=== PATIENT | female | born 1965 | race Two or more races ===

== ENCOUNTER 2018-11-16 16:59 | Inpatient (IN) | payer MEDICARE, MEDICAID ==
[~2018-11-16] VITALS: Ht 149.9 cm; Wt 69.4 kg
--- NOTE | 2018-11-16 17:30 | NUR ---
ED Nurse Note: Pt came from [facility] due to ALOC that started 3 days ago. According to EMS, pt is normall A + O x4. Pt is only able to state her name. Pt has ESRD and has a fistula on her right upper arm. Theres an old fistula site on her left upper arm used for BP. Pt skin warm to touch. Sating at 100%on room air Pt went down to CT and xrays were completed.
[2018-11-16] MEDS ORDERED: NORCO 5-325 TA1 EACH ORAL (17:33)
[2018-11-16] MEDS ORDERED: FLEET ENEMA133 ML RECTAL (17:33)
[2018-11-16] MEDS ORDERED: MILK OF MA2400 MG/10 ORAL (17:33)
[2018-11-16] MEDS ORDERED: BISACODYL10 M1 RC (17:33)
[2018-11-16] MEDS ORDERED: TYLENOL EXTRA500 MG ORAL (17:33)
[2018-11-16 17:34] VITALS: BP 161/62
--- NOTE | 2018-11-16 17:37 | NUR ---
ED Nurse Note: Blood has been collected and sent to lab.
--- NOTE | 2018-11-16 17:42 | NUR ---
ED Nurse Note: Pt came back from CT.
--- NOTE | 2018-11-16 17:44 | NUR ---
ED Nurse Note: Notified MD of pt unable to provide urine. Will continue to monitor.
--- NOTE | 2018-11-16 17:56 | Emergency Room Report ---
History of Present Illness General Chief Complaint: Altered Level of Consciousness Source: EMS, PMD Present Illness HPI 53-year-old female coming from skilled nursing, has a history of right hip fracture , end-stage renal disease, hypertension presenting with lethargy for the last 3 days as well as episode of hypoxia today. Reportedly at the skilled nursing sheet desat to the 80s, EMS said that she has been above 90 the entire time. Patient is very lethargic, only AOx1 but somewhat answering some questions appropriately. Says that she does feel short of breath. Not noted to be coughing.. No other history able to be obtained Allergies: Coded Allergies: No Known Allergies (Unverified , 11/16/18) Patient History Past Medical History: see triage record Past Surgical History: none Pertinent Family History: none Now: No Reviewed Nursing Documentation: PMH: Agreed; PSxH: Agreed Nursing Documentation-PMH Hx Dialysis: Yes Review of Systems All Other Systems: negative except mentioned in HPI Physical Exam Vital Signs Date Time Temp Pulse Resp B/P (MAP) Pulse Ox O2 Delivery O2 Flow Rate FiO2 11/16/18 16:53 98.4 87 16 166/88 100 Room Air 11/16/18 17:34 100 Sp02 EP Interpretation: reviewed, normal General Appearance: alert, mild distress, Chronically Ill Head: normocephalic, atraumatic Eyes: bilateral eye normal inspection, bilateral eye PERRL, bilateral eye EOMI ENT: normal ENT inspection, normal pharynx, normal voice, moist mucus membranes Neck: normal inspection, full range of motion, supple Respiratory: other - Short of breath but she is speaking complete sentences satting 99% on 2 L nasal cannula, coarse breath sounds on the right side Cardiovascular #1: normal inspection, regular rate, rhythm, normal capillary refill Cardiovascular #2: 2+ radial (R), 2+ radial (L) Gastrointestinal: normal inspection, non tender, soft, non-distended, no guarding Musculoskeletal: other - Limited range of motion of right hip secondary to pain , which is chronic for her secondary to hip replacement Neurologic: other - aox1 only Psychiatric: normal inspection, judgement/insight normal, memory normal Skin: normal inspection, normal color, no rash, warm/dry, well hydrated, normal turgor Medical Decision Making Diagnostic Impression: Primary Impression: Altered level of consciousness Additional Impression: Healthcare-associated pneumonia ER Course 53-year-old female, lethargy for the last 3 days, also hypoxic today DDX: Dehydration, electrolyte disturbance, ACS, URI, pneumonia Plan: Obtain labs, ua, EKG, CXR ER course: Patient has been monitored during ED stay, HD stable given abx for HCAP Disposition: Patient is to be admitted to tele D/W hospitalist Dr. Rider Please note that this Emergency Department Report was dictated using oragenic[employer] worker masters technology software, occasionally this can lead to erroneous entry secondary to interpretation by the dictation equipment. EKG Diagnostic Results EP Interpretation: Yes Rate: normal Rhythm: NSR ST Segments: T-wave flattening noted to be diffuse ASA given to patient: No Rhythm Strip EP Interpretation: Yes Rate: 81 Rhythm: NSR, no PVCs, no ectopy Chest X-ray CXR: Ordered: Yes 1 view Indication: sob EP interpretation: Yes Interpretation: Cardiomegaly with some congestion and pop possible right-sided pneumonia Impression: Cardiomegaly with some congestion and pop possible right-sided pneumonia Electronically signed by Narendra Alves MD Laboratory Tests Test 11/16/18 17:25 White Blood Count 3.5 K/UL (4.8-10.8) L Red Blood Count 2.69 M/UL (4.20-5.40) L Hemoglobin 8.8 G/DL (12.0-16.0) L Hematocrit 28.1 % (37.0-47.0) L Mean Corpuscular Volume 104 FL (80-99) H Mean Corpuscular Hemoglobin 32.6 PG (27.0-31.0) H Mean Corpuscular Hemoglobin Concent 31.2 G/DL (32.0-36.0) L Red Cell Distribution Width 18.5 % (11.6-14.8) H Platelet Count 98 K/UL (150-450) L Mean Platelet Volume 7.8 FL (6.5-10.1) Neutrophils (%) (Auto) % (45.0-75.0) Lymphocytes (%) (Auto) % (20.0-45.0) Monocytes (%) (Auto) % (1.0-10.0) Eosinophils (%) (Auto) % (0.0-3.0) Basophils (%) (Auto) % (0.0-2.0) Differential Total Cells Counted 100 Neutrophils % (Manual) 56 % (45-75) Lymphocytes % (Manual) 36 % (20-45) Monocytes % (Manual) 5 % (1-10) Eosinophils % (Manual) 2 % (0-3) Basophils % (Manual) 1 % (0-2) Band Neutrophils 0 % (0-8) Platelet Estimate Decreased L Platelet Morphology Normal Hypochromasia 1+ Anisocytosis 1+ Sodium Level 139 MMOL/L (136-145) Potassium Level 5.1 MMOL/L (3.5-5.1) Chloride Level 100 MMOL/L (98-107) Carbon Dioxide Level 28 MMOL/L (21-32) Anion Gap 11 mmol/L (5-15) Blood Urea Nitrogen 46 mg/dL (7-18) H Creatinine 5.3 MG/DL (0.55-1.30) H Estimate Glomerular Filtration Rate 8.4 mL/min (>60) Glucose Level 101 MG/DL (74-106) Lactic Acid Level 2.30 mmol/L (0.4-2.0) H Calcium Level 9.8 MG/DL (8.5-10.1) Total Bilirubin 0.4 MG/DL (0.2-1.0) Aspartate Amino Transferase (AST) 23 U/L (15-37) Alanine Aminotransferase (ALT) 16 U/L (12-78) Alkaline Phosphatase 1175 U/L (46-116) H Total Creatine Kinase 34 U/L (26-308) Troponin I 0.008 ng/mL (0.000-0.056) Pro-B-Type Natriuretic Peptide 3750 pg/mL (0-125) H Total Protein 6.7 G/DL (6.4-8.2) Albumin 3.4 G/DL (3.4-5.0) Globulin 3.3 g/dL Albumin/Globulin Ratio 1.0 (1.0-2.7) Last Vital Signs Date Time Temp Pulse Resp B/P (MAP) Pulse Ox O2 Delivery O2 Flow Rate FiO2 11/16/18 17:34 84 22 Room Air 100 11/16/18 17:34 97.1 161/62 100 Disposition: ADMITTED INPATIENT Condition: Serious Narendra Alves M.D. Nov 16, 2018 17:56
[2018-11-16 18:04] LABS: HEMATOCRIT 28.1 % (37.0-47.0); HEMOGLOBIN 8.8 G/DL (12.0-16.0); MEAN CORPUSCULAR VOLUME 104 FL (80-99); PLATELET COUNT 98 K/UL (150-450); RED BLOOD COUNT 2.69 M/UL (4.20-5.40); RED CELL DISTRIBUTION WIDTH 18.5 % (11.6-14.8); WHITE BLOOD COUNT 3.5 K/UL (4.8-10.8)
[2018-11-16 18:11] LABS: ALANINE AMINOTRANSFERASE 16 U/L (12-78); ALBUMIN 3.4 G/DL (3.4-5.0); ALKALINE PHOSPHATASE 1175 U/L (46-116); ANION GAP 11 mmol/L (5-15); ASPARTATE AMINO TRANSFERASE 23 U/L (15-37); BILIRUBIN,TOTAL 0.4 MG/DL (0.2-1.0); BLOOD UREA NITROGEN 46 mg/dL (7-18); CALCIUM 9.8 MG/DL (8.5-10.1); CARBON DIOXIDE 28 MMOL/L (21-32); CHLORIDE 100 MMOL/L (98-107); CREATINE KINASE 34 U/L (26-308); CREATININE 5.3 MG/DL (0.55-1.30); POTASSIUM 5.1 MMOL/L (3.5-5.1); SODIUM 139 MMOL/L (136-145)
--- NOTE | 2018-11-16 19:12 | NUR ---
HAND-OFF: Report given to NICHO Wong.
[2018-11-16 19:46] VITALS: BP 178/62
--- NOTE | 2018-11-16 20:34 | NUR ---
ED Nurse Note: pt on bed, responsive to name, not verbally responsive. vital sign within normal limit. will continue to monitor.
[2018-11-16 23:45] VITALS: BP 143/78
--- NOTE | 2018-11-16 23:50 | NUR ---
ED Nurse Note: pt admitted in the hospital pt transfered to tele 202 with tape coater and monitor. report given to mayela obando
[2018-11-17] VITALS: BP 160/71
--- NOTE | 2018-11-17 00:10 | NUR ---
NURSE NOTES: Received patient from ED, report received from NICHO Wong. Patient awake, alert and verbally responsive. No SOB, no acute distress, denies any pain nor any discomfort at this time. No skin breakdown noted, R upper arm with fistula for HD. IV sites on L FA #20 and L hand #22, both sites patent and intact. Oriented to unit and staff. Placed environmental monitoring technician. No belongings. Bed at lowest position, call light within reach. Paged Dr. Doran for admission orders.
[2018-11-17 04:00] VITALS: BP 155/69
--- NOTE | 2018-11-17 06:50 | Consultation ---
History of Present Illness General Date patient seen: Nov 17, 2018 Chief Complaint: Altered Level of Consciousness Present Illness Allergies: Coded Allergies: No Known Allergies (Unverified , 11/16/18) Medication History Scheduled Magnesium Hydroxide* (Milk Of Magnesia*), 30 ML ORAL DAILY, (Reported) Na Phos,M-B/Na Phos,Di-Ba* (Fleet Enema*), 133 ML RECTAL DAILY, (Reported) Scheduled PRN Acetaminophen* (Tylenol Extra Strength*), 500 MG ORAL Q6H PRN for Mild Pain/ Temp > 100.5, (Reported) Hydrocodone Bit/Acetaminophen 5-325* ([place] 5-325*), 1 TAB ORAL Q6H PRN for For Pain, (Reported) Miscellaneous Medications Bisacodyl (Bisacodyl), 10 MG RC, (Reported) Patient History Healthcare decision maker Resuscitation status Full Code Advanced Directive on File Yes Physical Exam Last 24 Hour Vital Signs Date Time Temp Pulse Resp B/P (MAP) Pulse Ox O2 Delivery O2 Flow Rate FiO2 11/17/18 04:00 82 11/17/18 04:00 97.8 81 18 155/69 (97) 98 11/17/18 00:13 Room Air 11/17/18 00:00 80 11/17/18 00:00 98.1 79 18 160/71 (100) 98 11/16/18 23:50 98.0 82 16 143/54 100 Room Air 82 11/16/18 23:45 98.0 82 16 143/78 100 Room Air 11/16/18 19:46 98.3 82 16 178/62 100 Room Air 11/16/18 17:34 84 22 Room Air 100 11/16/18 17:34 97.1 84 22 161/62 100 Room Air 11/16/18 16:53 98.4 87 16 166/88 100 Room Air Intake and Output 11/16/18 11/17/18 19:00 07:00 Intake Total 60 ml Balance 60 ml Intake Oral 60 ml Laboratory Tests Test 11/16/18 17:25 11/16/18 18:30 White Blood Count 3.5 K/UL (4.8-10.8) L Red Blood Count 2.69 M/UL (4.20-5.40) L Hemoglobin 8.8 G/DL (12.0-16.0) L Hematocrit 28.1 % (37.0-47.0) L Mean Corpuscular Volume 104 FL (80-99) H Mean Corpuscular Hemoglobin 32.6 PG (27.0-31.0) H Mean Corpuscular Hemoglobin Concent 31.2 G/DL (32.0-36.0) L Red Cell Distribution Width 18.5 % (11.6-14.8) H Platelet Count 98 K/UL (150-450) L Mean Platelet Volume 7.8 FL (6.5-10.1) Neutrophils (%) (Auto) % (45.0-75.0) Lymphocytes (%) (Auto) % (20.0-45.0) Monocytes (%) (Auto) % (1.0-10.0) Eosinophils (%) (Auto) % (0.0-3.0) Basophils (%) (Auto) % (0.0-2.0) Differential Total Cells Counted 100 Neutrophils % (Manual) 56 % (45-75) Lymphocytes % (Manual) 36 % (20-45) Monocytes % (Manual) 5 % (1-10) Eosinophils % (Manual) 2 % (0-3) Basophils % (Manual) 1 % (0-2) Band Neutrophils 0 % (0-8) Platelet Estimate Decreased L Platelet Morphology Normal Hypochromasia 1+ Anisocytosis 1+ Sodium Level 139 MMOL/L (136-145) Potassium Level 5.1 MMOL/L (3.5-5.1) Chloride Level 100 MMOL/L (98-107) Carbon Dioxide Level 28 MMOL/L (21-32) Anion Gap 11 mmol/L (5-15) Blood Urea Nitrogen 46 mg/dL (7-18) H Creatinine 5.3 MG/DL (0.55-1.30) H Estimat Glomerular Filtration Rate 8.4 mL/min (>60) Glucose Level 101 MG/DL (74-106) Lactic Acid Level 2.30 mmol/L (0.4-2.0) H 1.80 mmol/L (0.66-2.22) Calcium Level 9.8 MG/DL (8.5-10.1) Total Bilirubin 0.4 MG/DL (0.2-1.0) Aspartate Amino Transf (AST/SGOT) 23 U/L (15-37) Alanine Aminotransferase (ALT/SGPT) 16 U/L (12-78) Alkaline Phosphatase 1175 U/L (46-116) H Total Creatine Kinase 34 U/L (26-308) Troponin I 0.008 ng/mL (0.000-0.056) Pro-B-Type Natriuretic Peptide 3750 pg/mL (0-125) H Total Protein 6.7 G/DL (6.4-8.2) Albumin 3.4 G/DL (3.4-5.0) Globulin 3.3 g/dL Albumin/Globulin Ratio 1.0 (1.0-2.7) Microbiology Date/Time Source Procedure Growth Status 11/16/18 18:30 Nasal Nares Influenza Types A,B Antigen (ALFA) - Final Complete Height (Feet): 4 Height (Inches): 11.00 Weight (Pounds): 100 Medications Current Medications Medications (Trade) Dose Ordered Sig/Claudy Route PRN Reason Start Time Stop Time Status Last Admin Dose Admin Acetaminophen (Tylenol) 650 mg Q6H PRN ORAL Mild Pain/Temp > 100.5 11/17/18 00:45 12/17/18 00:44 Acetaminophen/ Hydrocodone Bitart ([place] 5/325) 1 tab Q4H PRN ORAL For moderate to severe pain 11/17/18 00:45 11/24/18 00:44 Aspirin (ASA) 81 mg DAILY ORAL 11/17/18 09:00 12/17/18 08:59 Clonidine HCl (Catapres Tab) 0.1 mg Q6H PRN ORAL For High Blood Pressure 11/17/18 00:45 12/17/18 00:44 Docusate Sodium (Colace) 100 mg TWICE A DAY ORAL 11/17/18 09:00 12/17/18 08:59 Ferric Citrate (Auryxia 210mg) 420 mg TID ORAL 11/17/18 09:00 12/17/18 08:59 Gabapentin (Neurontin) 100 mg Q8HR ORAL 11/17/18 06:00 12/17/18 05:59 11/17/18 06:10 Sevelamer Carbonate (Renvela) 240 mg THREE TIMES A DAY ORAL 11/17/18 09:00 12/17/18 08:59 UNV Vitamin B Complex/ Vit C/Folic Acid (Nephrovite) 1 tab DAILY ORAL 11/17/18 09:00 12/17/18 08:59 Assessment/Plan Status Narrative Hematology Consult Note REQ MD: Billy Doran DOS: 11/17/18 RFC: Panctyopenia eval Chief Complaint: Altered Level of Consciousness ID 53-year-old female coming from [facility], has a history of right hip fracture , end-stage renal disease, hypertension presenting with lethargy for the last 3 days as well as episode of hypoxia today. Reportedly at the halfway sheet desat to the 80s, EMS said that she has been above 90 the entire time. Patient is very lethargic, only AOx1 but somewhat answering some questions appropriately. Says that she does feel short of breath. Not noted to be coughing. This is her first time here and do not have prior records, other services consulted this am as well. Coded Allergies: No Known Allergies (Unverified , 11/16/18) Patient History Past Medical History: see triage record Past Surgical History: RENAL transplant, hip replacement Pertinent Family History: none Now: No Reviewed Nursing Documentation: PMH: Agreed; PSxH: Agreed Hx Dialysis: Yes Review of Systems All Other Systems: negative except mentioned in HPI Patient is a poor historian difficult to obtain any meaningful history ER Physical Exam - General Physical Exam Last 24 Hour Vital Signs Date Time Temp Pulse Resp B/P (MAP) Pulse Ox O2 Delivery O2 Flow Rate FiO2 11/17/18 04:00 82 11/17/18 04:00 97.8 81 18 155/69 (97) 98 11/17/18 00:13 Room Air 11/17/18 00:00 80 11/17/18 00:00 98.1 79 18 160/71 (100) 98 11/16/18 23:50 98.0 82 16 143/54 100 Room Air 82 11/16/18 23:45 98.0 82 16 143/78 100 Room Air 11/16/18 19:46 98.3 82 16 178/62 100 Room Air 11/16/18 17:34 84 22 Room Air 100 11/16/18 17:34 97.1 84 22 161/62 100 Room Air 11/16/18 16:53 98.4 87 16 166/88 100 Room Air General Appearance: alert, mild distress, Chronically Ill Eyes: bilateral eye normal inspection, bilateral eye PERRL ENT: normal ENT inspection, normal pharynx, normal voice Neck: normal inspection Respiratory: speaking complete sentences satting 99% on 2 Lnc oarse breath sounds on the right side Cardiovascular normal inspection, regular rate, rhythm Gastrointestinal: normal inspection, non tender, soft, nt Musculoskeletal: other - Limited range of motion of right hip secondary to pain , hip replacement Neurologic: other - aox1 only Psychiatric: normal inspection, memory normal Skin: normal inspection, normal color, no rash, warm/dry, well hydrated Laboratory Tests Test 11/16/18 17:25 11/16/18 18:30 White Blood Count 3.5 K/UL (4.8-10.8) L Red Blood Count 2.69 M/UL (4.20-5.40) L Hemoglobin 8.8 G/DL (12.0-16.0) L Hematocrit 28.1 % (37.0-47.0) L Mean Corpuscular Volume 104 FL (80-99) H Mean Corpuscular Hemoglobin 32.6 PG (27.0-31.0) H Mean Corpuscular Hemoglobin Concent 31.2 G/DL (32.0-36.0) L Red Cell Distribution Width 18.5 % (11.6-14.8) H Platelet Count 98 K/UL (150-450) L Mean Platelet Volume 7.8 FL (6.5-10.1) Neutrophils (%) (Auto) % (45.0-75.0) Lymphocytes (%) (Auto) % (20.0-45.0) Monocytes (%) (Auto) % (1.0-10.0) Eosinophils (%) (Auto) % (0.0-3.0) Basophils (%) (Auto) % (0.0-2.0) Differential Total Cells Counted 100 Neutrophils % (Manual) 56 % (45-75) Lymphocytes % (Manual) 36 % (20-45) Monocytes % (Manual) 5 % (1-10) Eosinophils % (Manual) 2 % (0-3) Basophils % (Manual) 1 % (0-2) Band Neutrophils 0 % (0-8) Platelet Estimate Decreased L Platelet Morphology Normal Hypochromasia 1+ Anisocytosis 1+ Sodium Level 139 MMOL/L (136-145) Potassium Level 5.1 MMOL/L (3.5-5.1) Chloride Level 100 MMOL/L (98-107) Carbon Dioxide Level 28 MMOL/L (21-32) Anion Gap 11 mmol/L (5-15) Blood Urea Nitrogen 46 mg/dL (7-18) H Creatinine 5.3 MG/DL (0.55-1.30) H Estimat Glomerular Filtration Rate 8.4 mL/min (>60) Glucose Level 101 MG/DL (74-106) Lactic Acid Level 2.30 mmol/L (0.4-2.0) H 1.80 mmol/L (0.66-2.22) Calcium Level 9.8 MG/DL (8.5-10.1) Total Bilirubin 0.4 MG/DL (0.2-1.0) Aspartate Amino Transf (AST/SGOT) 23 U/L (15-37) Alanine Aminotransferase (ALT/SGPT) 16 U/L (12-78) Alkaline Phosphatase 1175 U/L (46-116) H Total Creatine Kinase 34 U/L (26-308) Troponin I 0.008 ng/mL (0.000-0.056) Pro-B-Type Natriuretic Peptide 3750 pg/mL (0-125) H Total Protein 6.7 G/DL (6.4-8.2) Albumin 3.4 G/DL (3.4-5.0) Globulin 3.3 g/dL Albumin/Globulin Ratio 1.0 (1.0-2.7) Assessment and Recs: # Pancytopenia cause is yet unknown, patient is a very poor historian, and no prior labs noted in the emr or chart --> begin w/u with iron panel, hepatitis, hiv, us abdomen --> get a ammonia level --> meds reviewed, no culprits noted --> if above doesn't gonzalez out, consider to get a bone marrow biopsy --> neupogen if anc <1000, hgb >7, plt >20k # Altered level of consciousness -- could be related to pna --> abx have been started # Healthcare-associated pneumonia # ESRD nephro consulted # Lactic acidosis --> lactate downtrended # Hypoxic today due to pna # Dehydration, electrolyte disturbance Time of note does not reflect time of encounter Greatly appreciate consultation Endy Fox MD Nov 17, 2018 06:50
--- NOTE | 2018-11-17 07:22 | NUR ---
HAND-OFF: Report given to NICHO Munson. Endorsed plan of care.
--- NOTE | 2018-11-17 07:23 | NUR ---
NURSE NOTES: Received patient in bed. In no apparent distress. On room air. In no apparent distress. Will continue plan of care.
[2018-11-17 08:00] VITALS: BP 147/65
[2018-11-17] MEDS ORDERED: Docusate 100mg cap ORAL SCH (09:00)
[2018-11-17] MEDS: Nephrovite tab (Rena-Vite) ORAL SCH (09:07)
[2018-11-17] MEDS: Aspirin Baby 81mg ORAL SCH (09:07)
--- NOTE | 2018-11-17 09:24 | Diagnostic Imaging Report ---
Indications: Altered mental status Technique: Spiral acquisitions obtained through the brain. Angled axial and coronal 5 x 5 mm slices were reconstructed. Total dose length product 1344.28 mGycm. CTDI vol(s) 70.38 mGy. Dose reduction achieved using automated exposure control Comparison: None. Findings: Extra-axial CSF spaces are prominent, consistent with cortical volume loss, out of proportion to age. No acute intracranial hemorrhage nor edema. No mass effect nor midline shift. Normal carmona-white differentiation. There are bilateral maxillary sinus polyps versus mucous retention cysts. There is bilateral ethmoid sinus disease. Unusual appearance to the calvarium, with absence of the diploic space. Mastoids are clear Impression: Through cortical volume loss, out of proportion to patient's age Negative for acute intracranial bleed or mass effect Unusual appearance to the bones. Correlate with any clinical history of systemic disease. This agrees with the preliminary interpretation provided overnight by [facility] teleradiology service. The CT scanner at [facility] is accredited by the [employer] and the scans are performed using protocols designed to limit radiation exposure to as low as reasonably achievable to attain images of sufficient resolution adequate for diagnostic evaluation.
--- NOTE | 2018-11-17 09:30 | NUR ---
HAND-OFF: Report given to NICHO Ibarra.
[2018-11-17 10:14] LABS: HEMATOCRIT 27.8 % (37.0-47.0); HEMOGLOBIN 8.5 G/DL (12.0-16.0); MEAN CORPUSCULAR VOLUME 105 FL (80-99); PLATELET COUNT 91 K/UL (150-450); RED BLOOD COUNT 2.64 M/UL (4.20-5.40); RED CELL DISTRIBUTION WIDTH 18.2 % (11.6-14.8)
[2018-11-17 10:26] LABS: INR 1.1 (0.9-1.1)
[2018-11-17 10:40] LABS: ALANINE AMINOTRANSFERASE 12 U/L (12-78); ALBUMIN 2.9 G/DL (3.4-5.0); ALBUMIN/GLOBULIN RATIO 0.9 (1.0-2.7); ALKALINE PHOSPHATASE 1040 U/L (46-116); ANION GAP 8 mmol/L (5-15); ASPARTATE AMINO TRANSFERASE 18 U/L (15-37); BILIRUBIN,TOTAL 0.4 MG/DL (0.2-1.0); BLOOD UREA NITROGEN 50 mg/dL (7-18); CARBON DIOXIDE 29 MMOL/L (21-32); CHLORIDE 100 MMOL/L (98-107); CREATININE 5.8 MG/DL (0.55-1.30); POTASSIUM 5.3 MMOL/L (3.5-5.1); SODIUM 137 MMOL/L (136-145)
--- NOTE | 2018-11-17 11:19 | Diagnostic Imaging Report ---
Indication: Shortness of breath Technique: One view of the chest Comparison: none Findings: There is mild interstitial prominence and central bronchial wall thickening, acuity indeterminate. The heart size is upper limits of normal. Pleural spaces are clear. No focal airspace consolidation. Densities are seen in the upper abdomen. This may reflect contrast from prior enteric contrast administration versus calcifications. Impression: Acuity indeterminate mild bilateral interstitial disease. Given presence of central bronchial wall thickening, this may well be chronic. Negative for infiltrate or effusion. Other findings as noted
[2018-11-17 12:00] VITALS: BP 127/50
--- NOTE | 2018-11-17 12:10 | NUR ---
NURSE NOTES: Ferric citrate was ordered for the patient. The pharmacy does not dispense the medication. The patient said her family is not able to bring the medication to the hospital. Dr. Doran was made aware.
--- NOTE | 2018-11-17 14:00 | NUR ---
RESPIRATORY NOTE: Pt on room air. MD ordered ABG attempted once patient could not tolerate pain. Will try again later (patient is slovenian speaking)
--- NOTE | 2018-11-17 14:27 | NUR ---
CASE MANAGEMENT:REVIEW BIBA FROM [facility] CC; ALOC PMH: ESRD ON HD SI: AMS. TACHYCARDIA. PNA 98.5 87 16 166/88 100% ON RA WBC-3.5 H/H-8.8/28.1 IS: CT HEAD BLOOD CX : TO TELEMETRY PLAN: NEURO CHECKS Q4HRS
[2018-11-17 16:00] VITALS: BP 138/62
--- NOTE | 2018-11-17 16:03 | Cardiology Report ---
APPROVED REPORT EKG Measurement Heart [id number] Normal sinus rhythm Low voltage QRS Cannot rule out Anterior infarct, age undetermined Abnormal ECG
--- NOTE | 2018-11-17 16:08 | Cardiology Report ---
APPROVED REPORT EXAM: Two-dimensional and M-mode echocardiogram with Doppler and color Doppler. INDICATION Congestive Heart Failure M-Mode DIMENSIONS IVSd0.7 (0.7-1.1cm)Left Atrium (MM)3.4 (1.6-4.0cm) LVDd5.9 (3.5-5.6cm)Aortic Root3.4 (2.0-3.7cm) PWd0.8 (0.7-1.1cm)Aortic Cusp Exc.1.6 (1.5-2.0cm) IVSs1.4 cm LVDs3.4 (2.5-4.0cm) PWs1.0 cm Normal left ventricular chamber size, systolic function and wall motion. Left ventricular ejection fraction estimated to be 60-65 %. Mild left ventricular hypertrophy. Small posterior pericardial effusion. Pleural effusion present . Mild left atrial enlargement by 2-D . Right cardiac chamber size are within normal limits. Moderately thickened mitral valve leaflets with normal excursion . Moderate mitral annulus and aortic root calcification. Pulmonic valve not well visualized. Normal tricuspid valve structure. IVC dilated at 2.5 cm with slight physiologic collapse suggestive of increased RA pressure. A color flow and spectral Doppler study was performed and revealed: No aortic regurgitation. Mild to moderate mitral regurgitation. Normal left ventricular diastolic function . Mild tricuspid regurgitation. Tricuspid systolic velocities suggests peak right ventricular systolic pressure of 51 mmHg, consistent with moderate pulmonary hypertension.
--- NOTE | 2018-11-17 16:36 | Consultation ---
Consult Note Consult Note asked to eval for dialysis management 53-year-old female coming from [facility], has a history of right hip fracture , end-stage renal disease, hypertension presenting with lethargy for the last 3 days as well as episode of hypoxia today. Reportedly at the [facility] sheet desat to the 80s, EMS said that she has been above 90 the entire time. Patient is very lethargic, only AOx1 but somewhat answering some questions appropriately. Says that she does feel short of breath. Not noted to be coughing.. No other history able to be obtained No Known Allergies (Unverified , 11/16/18) Hx Dialysis: Yes HTN examined interviewed via translater Assessment/Plan ESRD on HD M W Fr - on HD about 12 years Admitted with CP and SOB Anemia of CKD HTN RENAL transplant, right hip replacement Pneumonia / Hypoxia Hypothyroidism HD in am Phos binders Synthroid Dexter Mccall MD Nov 17, 2018 16:36
[2018-11-17] MEDS: Docusate 100mg cap ORAL SCH (18:11)
--- NOTE | 2018-11-17 18:28 | NUR ---
NURSE NOTES: Patient has a dialysis order for 11/18. [facility] made aware.
--- NOTE | 2018-11-17 18:30 | Consultation ---
DATE OF CONSULTATION: 11/17/2018 INFECTIOUS DISEASE CONSULTATION CONSULTING PHYSICIAN: Robe Elkins M.D. PRIMARY ATTENDING PHYSICIAN: Mitchell Doran M.D. REASON FOR CONSULTATION: Bronchitis. HISTORY OF PRESENT ILLNESS: This is a 53-year-old female admitted yesterday from a [facility] facility. She had some lethargy for 3 days and has shortness of breath. At the time of admission, she had mild lactic acidosis. No fever. No chills. No coughing. Chest x-ray showed mild bilateral interstitial disease with bronchial wall thickening that may be chronic. PAST MEDICAL HISTORY: Significant for end-stage renal disease, on hemodialysis, hypertension, anemia, has history of hip replacement, has history of polycystic kidney disease, has history of renal transplant, has thyroid nodule, anemia. ALLERGIES: No known drug allergies. MEDICATIONS: Getting Nephro-Otis, aspirin, gabapentin, clonidine, Tylenol, and [place]. SOCIAL HISTORY: Single. custodial resident. Denies alcohol, drug abuse, or smoking. REVIEW OF SYSTEMS: The patient denies any fever, chills, sore throat, coughing, chest pain. PHYSICAL EXAMINATION: VITAL SIGNS: Temperature 98.6, pulse 75, blood pressure 147/65. GENERAL APPEARANCE: No acute distress. Seems to be thin. HEAD AND NECK: Mildly whitish tongue. HEART: Normal rate. LUNGS: Clear. ABDOMEN: Soft, nontender. EXTREMITIES: She has edema of the legs. She has right upper extremity AV shunt and edema of right arm. LABORATORY AND DIAGNOSTIC DATA: Sodium 137, potassium 5.3, chloride 100, bicarbonate 29, BUN 50, creatinine 5.8. WBC 3000, hemoglobin 8.5, hematocrit 27.8, platelets 91,000. Influenza A and B are negative. Head CT showed atrophy more than age-related atrophy. Chest x-ray, bilateral interstitial disease. IMPRESSION: Bronchitis likely chronic, altered mental status with lethargy, hypothyroidism, pancytopenia, end-stage renal disease, hypertension, thyroid nodule discovered in jail before admission. RECOMMENDATION: We will observe off antibiotic. If the patient has symptoms, develops fever, or leukocytosis, we will give antibiotic. At the end of my exam, I thank Dr. Doran for involving me in the care of this patient. Robe Elkins M.D. DR: Lady JOB#: [id number] CC: ALEXANDER
--- NOTE | 2018-11-17 19:31 | NUR ---
HAND-OFF: Report given to NICHO Barraza.
--- NOTE | 2018-11-17 19:40 | NUR ---
NURSE NOTES: Received pt from NICHO Ibrara. Pt asleep. Bed in lowest position. Call light within reach. Will continue to monitor.
--- NOTE | 2018-11-17 19:57 | Consultation ---
Consult Note Assessment/Plan DICT # [id number] Adalberto Carreon MD Nov 17, 2018 19:57
[2018-11-17 20:00] VITALS: BP 126/52
--- NOTE | 2018-11-17 22:00 | Consultation ---
DATE OF CONSULTATION: 11/17/2018 PULMONARY CONSULTATION CONSULTING PHYSICIAN: Adalberto Carreon M.D. REFERRING PHYSICIAN: Mitchell Doran M.D. REASON FOR CONSULTATION: Hypoxemia. HISTORY OF PRESENT ILLNESS: The patient is a very unfortunate 53-year-old longterm resident with a history of polycystic kidney disease, status post failed transplant, now on dialysis; hypothyroidism; hypertension; anemia; recent hip fracture; and known thyroid nodule at a longterm, who presented yesterday with desaturation at the SNF and altered mental status. The patient's preliminary workup in the ER was negative. She has not been oxygen dependent. CT of the brain did not show any acute changes and chest x-ray showed changes compatible with chronic lung disease. Currently, the patient herself has no complaints. She denies any fevers, chills, headaches, dizziness, chest pain, or shortness of breath. Per record, she had acute loss of consciousness at the facility. Her baseline is unclear based on my review. An echo was ordered by myself, which showed a PA systolic pressure of 51 with mild TR, mild to moderate MR, LVEF of 65% with mild LVH, and no significant diastolic dysfunction. PAST MEDICAL HISTORY: 1. End-stage renal disease, status post failed transplant, on dialysis. 2. Recent hip fracture. 3. Hypertension. 4. Anemia. 5. Hypothyroidism. 6. Known thyroid nodule. PAST SURGICAL HISTORY: Renal transplant. ALLERGIES: No known drug allergies. MEDICATIONS: Prior to admission medications reviewed. Current medications reviewed. SOCIAL HISTORY: She denies tobacco, alcohol, or drug use. FAMILY HISTORY: Noncontributory. REVIEW OF SYSTEMS: Negative other than history of present illness. PHYSICAL EXAMINATION: VITAL SIGNS: Temperature 97.9, pulse 76, blood pressure 127/50, and respirations 18. Saturating 98% on room air. GENERAL: She is a well-developed and well-nourished female, appearing older than her stated age HEENT: Normocephalic and atraumatic. Oropharynx is clear with moist mucous membranes. NECK: Supple without lymphadenopathy or jugular venous distention. CHEST: Scattered coarse breath sounds, but fairly clear with good air movement. HEART: Regular rate and rhythm. P2 is noted. ABDOMEN: Soft, nontender, and nondistended. EXTREMITIES: No cyanosis, clubbing, or edema. ANCILLARY DATA: White count 3, hemoglobin 8.5, and platelet count 91. INR 1.1. Sodium 137, potassium 5.3, chloride 100, bicarbonate 29, BUN 50, and creatinine 5.1. Ferritin 1311. Calcium 10. Total bilirubin 0.3, AST 18, ALT 12, and alkaline phosphatase . LDH 127. CRP 1.5. Total protein 6.2. Albumin 2.9. Globulin 3.3. Free T4 0.64. TSH 11. Folate 19.7. Vitamin B12 477. Serologies are pending. Cultures, rapid flu was negative. On 11/16/2018, CT head, cortical volume loss out of proportion to the patient's age. Negative for intracranial bleed. Unusual appearance of the bones. 11/16/2018, chest x-ray shows some mild interstitial prominence. Echocardiogram was noted. ASSESSMENT: The patient is a very unfortunate 53-year-old female, a longterm resident, with a history of end-stage renal disease, status post failed transplant, polycystic kidneys; hypertension; hypothyroidism; and hip fracture presenting with altered mental status and transient hypoxemia at the facility. Currently, her vitals are stable and she is in no respiratory distress. She has been seen by Infectious Disease service and is being observed off antibiotics and pancytopenia is being worked up by Dr. Fox. I am concerned about her hypoxemia at the facility in the setting of elevated PA pressures, though she is hemodynamically stable with no evidence of RV dysfunction. Nonetheless, I will obtain a duplex and D-dimer to rule out venous thromboembolism and an ABG to assess baseline gas exchange. Furthermore, she has chronic interstitial disease and should have a CT of the chest. I am going to wait for the D-dimer to come back. If it is elevated, we will get an angio. If it is negative and the duplex is negative, I will likely get a high-resolution CT. PROBLEM LIST: 1. Transient hypoxemia. 2. Pulmonary hypertension. 3. End-stage renal disease, on dialysis. 4. History of failed renal transplant. 5. Pancytopenia with unclear etiology. 6. Altered level of consciousness. 7. Chronic interstitial changes in the lungs, likely underlying lung disease. 8. Bronchitis. 9. Hypothyroidism. 10. Known thyroid nodule. 11. Lactic acidosis, resolved. 12. Recent hip fracture. TREATMENT PLAN: 1. Optimize pulmonary hygiene/mobilize as tolerated. 2. PRN O2. 3. Check an ABG. 4. Check duplex and D-dimer. 5. If duplex is negative and D-dimer is positive, I will check a CT angio of the chest. 6. If the D-dimer is negative, I will check a noncontrast CT of the chest to evaluate the parenchyma. 7. Observe off antibiotics per Infectious Disease, though with a low threshold to start antimicrobial coverage. 8. Monitor volumes, dialysis per Renal. 9. Workup of pancytopenia per Dr. Fox. 10. DVT prophylaxis. The patient cannot have SCDs until the duplex is done and is not on heparin secondary to thrombocytopenia. 11. The patient is a Full Code. Dr. Doran, thank you for allowing me to assist in the care of your patient. If I may be of any assistance in the future, please do not hesitate to ask. Adalberto Carreon M.D. DR: SADAF JOB#: [id number] CC:
[2018-11-18] VITALS: BP 144/59
--- NOTE | 2018-11-18 01:56 | NUR ---
HAND-OFF: Report given to NICHO Granda. Pt stable.
--- NOTE | 2018-11-18 02:04 | NUR ---
NURSE NOTES: Received report from NICHO Barraza. Patient is asleep lying semi-hall's; resting comfortably. No signs of acute distress or pain noted at this time. Arousable to verbal and tactile stimuli. Checked IV site; patent and flushed. No erythema, bleeding, or infiltration noted. Bedside commode easily accessible. Bed at lowest position, brakes on, siderails up x3. Call light within reach. Will continue to monitor.
[2018-11-18 04:00] VITALS: BP 139/61
--- NOTE | 2018-11-18 05:08 | NUR ---
NURSE NOTES: Per Veronica, respiratory therapist, patient repeatedly refused ABG draw since morning shift. Will reattempt at a later time.
--- NOTE | 2018-11-18 07:00 | History and Physical Report ---
DATE OF ADMISSION: 11/16/2018 HISTORY OF PRESENT ILLNESS: The patient is admitted from the skilled nursing for hypoxia initially. The patient was also hypoxic initially at the skilled nursing. The patient has end-stage renal disease, on hemodialysis. The patient also has been admitted for possible pneumonia versus congestion on the chest x-ray. The patient also was more confused than baseline, and also she was initially tachycardic. The patient also was complaining of as well as mild cough, nonproductive. No fever or chills. PAST MEDICAL HISTORY: End-stage renal disease, on hemodialysis. PAST SURGICAL HISTORY: Right arm fistula, right hip fracture surgery, one kidney transplant, and cholecystectomy. MEDICATIONS: , Levoxyl, gabapentin, Vicodin, Colace, aspirin, , and Protonix. ALLERGIES: No known allergies. SOCIAL HISTORY: Denies history of smoking, alcohol, or illicit drugs. FAMILY HISTORY: Noncontributory. REVIEW OF SYSTEMS: HEENT: Denies headaches. RESPIRATORY: Denies shortness of breath. Does have mild cough, nonproductive. CARDIOVASCULAR: Denies any chest pain. GI: Denies nausea, vomiting, or diarrhea. EXTREMITIES: Reports right pain. SEAM STAYER: No change in speech pattern. PHYSICAL EXAMINATION: VITAL SIGNS: Temperature is 98.6 degrees, pulse is 75, and blood pressure 147/65. HEENT: PERRLA. NECK: Supple. No lymphadenopathy. CHEST: Clear to auscultation. CARDIOVASCULAR: Regular rate and rhythm. No murmurs or extra sounds. GASTROINTESTINAL: Soft. Positive bowel sounds. No organomegaly. EXTREMITIES: 1+ edema. The patient is also edematous around the right arm fistula does not have any signs of infection at this point. Generalized weakness. LABORATORY DATA: WBC of 3.5, hemoglobin 8.8, and platelets of 98. Sodium 137, potassium 5.3, BUN of 50, creatinine 5.8, and glucose of 86. ASSESSMENT AND PLAN: Altered mental status, hypoxia, shortness of breath, rule out congestion versus pneumonia. The patient also consulted Dr. Carreon, Dr. Elkins, and Dr. Mccall for the above-mentioned diagnosis as well as for the treatment of above-mentioned diagnoses. Mitchell Doran M.D. DR: Evin JOB#: [id number] CC:
--- NOTE | 2018-11-18 07:52 | NUR ---
HAND-OFF: Report given to NICHO Gallegos. Patient is awake lying high-hall's watching TV; resting comfortably. In stable condition. Endorsed to oncoming RN regarding patient's hemodialysis procedure later today; verbalized understanding.
[2018-11-18 08:00] VITALS: BP 131/60
--- NOTE | 2018-11-18 08:07 | NUR ---
NURSE NOTES: Report received from NICHO Muñoz. Pt is lying comfortably in semi-fowlers with no sign of distress noted. A+Ox4, denies pain/SOB. IV sites are patent, intact, and saline locked. Respirations are even and unlabored on room air. Bed is at lowest position, brakes engaged, siderails x2, bed alarm on, and call light within reach. Will continue to monitor patient.
[2018-11-18 08:45] LABS: HEMOGLOBIN 8.3 G/DL (12.0-16.0); MEAN CORPUSCULAR VOLUME 105 FL (80-99); PLATELET COUNT 97 K/UL (150-450); RED BLOOD COUNT 2.58 M/UL (4.20-5.40); RED CELL DISTRIBUTION WIDTH 18.3 % (11.6-14.8); WHITE BLOOD COUNT 3.3 K/UL (4.8-10.8)
[2018-11-18] MEDS: Aspirin Baby 81mg ORAL SCH (08:45)
[2018-11-18] MEDS: Nephrovite tab (Rena-Vite) ORAL SCH (08:46)
[2018-11-18] MEDS: Docusate 100mg cap ORAL SCH ×3 (08:46→17:15)
[2018-11-18 09:10] LABS: ALANINE AMINOTRANSFERASE 13 U/L (12-78); ALBUMIN 2.9 G/DL (3.4-5.0); ALBUMIN/GLOBULIN RATIO 0.9 (1.0-2.7); ALKALINE PHOSPHATASE 1013 U/L (46-116); ANION GAP 10 mmol/L (5-15); ASPARTATE AMINO TRANSFERASE 13 U/L (15-37); BILIRUBIN,TOTAL 0.4 MG/DL (0.2-1.0); BLOOD UREA NITROGEN 66 mg/dL (7-18); CALCIUM 9.7 MG/DL (8.5-10.1); CARBON DIOXIDE 28 MMOL/L (21-32); CHLORIDE 98 MMOL/L (98-107); PHOSPHORUS 3.7 MG/DL (2.5-4.9); POTASSIUM 5.4 MMOL/L (3.5-5.1); SODIUM 136 MMOL/L (136-145)
[2018-11-18 09:30] LABS: % IRON SATURATION 64 % (15-50); IRON 67 ug/dL (50-175); TOTAL IRON BINDING CAPACITY 105 ug/dL (250-450)
--- NOTE | 2018-11-18 10:16 | Infectious Diseases Prog Note ---
Assessment/Plan Assessment/Plan A; Bronchitis likely chronic, altered mental status with hypothyroidism, pancytopenia, end-stage renal disease, hypertension, thyroid nodule Pulmonary HPN P: Observe off antibiotic Will f/u chest CT Subjective ROS Limited/Unobtainable: No Constitutional: Reports: no symptoms, other - feels better today Respiratory: Reports: no symptoms Cardiovascular: Reports: no symptoms Genitourinary: Reports: no symptoms Allergies: Coded Allergies: No Known Allergies (Unverified , 11/16/18) Objective Vital Signs Last 24 Hour Vital Signs Date Time Temp Pulse Resp B/P (MAP) Pulse Ox O2 Delivery O2 Flow Rate FiO2 11/18/18 08:00 97.1 83 20 131/60 (83) 96 11/18/18 04:00 80 11/18/18 04:00 97.7 82 19 139/61 (87) 96 11/18/18 00:00 99.0 87 18 144/59 (87) 97 11/18/18 00:00 87 11/17/18 21:00 Room Air 11/17/18 20:00 88 11/17/18 20:00 97.7 84 18 126/52 (76) 95 11/17/18 16:00 98.3 79 20 138/62 (87) 98 11/17/18 15:22 78 11/17/18 12:00 97.9 76 19 127/50 (75) 98 11/17/18 11:29 73 Height (Feet): 4 Height (Inches): 11.00 Weight (Pounds): 137 General Appearance: no acute distress HEENT: mucous membranes moist Respiratory/Chest: lungs clear Cardiovascular: normal rate Abdomen: soft, non tender Extremities: other - edema of right limbs Neurologic/Psychiatric: alert, oriented x 3, responsive Microbiology Date/Time Source Procedure Growth Status 11/16/18 17:27 Blood Blood Culture - Preliminary NO GROWTH AFTER 24 HOURS Resulted 11/16/18 17:17 Blood Blood Culture - Preliminary NO GROWTH AFTER 24 HOURS Resulted 11/16/18 18:30 Nasal Nares Influenza Types A,B Antigen (ALFA) - Final Complete Laboratory Tests Test 11/18/18 08:35 White Blood Count 3.3 K/UL (4.8-10.8) L Red Blood Count 2.58 M/UL (4.20-5.40) L Hemoglobin 8.3 G/DL (12.0-16.0) L Hematocrit 27.0 % (37.0-47.0) L Mean Corpuscular Volume 105 FL (80-99) H Mean Corpuscular Hemoglobin 32.3 PG (27.0-31.0) H Mean Corpuscular Hemoglobin Concent 30.9 G/DL (32.0-36.0) L Red Cell Distribution Width 18.3 % (11.6-14.8) H Platelet Count 97 K/UL (150-450) L Mean Platelet Volume 6.6 FL (6.5-10.1) Neutrophils (%) (Auto) % (45.0-75.0) Lymphocytes (%) (Auto) % (20.0-45.0) Monocytes (%) (Auto) % (1.0-10.0) Eosinophils (%) (Auto) % (0.0-3.0) Basophils (%) (Auto) % (0.0-2.0) Neutrophils % (Manual) Pending Lymphocytes % (Manual) Pending Platelet Estimate Pending Platelet Morphology Pending D-Dimer 4.13 mg/L FEU (0.00-0.49) H Sodium Level 136 MMOL/L (136-145) Potassium Level 5.4 MMOL/L (3.5-5.1) H Chloride Level 98 MMOL/L (98-107) Carbon Dioxide Level 28 MMOL/L (21-32) Anion Gap 10 mmol/L (5-15) Blood Urea Nitrogen 66 mg/dL (7-18) H Creatinine 7.0 MG/DL (0.55-1.30) H Estimat Glomerular Filtration Rate 6.1 mL/min (>60) Glucose Level 142 MG/DL (74-106) H Hemoglobin A1c 4.1 % (4.3-6.0) L Uric Acid 6.3 MG/DL (2.6-7.2) Calcium Level 9.7 MG/DL (8.5-10.1) Phosphorus Level 3.7 MG/DL (2.5-4.9) Magnesium Level 2.2 MG/DL (1.8-2.4) Iron Level 67 ug/dL (50-175) Total Iron Binding Capacity 105 ug/dL (250-450) L Percent Iron Saturation 64 % (15-50) H Unsaturated Iron Binding 38 ug/dL (112-346) L Total Bilirubin 0.4 MG/DL (0.2-1.0) Aspartate Amino Transf (AST/SGOT) 13 U/L (15-37) L Alanine Aminotransferase (ALT/SGPT) 13 U/L (12-78) Alkaline Phosphatase 1013 U/L (46-116) H Pro-B-Type Natriuretic Peptide 3692 pg/mL (0-125) H Total Protein 6.1 G/DL (6.4-8.2) L Albumin 2.9 G/DL (3.4-5.0) L Globulin 3.2 g/dL Albumin/Globulin Ratio 0.9 (1.0-2.7) L Current Medications Medications (Trade) Dose Ordered Sig/Claudy Route PRN Reason Start Time Stop Time Status Last Admin Dose Admin Acetaminophen (Tylenol) 650 mg Q6H PRN ORAL Mild Pain/Temp > 100.5 11/17/18 00:45 12/17/18 00:44 Acetaminophen/ Hydrocodone Bitart ([place] 5/325) 1 tab Q4H PRN ORAL For moderate to severe pain 11/17/18 00:45 11/24/18 00:44 Aspirin (ASA) 81 mg DAILY ORAL 11/17/18 09:00 12/17/18 08:59 11/17/18 09:07 Clonidine HCl (Catapres Tab) 0.1 mg Q6H PRN ORAL For High Blood Pressure 11/17/18 00:45 12/17/18 00:44 Docusate Sodium (Colace) 100 mg TID ORAL 11/17/18 18:00 12/17/18 08:59 11/18/18 08:46 Gabapentin (Neurontin) 100 mg Q8HR ORAL 11/17/18 06:00 12/17/18 05:59 11/18/18 05:39 Levothyroxine Sodium (Synthroid) 50 mcg DAILY@0630 ORAL 11/18/18 06:30 12/18/18 06:29 11/18/18 05:39 Pantoprazole (Protonix) 40 mg EVERY 12 HOURS ORAL 11/17/18 21:00 12/17/18 20:59 11/18/18 08:46 Sevelamer Carbonate (Renvela) 2,400 mg THREE TIMES A DAY ORAL 11/17/18 09:00 12/17/18 08:59 11/18/18 08:46 Vitamin B Complex/ Vit C/Folic Acid (Nephrovite) 1 tab DAILY ORAL 11/17/18 09:00 12/17/18 08:59 11/18/18 08:46 Robe Elkins MD Nov 18, 2018 10:16
--- NOTE | 2018-11-18 10:40 | NUR ---
NURSE NOTES: Made Dr. Doran aware of potassium level of 5.4. Pt is to have dialysis today; no new orders at this time.
--- NOTE | 2018-11-18 11:16 | NUR ---
HAND-OFF: Report given to NICHO Lazo. Pt is in stable condition; plan of care endorsed.
[2018-11-18 12:00] VITALS: BP 136/58
--- NOTE | 2018-11-18 13:02 | Nephrology Progress Note ---
Assessment/Plan Problem List: (1) Anemia of chronic disease (2) ESRD (end stage renal disease) (3) Hypertensive kidney disease (4) Hypothyroidism Assessment ESRD on HD M W Fr - on HD about 12 years Admitted with CP and SOB Anemia of CKD HTN RENAL transplant, right hip replacement Pneumonia / Hypoxia Hypothyroidism Plan HD today Phos binders Synthroid Subjective ROS Limited/Unobtainable: No Constitutional: Reports: malaise Objective Objective Last 24 Hour Vital Signs Date Time Temp Pulse Resp B/P (MAP) Pulse Ox O2 Delivery O2 Flow Rate FiO2 11/18/18 12:00 98.8 78 20 136/58 (84) 98 11/18/18 11:45 76 11/18/18 09:00 Room Air 11/18/18 08:00 84 11/18/18 08:00 97.1 83 20 131/60 (83) 96 11/18/18 04:00 80 11/18/18 04:00 97.7 82 19 139/61 (87) 96 11/18/18 00:00 99.0 87 18 144/59 (87) 97 11/18/18 00:00 87 11/17/18 21:00 Room Air 11/17/18 20:00 88 11/17/18 20:00 97.7 84 18 126/52 (76) 95 11/17/18 16:00 98.3 79 20 138/62 (87) 98 11/17/18 15:22 78 Intake and Output 11/17/18 11/18/18 18:59 06:59 Intake Total 720 ml Balance 720 ml Intake Oral 720 ml Laboratory Tests 11/18/18 08:35: White Blood Count 3.3L, Red Blood Count 2.58L, Hemoglobin 8.3L, Hematocrit 27.0L , Mean Corpuscular Volume 105H, Mean Corpuscular Hemoglobin 32.3H, Mean Corpuscular Hemoglobin Concent 30.9L, Red Cell Distribution Width 18.3H, Platelet Count 97L, Mean Platelet Volume 6.6, Neutrophils (%) (Auto) , Lymphocytes (%) (Auto) , Monocytes (%) (Auto) , Eosinophils (%) (Auto) , Basophils (%) (Auto) , Differential Total Cells Counted 100, Neutrophils % ( Manual) 63, Lymphocytes % (Manual) 32, Monocytes % (Manual) 4, Eosinophils % ( Manual) 1, Basophils % (Manual) 0, Band Neutrophils 0, Platelet Estimate DecreasedL, Platelet Morphology Normal, Hypochromasia 2+, Anisocytosis 1+, Macrocytosis 1+, D-Dimer 4.13H, Sodium Level 136, Potassium Level 5.4H, Chloride Level 98, Carbon Dioxide Level 28, Anion Gap 10, Blood Urea Nitrogen 66H, Creatinine 7.0H, Estimat Glomerular Filtration Rate 6.1, Glucose Level 142H , Hemoglobin A1c 4.1L, Uric Acid 6.3, Calcium Level 9.7, Phosphorus Level 3.7, Magnesium Level 2.2, Iron Level 67, Total Iron Binding Capacity 105L, Percent Iron Saturation 64H, Unsaturated Iron Binding 38L, Total Bilirubin 0.4, Aspartate Amino Transf (AST/SGOT) 13L, Alanine Aminotransferase (ALT/SGPT) 13, Alkaline Phosphatase 1013H, Pro-B-Type Natriuretic Peptide 3692H, Total Protein 6.1L, Albumin 2.9L, Globulin 3.2, Albumin/Globulin Ratio 0.9L 11/18/18 10:15: Arterial Blood pH 7.444, Arterial Blood Partial Pressure CO2 43.4, Arterial Blood Partial Pressure O2 84.4, Arterial Blood HCO3 29.1H, Arterial Blood Oxygen Saturation 95.9, Arterial Blood Base Excess 4.5H, Praful Test Positive Height (Feet): 4 Height (Inches): 11.00 Weight (Pounds): 137 General Appearance: no apparent distress Cardiovascular: normal rate Respiratory/Chest: decreased breath sounds Abdomen: soft Dexter Mccall MD Nov 18, 2018 13:02
--- NOTE | 2018-11-18 14:25 | Pulmonology Progress Note ---
Assessment/Plan Problems: (1) Hypoxemia (2) DVT (deep venous thrombosis) (3) Pulmonary hypertension (4) ESRD (end stage renal disease) (5) Altered level of consciousness (6) Anemia of chronic disease (7) Hypothyroidism Assessment/Plan ASSESSMENT: The patient is a very unfortunate 53-year-old female, a [facility] resident, with a history of end-stage renal disease, status post failed transplant, polycystic kidneys; hypertension; hypothyroidism; and hip fracture presenting with altered mental status and transient hypoxemia at the facility. PROBLEM LIST: 1. Transient hypoxemia. 2. Pulmonary hypertension. 3. R CFV recannulated DVT 4. Elevated D-dimer 5. End-stage renal disease, on dialysis. 6. History of failed renal transplant. 7. Pancytopenia with unclear etiology. 8. Altered level of consciousness. 9. Chronic interstitial changes in the lungs, likely underlying lung disease. 10. Bronchitis. 11. Hypothyroidism. 12. Known thyroid nodule. 13. Lactic acidosis, resolved. 14. Recent hip fracture. TREATMENT PLAN: 1. Optimize pulmonary hygiene/mobilize as tolerated. 2. PRN O2. 3. CT- ANGIO CHEST 4. Observe off antibiotics per Infectious Disease, though with a low threshold to start antimicrobial coverage. 5. Monitor volumes, dialysis per Renal. 6. Workup of pancytopenia per Dr. Fox. 7. DVT prophylaxis: Start Hep SQ TID 8. The patient is a Full Code. Subjective Allergies: Coded Allergies: No Known Allergies (Unverified , 11/16/18) Subjective AFVSS on RA Duplex with recan R CFV DVT, D-dimer 4 No SOB no CP no cough no wheezing no FC Plan for HD today Objective Last 24 Hour Vital Signs Date Time Temp Pulse Resp B/P (MAP) Pulse Ox O2 Delivery O2 Flow Rate FiO2 11/18/18 12:00 98.8 78 20 136/58 (84) 98 11/18/18 11:45 76 11/18/18 09:00 Room Air 11/18/18 08:00 84 11/18/18 08:00 97.1 83 20 131/60 (83) 96 11/18/18 04:00 80 11/18/18 04:00 97.7 82 19 139/61 (87) 96 11/18/18 00:00 99.0 87 18 144/59 (87) 97 11/18/18 00:00 87 1/9/19 21:00 Room Air 11/17/18 20:00 88 11/17/18 20:00 97.7 84 18 126/52 (76) 95 11/17/18 16:00 98.3 79 20 138/62 (87) 98 11/17/18 15:22 78 Intake and Output 11/17/18 11/18/18 18:59 06:59 Intake Total 720 ml Balance 720 ml Intake Oral 720 ml General Appearance: WD/WN, no acute distress HEENT: normocephalic, atraumatic, anicteric, mucous membranes moist Respiratory/Chest: chest wall non-tender, lungs clear, normal breath sounds, no respiratory distress Cardiovascular: normal peripheral pulses, normal rate, regular rhythm Abdomen: normal bowel sounds, soft, non tender, no organomegaly, non distended Extremities: no cyanosis, no clubbing, no edema Microbiology Date/Time Source Procedure Growth Status 11/16/18 17:27 Blood Blood Culture - Preliminary NO GROWTH AFTER 24 HOURS Resulted 11/16/18 17:17 Blood Blood Culture - Preliminary NO GROWTH AFTER 24 HOURS Resulted 11/16/18 18:30 Nasal Nares Influenza Types A,B Antigen (ALFA) - Final Complete Laboratory Tests 11/18/18 08:35: White Blood Count 3.3L, Red Blood Count 2.58L, Hemoglobin 8.3L, Hematocrit 27.0L , Mean Corpuscular Volume 105H, Mean Corpuscular Hemoglobin 32.3H, Mean Corpuscular Hemoglobin Concent 30.9L, Red Cell Distribution Width 18.3H, Platelet Count 97L, Mean Platelet Volume 6.6, Neutrophils (%) (Auto) , Lymphocytes (%) (Auto) , Monocytes (%) (Auto) , Eosinophils (%) (Auto) , Basophils (%) (Auto) , Differential Total Cells Counted 100, Neutrophils % ( Manual) 63, Lymphocytes % (Manual) 32, Monocytes % (Manual) 4, Eosinophils % ( Manual) 1, Basophils % (Manual) 0, Band Neutrophils 0, Platelet Estimate DecreasedL, Platelet Morphology Normal, Hypochromasia 2+, Anisocytosis 1+, Macrocytosis 1+, D-Dimer 4.13H, Sodium Level 136, Potassium Level 5.4H, Chloride Level 98, Carbon Dioxide Level 28, Anion Gap 10, Blood Urea Nitrogen 66H, Creatinine 7.0H, Estimat Glomerular Filtration Rate 6.1, Glucose Level 142H , Hemoglobin A1c 4.1L, Uric Acid 6.3, Calcium Level 9.7, Phosphorus Level 3.7, Magnesium Level 2.2, Iron Level 67, Total Iron Binding Capacity 105L, Percent Iron Saturation 64H, Unsaturated Iron Binding 38L, Total Bilirubin 0.4, Aspartate Amino Transf (AST/SGOT) 13L, Alanine Aminotransferase (ALT/SGPT) 13, Alkaline Phosphatase 1013H, Pro-B-Type Natriuretic Peptide 3692H, Total Protein 6.1L, Albumin 2.9L, Globulin 3.2, Albumin/Globulin Ratio 0.9L 11/18/18 10:15: Arterial Blood pH 7.444, Arterial Blood Partial Pressure CO2 43.4, Arterial Blood Partial Pressure O2 84.4, Arterial Blood HCO3 29.1H, Arterial Blood Oxygen Saturation 95.9, Arterial Blood Base Excess 4.5H, Praful Test Positive Current Medications Medications (Trade) Dose Ordered Sig/Claudy Route PRN Reason Start Time Stop Time Status Last Admin Dose Admin Acetaminophen (Tylenol) 650 mg Q6H PRN ORAL Mild Pain/Temp > 100.5 11/17/18 00:45 12/17/18 00:44 Acetaminophen/ Hydrocodone Bitart (Lena 5/325) 1 tab Q4H PRN ORAL For moderate to severe pain 11/17/18 00:45 11/24/18 00:44 Aspirin (ASA) 81 mg DAILY ORAL 11/17/18 09:00 12/17/18 08:59 11/17/18 09:07 Clonidine HCl (Catapres Tab) 0.1 mg Q6H PRN ORAL For High Blood Pressure 11/17/18 00:45 12/17/18 00:44 Docusate Sodium (Colace) 100 mg TID ORAL 11/17/18 18:00 12/17/18 08:59 11/18/18 13:02 Gabapentin (Neurontin) 100 mg Q8HR ORAL 11/17/18 06:00 12/17/18 05:59 11/18/18 05:39 Heparin Sodium (Porcine) (Heparin 5000 units/ml) 5,000 units EVERY 8 HOURS SUBQ 11/18/18 22:00 12/18/18 21:59 UNV Iopamidol (Isovue-370 150ml) 150 ml NOW PRN INJ Radiology Procedure 11/18/18 14:30 11/20/18 14:18 UNV Levothyroxine Sodium (Synthroid) 50 mcg DAILY@0630 ORAL 11/18/18 06:30 12/18/18 06:29 11/18/18 05:39 Pantoprazole (Protonix) 40 mg EVERY 12 HOURS ORAL 11/17/18 21:00 12/17/18 20:59 11/18/18 08:46 Sevelamer Carbonate (Renvela) 2,400 mg THREE TIMES A DAY ORAL 11/17/18 09:00 12/17/18 08:59 11/18/18 13:02 Vitamin B Complex/ Vit C/Folic Acid (Nephrovite) 1 tab DAILY ORAL 11/17/18 09:00 12/17/18 08:59 11/18/18 08:46 Adalberto Carreon MD Nov 18, 2018 14:25
[2018-11-18] MEDS ORDERED: Isovue-370 150ml vial INJ PRN (14:30)
--- NOTE | 2018-11-18 15:15 | NUR ---
NURSE NOTES: Pt received from NICHO Lazo alert and oriented x3, primarily Romanian-speaking. IV site asymptomatic and patent, on saline lock. Bed in lowest position, call light and belongings within reach.
[2018-11-18 16:00] VITALS: BP 143/64
--- NOTE | 2018-11-18 16:02 | Diagnostic Imaging Report ---
ndication: Chest pain Technique: IV administration nonionic contrast. Spiral acquisitions obtained from the lung bases to the lung apices. Multiplanar and 3-D reconstructions were generated. Total dose length product 638.16 mGycm. CTDIvol(s) 22.91 mGy. Dose reduction achieved using automated exposure control Comparison: none Findings: The pulmonary arteries are well opacified. No intraluminal filling defects or other findings to suggest acute pulmonary embolus are evident. Normal caliber pulmonary arteries. No evidence of isolated right ventricular dilatation. No evidence of thoracic aortic aneurysm or dissection. Classic normal branching anatomy of the great neck vessels, without evidence of significant abnormality. Patent and nonstenotic proximal abdominal visceral vessels. The left subclavian and innominate veins are patent, although there is suggestion of some narrowing of the left innominate vein at its origin. The superior vena cava is patent. However, there is evidence of occlusion of the right innominate vein. There are extensive mediastinal and chest wall collaterals as result, with filling of the azygos vein from the intercostal collaterals. There are small bilateral pleural effusions, right greater than left. There is compressive atelectasis of the posterior lower lobes bilaterally. In addition, platelike atelectatic changes of the inferior right upper lobe and both lower lobes are noted, as well as some groundglass opacity. No mass or dense consolidation demonstrated. The heart is borderline enlarged, with a left ventricular hypertrophy configuration. No pericardial effusion The mediastinum is diffusely edematous, as is the subcutaneous fat. No definite mediastinal or hilar mass or adenopathy demonstrated. A 17 mm mass comes off of the lower pole of the right thyroid lobe. This is somewhat heterogeneous. The trachea is unremarkable. The esophagus demonstrates a small sliding-type hiatal hernia. No axillary or chest wall mass or adenopathy. However, there is asymmetry in the amount of bilateral chest wall soft tissue, much more than on the right than on the left Mild generalized osteosclerosis likely indicates renal osteodystrophy. A few small osteolytic lesions are seen in T12 as well as within a few upper thoracic vertebral bodies. Included upper abdominal anatomy demonstrates ascites fluid, as well as diffuse edema of the mesenteric fat. The liver contains innumerable cysts, as well as multiple subcentimeter low-attenuation lesions which are too small to characterize. The left hepatic lobe is very ill-defined, contains in addition to innumerable cysts, innumerable rim calcified lesions which are probably rim calcified cysts but are poorly visualized. Impression: No evidence of acute pulmonary embolus or other acute thoracic vascular pathology Evidence of anasarca, with small bilateral pleural effusions, ascites fluid, and edema of the mediastinal, abdominal, and subcutaneous fat Upper extremity venoocclusive disease, with right innominate venous occlusion and extensive chest wall collaterals. Faint areas of groundglass opacity within both lower lungs. These may be due to atelectatic changes, or could indicate a component of mild pulmonary edema Mild cardiomegaly with left ventricular hypertrophy configuration 17 mm right lower pole thyroid mass. Further evaluation with ultrasound recommended Diffuse osteoporosis, probably reflecting renal osteodystrophy. Multiple osteolytic lesions, predominantly in T12 but also seen elsewhere, could represent brown tumors that neoplastic etiologies are not completely excludable Innumerable hepatic cysts as well as subcentimeter low-attenuation hepatic lesions which probably represent benign simple cysts. Asymmetric chest wall soft tissue. Correlate with clinical findings and with any prior surgical history Multiple rim calcified lesions, predominantly in the left hepatic lobe, ill-defined and not well characterized. These may represent postinflammatory lesions, but the possibility of malignant calcified lesions should also be considered. Recommend further evaluation with ultrasound to better characterize Other findings as noted, including small hiatal hernia The CT scanner at [facility] is accredited by the [employer] and the scans are performed using protocols designed to limit radiation exposure to as low as reasonably achievable to attain images of sufficient resolution adequate for diagnostic evaluation.
[2018-11-18 20:00] VITALS: BP 105/52
--- NOTE | 2018-11-18 21:10 | General Progress Note ---
Assessment/Plan Problem List: (1) ESRD (end stage renal disease) ICD Codes: N18.6 - End stage renal disease SNOMED: 31776146 (2) Anemia of chronic disease ICD Codes: D63.8 - Anemia in other chronic diseases classified elsewhere SNOMED: 759745495 (3) Hypertensive kidney disease ICD Codes: I12.9 - Hypertensive chronic kidney disease with stage 1 through stage 4 chronic kidney disease, or unspecified chronic kidney disease SNOMED: 51436287 (4) Hypothyroidism ICD Codes: E03.9 - Hypothyroidism, unspecified SNOMED: 53988831 (5) Pulmonary hypertension ICD Codes: I27.20 - Pulmonary hypertension, unspecified SNOMED: 51703954 (6) Altered level of consciousness ICD Codes: R40.4 - Transient alteration of awareness SNOMED: 8294630 (7) Hypoxemia ICD Codes: R09.02 - Hypoxemia SNOMED: 767314350 Status: progressing Assessment/Plan esrd on hd anemia hypoxia improved anemia of chronic kidney disease no bleeding htn Subjective ROS Limited/Unobtainable: Yes Allergies: Coded Allergies: No Known Allergies (Unverified , 11/16/18) Objective Last 24 Hour Vital Signs Date Time Temp Pulse Resp B/P (MAP) Pulse Ox O2 Delivery O2 Flow Rate FiO2 11/18/18 20:00 97.5 94 18 105/52 (69) 95 11/18/18 17:03 Room Air 11/18/18 17:01 Room Air 11/18/18 16:00 98.2 82 21 143/64 (90) 99 11/18/18 16:00 81 11/18/18 12:00 98.8 78 20 136/58 (84) 98 11/18/18 11:45 76 11/18/18 09:00 Room Air 11/18/18 08:00 84 11/18/18 08:00 97.1 83 20 131/60 (83) 96 11/18/18 04:00 80 11/18/18 04:00 97.7 82 19 139/61 (87) 96 11/18/18 00:00 99.0 87 18 144/59 (87) 97 11/18/18 00:00 87 Intake and Output 11/17/18 11/18/18 19:00 07:00 Intake Total 720 ml Balance 720 ml Intake Oral 720 ml Laboratory Tests 11/18/18 08:35: White Blood Count 3.3L, Red Blood Count 2.58L, Hemoglobin 8.3L, Hematocrit 27.0L , Mean Corpuscular Volume 105H, Mean Corpuscular Hemoglobin 32.3H, Mean Corpuscular Hemoglobin Concent 30.9L, Red Cell Distribution Width 18.3H, Platelet Count 97L, Mean Platelet Volume 6.6, Neutrophils (%) (Auto) , Lymphocytes (%) (Auto) , Monocytes (%) (Auto) , Eosinophils (%) (Auto) , Basophils (%) (Auto) , Differential Total Cells Counted 100, Neutrophils % ( Manual) 63, Lymphocytes % (Manual) 32, Monocytes % (Manual) 4, Eosinophils % ( Manual) 1, Basophils % (Manual) 0, Band Neutrophils 0, Platelet Estimate DecreasedL, Platelet Morphology Normal, Hypochromasia 2+, Anisocytosis 1+, Macrocytosis 1+, D-Dimer 4.13H, Sodium Level 136, Potassium Level 5.4H, Chloride Level 98, Carbon Dioxide Level 28, Anion Gap 10, Blood Urea Nitrogen 66H, Creatinine 7.0H, Estimat Glomerular Filtration Rate 6.1, Glucose Level 142H , Hemoglobin A1c 4.1L, Uric Acid 6.3, Calcium Level 9.7, Phosphorus Level 3.7, Magnesium Level 2.2, Iron Level 67, Total Iron Binding Capacity 105L, Percent Iron Saturation 64H, Unsaturated Iron Binding 38L, Total Bilirubin 0.4, Aspartate Amino Transf (AST/SGOT) 13L, Alanine Aminotransferase (ALT/SGPT) 13, Alkaline Phosphatase 1013H, Pro-B-Type Natriuretic Peptide 3692H, Total Protein 6.1L, Albumin 2.9L, Globulin 3.2, Albumin/Globulin Ratio 0.9L 11/18/18 10:15: Arterial Blood pH 7.444, Arterial Blood Partial Pressure CO2 43.4, Arterial Blood Partial Pressure O2 84.4, Arterial Blood HCO3 29.1H, Arterial Blood Oxygen Saturation 95.9, Arterial Blood Base Excess 4.5H, Praful Test Positive Height (Feet): 4 Height (Inches): 11.00 Weight (Pounds): 137 Neck: supple Cardiovascular: normal rate Respiratory/Chest: lungs clear Abdomen: soft Mitchell Doran MD Nov 18, 2018 21:10
--- NOTE | 2018-11-18 21:43 | General Progress Note ---
Assessment/Plan Assessment/Plan Assessment and Recs: # Pancytopenia cause is yet unknown, patient is a very poor historian, and no prior labs noted in the emr or chart --> begin w/u with iron panel, hepatitis, hiv, us abdomen --> meds reviewed, no culprits noted --> if above doesn't gonzalez out, consider to get a bone marrow biopsy --> neupogen if anc <1000, hgb >7, plt >20k # Altered level of consciousness -- could be related to pna --> abx have been started # Healthcare-associated pneumonia # ESRD nephro consulted # Lactic acidosis --> lactate downtrended # Hypoxic today due to pna # Dehydration, electrolyte disturbance Time of note does not reflect time of encounter Greatly appreciate consultation Subjective Constitutional: Denies: no symptoms, chills, diaphoresis, fever, malaise, weakness, other HEENT: Denies: no symptoms, eye pain, blurred vision, tearing, double vision, ear pain, ear discharge, nose pain, nose congestion, throat pain, throat swelling, mouth pain, mouth swelling, other Cardiovascular: Denies: no symptoms, chest pain, edema, irregular heart rate, lightheadedness, palpitations, syncope, other Respiratory: Denies: no symptoms, cough, orthopnea, shortness of breath, SOB with excertion, SOB at rest, sputum, stridor, wheezing, other Gastrointestinal/Abdominal: Denies: no symptoms, abdomen distended, abdominal pain, black stools, tarry stools, blood in stool, constipated, diarrhea, difficulty swallowing, nausea, poor appetite, poor fluid intake, rectal bleeding , vomiting, other Genitourinary: Denies: no symptoms, burning, discharge, frequency, flank pain, hematuria, incontinence, pain, urgency, other Neurologic/Psychiatric: Denies: no symptoms, anxiety, depressed, emotional problems, headache, numbness, paresthesia, pre-existing deficit, seizure, tingling, tremors, weakness, other Endocrine: Denies: no symptoms, excessive sweating, flushing, intolerance to cold, intolerance to heat, increased hunger, increased thirst, increased urine, unexplained weight gain, unexplained weight loss, other Hematologic/Lymphatic: Denies: no symptoms, anemia, easy bleeding, easy bruising, other Allergies: Coded Allergies: No Known Allergies (Unverified , 11/16/18) Subjective 11/18: Pt is seen by bedside, awake and comfortable, no fevers, HD today, cbc reviewed. plt 97 Objective Last 24 Hour Vital Signs Date Time Temp Pulse Resp B/P (MAP) Pulse Ox O2 Delivery O2 Flow Rate FiO2 11/18/18 20:00 97.5 94 18 105/52 (69) 95 11/18/18 17:03 Room Air 11/18/18 17:01 Room Air 11/18/18 16:00 98.2 82 21 143/64 (90) 99 11/18/18 16:00 81 11/18/18 12:00 98.8 78 20 136/58 (84) 98 11/18/18 11:45 76 11/18/18 09:00 Room Air 11/18/18 08:00 84 11/18/18 08:00 97.1 83 20 131/60 (83) 96 11/18/18 04:00 80 11/18/18 04:00 97.7 82 19 139/61 (87) 96 11/18/18 00:00 99.0 87 18 144/59 (87) 97 11/18/18 00:00 87 Intake and Output 11/17/18 11/18/18 19:00 07:00 Intake Total 720 ml Balance 720 ml Intake Oral 720 ml Laboratory Tests 11/18/18 08:35: White Blood Count 3.3L, Red Blood Count 2.58L, Hemoglobin 8.3L, Hematocrit 27.0L , Mean Corpuscular Volume 105H, Mean Corpuscular Hemoglobin 32.3H, Mean Corpuscular Hemoglobin Concent 30.9L, Red Cell Distribution Width 18.3H, Platelet Count 97L, Mean Platelet Volume 6.6, Neutrophils (%) (Auto) , Lymphocytes (%) (Auto) , Monocytes (%) (Auto) , Eosinophils (%) (Auto) , Basophils (%) (Auto) , Differential Total Cells Counted 100, Neutrophils % ( Manual) 63, Lymphocytes % (Manual) 32, Monocytes % (Manual) 4, Eosinophils % ( Manual) 1, Basophils % (Manual) 0, Band Neutrophils 0, Platelet Estimate DecreasedL, Platelet Morphology Normal, Hypochromasia 2+, Anisocytosis 1+, Macrocytosis 1+, D-Dimer 4.13H, Sodium Level 136, Potassium Level 5.4H, Chloride Level 98, Carbon Dioxide Level 28, Anion Gap 10, Blood Urea Nitrogen 66H, Creatinine 7.0H, Estimat Glomerular Filtration Rate 6.1, Glucose Level 142H , Hemoglobin A1c 4.1L, Uric Acid 6.3, Calcium Level 9.7, Phosphorus Level 3.7, Magnesium Level 2.2, Iron Level 67, Total Iron Binding Capacity 105L, Percent Iron Saturation 64H, Unsaturated Iron Binding 38L, Total Bilirubin 0.4, Aspartate Amino Transf (AST/SGOT) 13L, Alanine Aminotransferase (ALT/SGPT) 13, Alkaline Phosphatase 1013H, Pro-B-Type Natriuretic Peptide 3692H, Total Protein 6.1L, Albumin 2.9L, Globulin 3.2, Albumin/Globulin Ratio 0.9L 11/18/18 10:15: Arterial Blood pH 7.444, Arterial Blood Partial Pressure CO2 43.4, Arterial Blood Partial Pressure O2 84.4, Arterial Blood HCO3 29.1H, Arterial Blood Oxygen Saturation 95.9, Arterial Blood Base Excess 4.5H, Praful Test Positive Height (Feet): 4 Height (Inches): 11.00 Weight (Pounds): 137 Objective Physical Exam General Appearance: A+O x2, NAD HEENT: normocephalic, atraumatic Neck: non-tender, normal alignment Respiratory/Chest: on 2 Lnc coarse breath sounds on the right side Cardiovascular/Chest: normal peripheral pulses, normal rate Abdomen: normal bowel sounds, non tender Extremities: Limited range of motion of right hip secondary to pain, hip replacement Endy Fox MD Nov 18, 2018 21:43
[2018-11-18] MEDS ORDERED: Heparin 5000 units/ml inj SUBQ SCH (22:00)
[2018-11-19] VITALS: BP 126/54
--- NOTE | 2018-11-19 01:36 | NUR ---
NURSE NOTES: RN clarified Heparin parameters with Dr. Fox. Per Dr. Fox, hold Heparin for platelet level below 50.
[2018-11-19 04:00] VITALS: BP 130/61
[2018-11-19] MEDS: Heparin 5000 units/ml inj SUBQ SCH ×3 (06:11→21:41)
--- NOTE | 2018-11-19 07:57 | NUR ---
NURSE NOTES: Received report from NICHO Jimenez. Patient in bed sitting, resting. No active s/s cardiac, respiratory distress noticed at this time. Denies pain at this time. Patient SR with HR 83, AO x4. IV site asymptomatic , intact, patent. Endorsed patient got HD 11/18 2L out, OB stool collection. Bed in lowest position, side rails up x2, call light within reach. Will continue to monitor.
[2018-11-19 08:00] VITALS: BP 114/55
--- NOTE | 2018-11-19 08:12 | NUR ---
HAND-OFF: Report given to NICHO Schuler.
[2018-11-19] MEDS: Aspirin Baby 81mg ORAL SCH (09:00)
[2018-11-19] MEDS: Docusate 100mg cap ORAL SCH ×3 (09:03→18:22)
[2018-11-19] MEDS: Nephrovite tab (Rena-Vite) ORAL SCH (09:03)
--- NOTE | 2018-11-19 11:03 | NUR ---
RD ASSESSMENT & RECOMMENDATIONS SEE CARE ACTIVITY FOR COMPLETE ASSESSMENT DAILY ESTIMATED NEEDS: Needs based on ESRD, HD/ 48.75kg abw 25-30 kcals/kg 7364-0542 total kcals 1.2-1.8 g protein/kg 59-88 g total protein 20-22 mL/kg 980-1078 total fluid mLs NUTRITION DIAGNOSIS: Altered nutrition related lab values R/T ESRD dx as evidenced by elev K (5.4), elev creat (7.0), elev BNP (3692). CURRENT DIET:RENAL PO DIET RECOMMENDATIONS: RENAL, texture as tolerated ADDITIONAL RECOMMENDATIONS: * Standing wt or calibrated bedscale wt post HD for accurate dry CBW * Monitor renal fxn and lytes * High prot snacks BID in b/w meals
--- NOTE | 2018-11-19 11:24 | NUR ---
CASE MANAGEMENT:REVIEW 11/19/18 SI: HYPOXEMIA. ESRD. ANEMIA 98.1 90 19 114/55 98% ON RA IS: PROCRIT SQ MWF HEPARIN SQ Q8HRS ASA PO QD NEURONTIN PO Q8 : TELEMETRY STATUS DCP: [facility]
[2018-11-19 12:00] VITALS: BP 117/61
--- NOTE | 2018-11-19 12:22 | General Progress Note ---
Assessment/Plan Assessment/Plan Assessment and Recs: # Pancytopenia cause is yet unknown, patient is a very poor historian, and no prior labs noted in the emr or chart --> iron panel reviewed, hiv neg, hep neg --> meds reviewed, no culprits noted --> will dw path re bone marrow biospy --> neupogen if anc <1000, hgb >7, plt >20k --> us of the abdomen is pending # Right leg dvt that has recanalized, no evidence of swelling --> given chronic and recannalized, does not need anticoag # Multiple osteolytic lesions, predominantly in T12 but also seen elsewhere, could represent brown tumors that neoplastic etiologies are not completely excludable --> consider a bone marrow biopsy given consistent pancytopenia # Altered level of consciousness -- could be related to pna --> abx have been started # Healthcare-associated pneumonia # ESRD nephro consulted --> Hd 3x a week # Lactic acidosis --> lactate downtrended # Hypoxic today due to pna # Dehydration, electrolyte disturbance Time of note does not reflect time of encounter Greatly appreciate consultation Subjective Date patient seen: Nov 19, 2018 Constitutional: Denies: no symptoms, chills, diaphoresis, fever, malaise, weakness, other HEENT: Denies: no symptoms, eye pain, blurred vision, tearing, double vision, ear pain, ear discharge, nose pain, nose congestion, throat pain, throat swelling, mouth pain, mouth swelling, other Respiratory: Denies: no symptoms, cough, orthopnea, shortness of breath, SOB with excertion, SOB at rest, sputum, stridor, wheezing, other Gastrointestinal/Abdominal: Denies: no symptoms, abdomen distended, abdominal pain, black stools, tarry stools, blood in stool, constipated, diarrhea, difficulty swallowing, nausea, poor appetite, poor fluid intake, rectal bleeding , vomiting, other Genitourinary: Denies: no symptoms, burning, discharge, frequency, flank pain, hematuria, incontinence, pain, urgency, other Neurologic/Psychiatric: Denies: no symptoms, anxiety, depressed, emotional problems, headache, numbness, paresthesia, pre-existing deficit, seizure, tingling, tremors, weakness, other Allergies: Coded Allergies: No Known Allergies (Unverified , 11/16/18) Subjective 11/18: Pt is seen by bedside, awake and comfortable, no fevers, HD today, cbc reviewed. plt 97 11/19: no major events, HD completed yesterday without issue, 2L were removed, us abd pending Objective Last 24 Hour Vital Signs Date Time Temp Pulse Resp B/P (MAP) Pulse Ox O2 Delivery O2 Flow Rate FiO2 11/19/18 09:00 Room Air 11/19/18 08:00 84 11/19/18 08:00 98.1 90 19 114/55 (74) 98 11/19/18 04:00 97.4 77 19 130/61 (84) 98 11/19/18 04:00 83 11/19/18 00:00 89 11/19/18 00:00 98.1 87 18 126/54 (78) 98 11/18/18 21:00 Room Air 11/18/18 20:00 93 11/18/18 20:00 97.5 94 18 105/52 (69) 95 11/18/18 17:03 Room Air 11/18/18 17:01 Room Air 11/18/18 16:00 98.2 82 21 143/64 (90) 99 11/18/18 16:00 81 Intake and Output 11/18/18 11/19/18 19:00 07:00 Intake Total 620 ml 210 ml Output Total 2000 ml Balance -1380 ml 210 ml Intake Oral 620 ml 210 ml Output Hemodialysis UF 2000 ml # Voids 1 # Bowel Movements 1 Height (Feet): 4 Height (Inches): 11.00 Weight (Pounds): 135 Objective Physical Exam General Appearance: A+O x2, NAD HEENT: normocephalic, atraumatic Neck: non-tender, normal alignment Respiratory/Chest: on 2 Lnc coarse Cardiovascular/Chest: normal peripheral pulses, normal rate Abdomen: normal bowel sounds, non tender Extremities: Limited range of motion of right hip secondary to pain, hip replacement Endy Fox MD Nov 19, 2018 12:22
--- NOTE | 2018-11-19 13:36 | Infectious Diseases Prog Note ---
Assessment/Plan Assessment/Plan A; Bronchitis likely chronic, altered mental status with hypothyroidism, pancytopenia, end-stage renal disease, hypertension, thyroid nodule Pulmonary HPN P: Observe off antibiotic Subjective ROS Limited/Unobtainable: No Respiratory: Reports: no symptoms Cardiovascular: Reports: no symptoms Gastrointestinal/Abdominal: Reports: no symptoms Genitourinary: Reports: no symptoms Allergies: Coded Allergies: No Known Allergies (Unverified , 11/16/18) Objective Vital Signs Last 24 Hour Vital Signs Date Time Temp Pulse Resp B/P (MAP) Pulse Ox O2 Delivery O2 Flow Rate FiO2 11/19/18 09:00 Room Air 11/19/18 08:00 84 11/19/18 08:00 98.1 90 19 114/55 (74) 98 11/19/18 04:00 97.4 77 19 130/61 (84) 98 11/19/18 04:00 83 11/19/18 00:00 89 11/19/18 00:00 98.1 87 18 126/54 (78) 98 11/18/18 21:00 Room Air 11/18/18 20:00 93 11/18/18 20:00 97.5 94 18 105/52 (69) 95 11/18/18 17:03 Room Air 11/18/18 17:01 Room Air 11/18/18 16:00 98.2 82 21 143/64 (90) 99 11/18/18 16:00 81 Height (Feet): 4 Height (Inches): 11.00 Weight (Pounds): 135 General Appearance: no acute distress HEENT: mucous membranes moist Respiratory/Chest: lungs clear Cardiovascular: normal rate Abdomen: soft, non tender Extremities: no edema Neurologic/Psychiatric: alert, responsive Microbiology Date/Time Source Procedure Growth Status 11/16/18 17:27 Blood Blood Culture - Preliminary NO GROWTH AFTER 48 HOURS Resulted 11/16/18 17:17 Blood Blood Culture - Preliminary NO GROWTH AFTER 48 HOURS Resulted 11/16/18 23:24 Nasal Nares MRSA Culture - Final NO METHICILLIN RESISTANT STAPH AUREUS... Complete 11/16/18 18:30 Nasal Nares Influenza Types A,B Antigen (ALFA) - Final Complete 11/16/18 23:24 Rectum - Final NO CARBAPENEM-RESISTANT ENTEROBACTERI... Complete 11/16/18 23:24 Rectum VRE Culture - Final NO VANCOMYCIN RESISTANT ENTEROCOCCUS ... Complete Current Medications Medications (Trade) Dose Ordered Sig/Claudy Route PRN Reason Start Time Stop Time Status Last Admin Dose Admin Acetaminophen (Tylenol) 650 mg Q6H PRN ORAL Mild Pain/Temp > 100.5 11/17/18 00:45 12/17/18 00:44 Acetaminophen/ Hydrocodone Bitart ([place] 5/325) 1 tab Q4H PRN ORAL For moderate to severe pain 11/17/18 00:45 11/24/18 00:44 Aspirin (ASA) 81 mg DAILY ORAL 11/17/18 09:00 12/17/18 08:59 11/17/18 09:07 Clonidine HCl (Catapres Tab) 0.1 mg Q6H PRN ORAL For High Blood Pressure 11/17/18 00:45 12/17/18 00:44 Docusate Sodium (Colace) 100 mg TID ORAL 11/17/18 18:00 12/17/18 08:59 11/19/18 13:13 Epoetin Sanya (Procrit (for ESRD on dialysis)) 10,000 units THU-THU-THU SUBQ 11/19/18 21:00 12/19/18 20:59 Gabapentin (Neurontin) 100 mg Q8HR ORAL 11/17/18 06:00 12/17/18 05:59 11/19/18 13:13 Heparin Sodium (Porcine) (Heparin 5000 units/ml) 5,000 units EVERY 8 HOURS SUBQ 11/19/18 06:00 12/18/18 21:59 11/19/18 13:14 Iopamidol (Isovue-370 150ml) 150 ml NOW PRN INJ Radiology Procedure 11/18/18 14:30 11/20/18 14:18 Levothyroxine Sodium (Synthroid) 50 mcg DAILY@0630 ORAL 11/18/18 06:30 12/18/18 06:29 11/19/18 06:07 Pantoprazole (Protonix) 40 mg EVERY 12 HOURS ORAL 11/17/18 21:00 12/17/18 20:59 11/19/18 09:03 Sevelamer Carbonate (Renvela) 2,400 mg THREE TIMES A DAY ORAL 11/17/18 09:00 12/17/18 08:59 11/19/18 13:13 Vitamin B Complex/ Vit C/Folic Acid (Nephrovite) 1 tab DAILY ORAL 11/17/18 09:00 12/17/18 08:59 11/19/18 09:03 Robe Elkins MD Nov 19, 2018 13:36
--- NOTE | 2018-11-19 14:41 | Nephrology Progress Note ---
Assessment/Plan Problem List: (1) Anemia of chronic disease (2) ESRD (end stage renal disease) (3) Hypertensive kidney disease (4) Hypothyroidism Assessment ESRD on HD M W Fr - on HD about 12 years Admitted with CP and SOB Anemia of CKD HTN RENAL transplant, right hip replacement Pneumonia / Hypoxia Hypothyroidism Plan HD 11/18 and 11/20 Phos binders Synthroid per consultants Subjective ROS Limited/Unobtainable: No Constitutional: Reports: malaise Objective Objective Last 24 Hour Vital Signs Date Time Temp Pulse Resp B/P (MAP) Pulse Ox O2 Delivery O2 Flow Rate FiO2 11/19/18 12:00 98.1 81 16 117/61 (79) 95 11/19/18 09:00 Room Air 11/19/18 08:00 84 11/19/18 08:00 98.1 90 19 114/55 (74) 98 11/19/18 04:00 97.4 77 19 130/61 (84) 98 11/19/18 04:00 83 11/19/18 00:00 89 11/19/18 00:00 98.1 87 18 126/54 (78) 98 11/18/18 21:00 Room Air 11/18/18 20:00 93 11/18/18 20:00 97.5 94 18 105/52 (69) 95 11/18/18 17:03 Room Air 11/18/18 17:01 Room Air 11/18/18 16:00 98.2 82 21 143/64 (90) 99 11/18/18 16:00 81 Intake and Output 11/18/18 11/19/18 19:00 07:00 Intake Total 620 ml 210 ml Output Total 2000 ml Balance -1380 ml 210 ml Intake Oral 620 ml 210 ml Output Hemodialysis UF 2000 ml # Voids 1 # Bowel Movements 1 Height (Feet): 4 Height (Inches): 11.00 Weight (Pounds): 135 General Appearance: no apparent distress Objective no change Dexter Mccall MD Nov 19, 2018 14:41
--- NOTE | 2018-11-19 15:07 | NUR ---
NURSE NOTES: Dr. Gutiérrez request to hold heparin prior to BM biopsy. Per. Dr. Ruddy gar heparing sat. night. Order noted, entered, and carried out.
--- NOTE | 2018-11-19 15:32 | Pulmonology Progress Note ---
Assessment/Plan Problems: (1) Hypoxemia (2) DVT (deep venous thrombosis) (3) Pulmonary hypertension (4) ESRD (end stage renal disease) (5) Altered level of consciousness (6) Anemia of chronic disease (7) Hypothyroidism (8) Thyroid mass (9) Bone lesion (10) Liver lesion Assessment/Plan ASSESSMENT: The patient is a very unfortunate 53-year-old female, a [place] resident, with a history of end-stage renal disease, status post failed transplant, polycystic kidneys; hypertension; hypothyroidism; and hip fracture presenting with altered mental status and transient hypoxemia at the facility. PROBLEM LIST: 1. Transient hypoxemia. 2. Pulmonary hypertension. 3. R CFV recannulated DVT 4. Elevated D-dimer S/P negative CT-A 5. End-stage renal disease, on dialysis. 6. History of failed renal transplant. 7. Pancytopenia with unclear etiology S/P neg prelim w/u, BMBx pending 8. Altered level of consciousness. 9. Chronic interstitial changes in the lungs, likely underlying lung disease. 10. Bronchitis. 11. Hypothyroidism. 12. Known thyroid nodule. 13. Lactic acidosis, resolved. 14. Recent hip fracture. 15. Thyroid mass 16. Multiple hepatic lesions 17. Bony lesions seen on CT chest TREATMENT PLAN: 1. Optimize pulmonary hygiene/mobilize as tolerated. 2. PRN O2. 3. Thyroid US 4. Abd US 5. GI eval 6. Bone scan 7. F/U heme-onc recs RE: pancytopenia, F/U BM Bx 8. Observe off antibiotics per Infectious Disease, though with a low threshold to start antimicrobial coverage. 9. Monitor volumes, dialysis per Renal. 10. DVT prophylaxis: Start Hep SQ TID 11. The patient is a Full Code. Subjective Allergies: Coded Allergies: No Known Allergies (Unverified , 11/16/18) Subjective AFVSS on RA CT-A neg for PE but scattered GGO's + thyroid mass + bony lesions + liver lesions BMBx ordered by heme onc No SOB no CP no cough no wheezing no FC Objective Last 24 Hour Vital Signs Date Time Temp Pulse Resp B/P (MAP) Pulse Ox O2 Delivery O2 Flow Rate FiO2 11/19/18 12:00 98.1 81 16 117/61 (79) 95 11/19/18 09:00 Room Air 11/19/18 08:00 84 11/19/18 08:00 98.1 90 19 114/55 (74) 98 11/19/18 04:00 97.4 77 19 130/61 (84) 98 11/19/18 04:00 83 11/19/18 00:00 89 11/19/18 00:00 98.1 87 18 126/54 (78) 98 11/18/18 21:00 Room Air 11/18/18 20:00 93 11/18/18 20:00 97.5 94 18 105/52 (69) 95 11/18/18 17:03 Room Air 11/18/18 17:01 Room Air 11/18/18 16:00 98.2 82 21 143/64 (90) 99 11/18/18 16:00 81 Intake and Output 11/18/18 11/19/18 18:59 06:59 Intake Total 620 ml 210 ml Output Total 2000 ml Balance -1380 ml 210 ml Intake Oral 620 ml 210 ml Output Hemodialysis UF 2000 ml # Voids 1 # Bowel Movements 1 General Appearance: WD/WN, no acute distress HEENT: normocephalic, atraumatic, anicteric, mucous membranes moist Respiratory/Chest: chest wall non-tender, lungs clear, normal breath sounds, no respiratory distress, no accessory muscle use Cardiovascular: normal peripheral pulses, normal rate, regular rhythm Abdomen: normal bowel sounds, soft, non tender, no organomegaly, non distended , no mass Extremities: no cyanosis, no clubbing, other - trace HOLLIE Microbiology Date/Time Source Procedure Growth Status 11/16/18 17:27 Blood Blood Culture - Preliminary NO GROWTH AFTER 48 HOURS Resulted 11/16/18 17:17 Blood Blood Culture - Preliminary NO GROWTH AFTER 48 HOURS Resulted 11/16/18 23:24 Nasal Nares MRSA Culture - Final NO METHICILLIN RESISTANT STAPH AUREUS... Complete 11/16/18 18:30 Nasal Nares Influenza Types A,B Antigen (ALFA) - Final Complete 11/16/18 23:24 Rectum - Final NO CARBAPENEM-RESISTANT ENTEROBACTERI... Complete 11/16/18 23:24 Rectum VRE Culture - Final NO VANCOMYCIN RESISTANT ENTEROCOCCUS ... Complete Current Medications Medications (Trade) Dose Ordered Sig/Claudy Route PRN Reason Start Time Stop Time Status Last Admin Dose Admin Acetaminophen (Tylenol) 650 mg Q6H PRN ORAL Mild Pain/Temp > 100.5 11/17/18 00:45 12/17/18 00:44 Acetaminophen/ Hydrocodone Bitart ([place] 5/325) 1 tab Q4H PRN ORAL For moderate to severe pain 11/17/18 00:45 11/24/18 00:44 Aspirin (ASA) 81 mg DAILY ORAL 11/17/18 09:00 12/17/18 08:59 11/17/18 09:07 Clonidine HCl (Catapres Tab) 0.1 mg Q6H PRN ORAL For High Blood Pressure 11/17/18 00:45 12/17/18 00:44 Docusate Sodium (Colace) 100 mg TID ORAL 11/17/18 18:00 12/17/18 08:59 11/19/18 13:13 Epoetin Sanya (Procrit (for ESRD on dialysis)) 10,000 units THU-THU-THU SUBQ 11/19/18 21:00 12/19/18 20:59 Gabapentin (Neurontin) 100 mg Q8HR ORAL 11/17/18 06:00 12/17/18 05:59 11/19/18 13:13 Heparin Sodium (Porcine) (Heparin 5000 units/ml) 5,000 units EVERY 8 HOURS SUBQ 11/19/18 06:00 12/18/18 21:59 11/19/18 13:14 Iopamidol (Isovue-370 150ml) 150 ml NOW PRN INJ Radiology Procedure 11/18/18 14:30 11/20/18 14:18 Levothyroxine Sodium (Synthroid) 50 mcg DAILY@0630 ORAL 11/18/18 06:30 12/18/18 06:29 11/19/18 06:07 Pantoprazole (Protonix) 40 mg EVERY 12 HOURS ORAL 11/17/18 21:00 12/17/18 20:59 11/19/18 09:03 Sevelamer Carbonate (Renvela) 2,400 mg THREE TIMES A DAY ORAL 11/17/18 09:00 12/17/18 08:59 11/19/18 13:13 Vitamin B Complex/ Vit C/Folic Acid (Nephrovite) 1 tab DAILY ORAL 11/17/18 09:00 12/17/18 08:59 11/19/18 09:03 Adalberto Carreon MD Nov 19, 2018 15:32
[2018-11-19 16:00] VITALS: BP 129/62
[2018-11-19 20:00] VITALS: BP 131/61
--- NOTE | 2018-11-19 20:04 | NUR ---
HAND-OFF: Report given to NICHO Berry. Patient in stable condition.
--- NOTE | 2018-11-19 20:07 | NUR ---
NURSE NOTES: Received report from NICHO Schuler. Patient is resting in bed comfortable with no signs of acute distress. Respiration even and non labored on room air. Alert oriented x4. Vital signs stable. Bed in lowest position. Call light within reach. Will continue plan of care.
--- NOTE | 2018-11-19 21:28 | General Progress Note ---
Assessment/Plan Problem List: (1) ESRD (end stage renal disease) ICD Codes: N18.6 - End stage renal disease SNOMED: 90294175 (2) Anemia of chronic disease ICD Codes: D63.8 - Anemia in other chronic diseases classified elsewhere SNOMED: 811249232 (3) Hypertensive kidney disease ICD Codes: I12.9 - Hypertensive chronic kidney disease with stage 1 through stage 4 chronic kidney disease, or unspecified chronic kidney disease SNOMED: 95594612 (4) Hypothyroidism ICD Codes: E03.9 - Hypothyroidism, unspecified SNOMED: 07350984 (5) Pulmonary hypertension ICD Codes: I27.20 - Pulmonary hypertension, unspecified SNOMED: 86405537 (6) Altered level of consciousness ICD Codes: R40.4 - Transient alteration of awareness SNOMED: 1021487 (7) Hypoxemia ICD Codes: R09.02 - Hypoxemia SNOMED: 616080089 Status: progressing Assessment/Plan esrd on hd anemia hypoxia improved anemia of chronic kidney disease incidental findings that are of concern consulted hem /onc and gi liver findings as well Subjective ROS Limited/Unobtainable: Yes Allergies: Coded Allergies: No Known Allergies (Unverified , 11/16/18) Objective Last 24 Hour Vital Signs Date Time Temp Pulse Resp B/P (MAP) Pulse Ox O2 Delivery O2 Flow Rate FiO2 11/19/18 16:00 87 11/19/18 16:00 97.5 91 16 129/62 (84) 99 11/19/18 12:00 78 11/19/18 12:00 98.1 81 16 117/61 (79) 95 11/19/18 09:00 Room Air 11/19/18 08:00 84 11/19/18 08:00 98.1 90 19 114/55 (74) 98 11/19/18 04:00 97.4 77 19 130/61 (84) 98 11/19/18 04:00 83 11/19/18 00:00 89 11/19/18 00:00 98.1 87 18 126/54 (78) 98 Intake and Output 11/18/18 11/19/18 19:00 07:00 Intake Total 620 ml 210 ml Output Total 2000 ml Balance -1380 ml 210 ml Intake Oral 620 ml 210 ml Output Hemodialysis UF 2000 ml # Voids 1 # Bowel Movements 1 Laboratory Tests 11/19/18 13:00: Stool Occult Blood [Pending] Height (Feet): 4 Height (Inches): 11.00 Weight (Pounds): 135 Respiratory/Chest: lungs clear Abdomen: soft Mitchell Doran MD Nov 19, 2018 21:28
[2018-11-19] MEDS: Epogen (for ESRD on dialysis) SUBQ SCH (21:39)
[2018-11-20] VITALS: BP 131/67
[2018-11-20 04:00] VITALS: BP 134/59
[2018-11-20] MEDS: Norco 5mg/325mg tab ORAL PRN (04:34)
[2018-11-20] MEDS: Heparin 5000 units/ml inj SUBQ SCH ×3 (05:42→22:00)
--- NOTE | 2018-11-20 06:44 | General Progress Note ---
Assessment/Plan Assessment/Plan GI CONSULT Dictated - Await abd U/S - Check GGT - Doubt liver malignancy but may benefit from liver biopsy Thank you Ludin Kam Subjective Allergies: Coded Allergies: No Known Allergies (Unverified , 11/16/18) Objective Last 24 Hour Vital Signs Date Time Temp Pulse Resp B/P (MAP) Pulse Ox O2 Delivery O2 Flow Rate FiO2 11/20/18 04:00 81 11/20/18 04:00 98.3 86 20 134/59 (84) 99 11/20/18 00:00 90 11/20/18 00:00 99.4 97 18 131/67 (88) 98 11/19/18 21:00 Room Air 11/19/18 20:00 98.3 89 18 131/61 (84) 100 11/19/18 20:00 90 11/19/18 16:00 87 11/19/18 16:00 97.5 91 16 129/62 (84) 99 11/19/18 12:00 78 11/19/18 12:00 98.1 81 16 117/61 (79) 95 11/19/18 09:00 Room Air 11/19/18 08:00 84 11/19/18 08:00 98.1 90 19 114/55 (74) 98 Intake and Output 11/19/18 11/20/18 19:00 07:00 Intake Total 480 ml Balance 480 ml Intake Oral 480 ml # Voids 1 # Bowel Movements 1 Laboratory Tests 11/19/18 13:00: Stool Occult Blood [Pending] Height (Feet): 4 Height (Inches): 11.00 Weight (Pounds): 135 Malcolm Kam MD Nov 20, 2018 06:44
--- NOTE | 2018-11-20 07:50 | NUR ---
NURSE NOTES: Report received from NICHO Berry. Patient awake. In RA, denies SOB or pain at this time. Abd US being done at bedside. Call light within easy reach.
[2018-11-20 07:51] LABS: HEMOGLOBIN 7.8 G/DL (12.0-16.0); MEAN CORPUSCULAR VOLUME 104 FL (80-99); PLATELET COUNT 84 K/UL (150-450); RED BLOOD COUNT 2.41 M/UL (4.20-5.40); WHITE BLOOD COUNT 2.6 K/UL (4.8-10.8)
--- NOTE | 2018-11-20 07:52 | NUR ---
HAND-OFF: Report given to NICHO Juan. Patient stable with no signs of acute distress
[2018-11-20 08:00] VITALS: BP 139/59
[2018-11-20 08:07] LABS: ALANINE AMINOTRANSFERASE < 6 U/L (12-78); ALBUMIN/GLOBULIN RATIO 0.9 (1.0-2.7); ALKALINE PHOSPHATASE 998 U/L (46-116); ANION GAP 9 mmol/L (5-15); ASPARTATE AMINO TRANSFERASE 15 U/L (15-37); BILIRUBIN,TOTAL 0.4 MG/DL (0.2-1.0); BLOOD UREA NITROGEN 51 mg/dL (7-18); CALCIUM 10.4 MG/DL (8.5-10.1); CARBON DIOXIDE 30 MMOL/L (21-32); CHLORIDE 96 MMOL/L (98-107); CREATININE 6.2 MG/DL (0.55-1.30); PHOSPHORUS 3.8 MG/DL (2.5-4.9); SODIUM 135 MMOL/L (136-145)
--- NOTE | 2018-11-20 08:30 | Consultation ---
DATE OF CONSULTATION: 11/20/2018 GASTROENTEROLOGY CONSULTATION CONSULTING PHYSICIAN: Malcolm Kam M.D. CHIEF COMPLAINT: I was asked to see this patient by Dr. Mitchell Doran today for evaluation of abnormal CT scan of the liver. HISTORY OF PRESENT ILLNESS: The patient is a pleasant 53-year-old woman, who was brought into the hospital due to bleeding issues, which has since been resolved. The patient has undergone a workup in the emergency room and during a CT scan of the chest, abdomen, and pelvis, liver area abnormalities were identified including multiple small calcified lesions of unclear etiology. The patient denies any abdominal pain or nausea or vomiting. She has had a colonoscopy about five years ago. She has not had any prior history of liver disease. There was a finding of ascites, edema, and anasarca, but the patient is also a dialysis patient on a long-term basis. She failed the kidney transplant that was placed in 2010 and she has been on dialysis perhaps for nine years. Her renal failure was due to polycystic kidney disease. 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 Some multiple osteolytic lesions in the thoracic spine were also seen. The patient has hypothyroidism on replacement. PAST MEDICAL HISTORY: History of end-stage renal disease, on dialysis, status post kidney transplant 2010, which failed, renal failure on dialysis for nine years, history of recent hip fracture, hypertension, anemia, hypothyroidism, and thyroid nodule. ALLERGIES: None. FAMILY HISTORY: Noncontributory and negative. SOCIAL HISTORY: The patient is . She has three children. She does not smoke or drink alcohol. MEDICATIONS: See chart list for details. REVIEW OF SYSTEMS: Otherwise negative. PHYSICAL EXAMINATION: GENERAL: This is a pleasant woman, seen in her room. HEENT: Normocephalic and atraumatic. Sclerae anicteric. Oropharynx clear. NECK: Supple. CHEST: Clear to auscultation. CARDIOVASCULAR: Revealed regular rate. ABDOMEN: Soft. Good bowel sounds. There is no organomegaly. EXTREMITIES: Revealed bilateral 1+ edema. NEUROLOGIC: Grossly nonfocal. LABORATORY DATA: Noted. ASSESSMENT: This patient presents with some respiratory issues and now has an incidentally found series of abnormalities in her liver including multiple rim calcified lesions in the left hepatic lobe, which are ill-defined. An ultrasound has been ordered to further evaluate these lesions and the patient's CEA is negative. She does had a markedly elevated alkaline phosphates, but that may be due to renal osteodystrophy. A GGT will be checked to see if there is significant liver source. The patient may benefit from liver biopsy to better characterize these calcified lesions in the left lobe. RECOMMENDATIONS: 1. Await ultrasound evaluation. 2. Check GGT. 3. Follow up hepatitis serologies. 4. Possible liver biopsy once ultrasound was also reviewed. Thank you for asking me to participate in care this patient. Malcolm Kam M.D. DR: HENNA JOB#: [id number] CC:
[2018-11-20] MEDS: Docusate 100mg cap ORAL SCH ×3 (08:57→18:13)
[2018-11-20] MEDS: Aspirin Baby 81mg ORAL SCH ×2 (08:57→09:00)
[2018-11-20] MEDS: Nephrovite tab (Rena-Vite) ORAL SCH (08:58)
[2018-11-20 12:00] VITALS: BP 117/58
--- NOTE | 2018-11-20 12:25 | General Progress Note ---
Assessment/Plan Assessment/Plan Assessment and Recs: # Pancytopenia cause is yet unknown, patient is a very poor historian, and no prior labs noted in the emr or chart --> iron panel reviewed, hiv neg, hep neg --> meds reviewed, no culprits noted --> bone marrow biospy for thursday --> neupogen if anc <1000, hgb >7, plt >20k --> us of the abdomen is pending # Right leg dvt that has recanalized, no evidence of swelling --> given chronic and recannalized, does not need anticoag # Multiple osteolytic lesions, predominantly in T12 but also seen elsewhere, could represent brown tumors that neoplastic etiologies are not completely excludable --> consider a bone marrow biopsy given consistent pancytopenia --> bone scan pending # Thyroid mass -- obtain us thyroid and bx --> consider ent eval # Altered level of consciousness -- could be related to pna --> abx have been started # Healthcare-associated pneumonia # ESRD nephro consulted --> Hd 3x a week # Lactic acidosis --> lactate downtrended # Hypoxic today due to pna # Dehydration, electrolyte disturbance Time of note does not reflect time of encounter Greatly appreciate consultation Subjective Constitutional: Denies: no symptoms, chills, diaphoresis, fever, malaise, weakness, other HEENT: Denies: no symptoms, eye pain, blurred vision, tearing, double vision, ear pain, ear discharge, nose pain, nose congestion, throat pain, throat swelling, mouth pain, mouth swelling, other Cardiovascular: Denies: no symptoms, chest pain, edema, irregular heart rate, lightheadedness, palpitations, syncope, other Gastrointestinal/Abdominal: Denies: no symptoms, abdomen distended, abdominal pain, black stools, tarry stools, blood in stool, constipated, diarrhea, difficulty swallowing, nausea, poor appetite, poor fluid intake, rectal bleeding , vomiting, other Genitourinary: Denies: no symptoms, burning, discharge, frequency, flank pain, hematuria, incontinence, pain, urgency, other Neurologic/Psychiatric: Denies: no symptoms, anxiety, depressed, emotional problems, headache, numbness, paresthesia, pre-existing deficit, seizure, tingling, tremors, weakness, other Allergies: Coded Allergies: No Known Allergies (Unverified , 11/16/18) Subjective 11/18: Pt is seen by bedside, awake and comfortable, no fevers, HD today, cbc reviewed. plt 97 11/19: no major events, HD completed yesterday without issue, 2L were removed, us abd pending 11/20: us of the abd pending, seen by gi, us thyroid pending Objective Last 24 Hour Vital Signs Date Time Temp Pulse Resp B/P (MAP) Pulse Ox O2 Delivery O2 Flow Rate FiO2 11/20/18 09:00 Room Air 11/20/18 08:00 79 11/20/18 08:00 98.2 82 20 139/59 (85) 100 11/20/18 04:00 81 11/20/18 04:00 98.3 86 20 134/59 (84) 99 11/20/18 00:00 90 11/20/18 00:00 99.4 97 18 131/67 (88) 98 11/19/18 21:00 Room Air 11/19/18 20:00 98.3 89 18 131/61 (84) 100 11/19/18 20:00 90 11/19/18 16:00 87 11/19/18 16:00 97.5 91 16 129/62 (84) 99 Intake and Output 11/19/18 11/20/18 19:00 07:00 Intake Total 480 ml 100 ml Balance 480 ml 100 ml Intake Oral 480 ml 100 ml # Voids 1 # Bowel Movements 1 Laboratory Tests 11/19/18 13:00: Stool Occult Blood [Pending] 11/20/18 05:46: White Blood Count 2.6L, Red Blood Count 2.41L, Hemoglobin 7.8L, Hematocrit 25.0L , Mean Corpuscular Volume 104H, Mean Corpuscular Hemoglobin 32.3H, Mean Corpuscular Hemoglobin Concent 31.1L, Red Cell Distribution Width 18.0H, Platelet Count 84L, Mean Platelet Volume 7.2, Neutrophils (%) (Auto) , Lymphocytes (%) (Auto) , Monocytes (%) (Auto) , Eosinophils (%) (Auto) , Basophils (%) (Auto) , Differential Total Cells Counted 100, Neutrophils % ( Manual) 58, Lymphocytes % (Manual) 40, Monocytes % (Manual) 0L, Eosinophils % ( Manual) 1, Basophils % (Manual) 1, Band Neutrophils 0, Platelet Estimate DecreasedL, Platelet Morphology Normal, Hypochromasia 1+, Anisocytosis 2+, Macrocytosis 1+, Sodium Level 135L, Potassium Level 5.0, Chloride Level 96L, Carbon Dioxide Level 30, Anion Gap 9, Blood Urea Nitrogen 51H, Creatinine 6.2H, Estimat Glomerular Filtration Rate 7.0, Glucose Level 87, Calcium Level 10.4H, Phosphorus Level 3.8, Magnesium Level 2.3, Total Bilirubin 0.4, Aspartate Amino Transf (AST/SGOT) 15, Alanine Aminotransferase (ALT/SGPT) < 6L, Alkaline Phosphatase 998H, Total Protein 6.2L, Albumin 3.0L, Globulin 3.2, Albumin/ Globulin Ratio 0.9L Height (Feet): 4 Height (Inches): 11.00 Weight (Pounds): 145 Objective Physical Exam General Appearance: A+O x2, NAD HEENT: normocephalic, atraumatic Neck: non-tender, normal alignment Respiratory/Chest: on 2 Lnc coarse Cardiovascular/Chest: normal peripheral pulses, normal rate Abdomen: normal bowel sounds, non tender Extremities: Limited range of motion of right hip secondary to pain, hip replacement Endy Fox MD Nov 20, 2018 12:24
--- NOTE | 2018-11-20 13:59 | Nephrology Progress Note ---
Assessment/Plan Problem List: (1) Anemia of chronic disease (2) ESRD (end stage renal disease) (3) Hypertensive kidney disease (4) Hypothyroidism Assessment ESRD on HD M W Fr - on HD about 12 years Admitted with CP and SOB Anemia of CKD HTN RENAL transplant, right hip replacement Pneumonia / Hypoxia Hypothyroidism Plan HD 11/18 and 11/20 Phos binders Synthroid per consultants Subjective ROS Limited/Unobtainable: No Objective Objective Last 24 Hour Vital Signs Date Time Temp Pulse Resp B/P (MAP) Pulse Ox O2 Delivery O2 Flow Rate FiO2 11/20/18 09:00 Room Air 11/20/18 08:00 79 11/20/18 08:00 98.2 82 20 139/59 (85) 100 11/20/18 04:00 81 11/20/18 04:00 98.3 86 20 134/59 (84) 99 11/20/18 00:00 90 11/20/18 00:00 99.4 97 18 131/67 (88) 98 11/19/18 21:00 Room Air 11/19/18 20:00 98.3 89 18 131/61 (84) 100 11/19/18 20:00 90 11/19/18 16:00 87 11/19/18 16:00 97.5 91 16 129/62 (84) 99 Intake and Output 11/19/18 11/20/18 19:00 07:00 Intake Total 480 ml 100 ml Balance 480 ml 100 ml Intake Oral 480 ml 100 ml # Voids 1 # Bowel Movements 1 Laboratory Tests 11/20/18 05:46: White Blood Count 2.6L, Red Blood Count 2.41L, Hemoglobin 7.8L, Hematocrit 25.0L , Mean Corpuscular Volume 104H, Mean Corpuscular Hemoglobin 32.3H, Mean Corpuscular Hemoglobin Concent 31.1L, Red Cell Distribution Width 18.0H, Platelet Count 84L, Mean Platelet Volume 7.2, Neutrophils (%) (Auto) , Lymphocytes (%) (Auto) , Monocytes (%) (Auto) , Eosinophils (%) (Auto) , Basophils (%) (Auto) , Differential Total Cells Counted 100, Neutrophils % ( Manual) 58, Lymphocytes % (Manual) 40, Monocytes % (Manual) 0L, Eosinophils % ( Manual) 1, Basophils % (Manual) 1, Band Neutrophils 0, Platelet Estimate DecreasedL, Platelet Morphology Normal, Hypochromasia 1+, Anisocytosis 2+, Macrocytosis 1+, Sodium Level 135L, Potassium Level 5.0, Chloride Level 96L, Carbon Dioxide Level 30, Anion Gap 9, Blood Urea Nitrogen 51H, Creatinine 6.2H, Estimat Glomerular Filtration Rate 7.0, Glucose Level 87, Calcium Level 10.4H, Phosphorus Level 3.8, Magnesium Level 2.3, Total Bilirubin 0.4, Aspartate Amino Transf (AST/SGOT) 15, Alanine Aminotransferase (ALT/SGPT) < 6L, Alkaline Phosphatase 998H, Total Protein 6.2L, Albumin 3.0L, Globulin 3.2, Albumin/ Globulin Ratio 0.9L Height (Feet): 4 Height (Inches): 11.00 Weight (Pounds): 145 General Appearance: no apparent distress Objective no change Dexter Mccall MD Nov 20, 2018 13:59
--- NOTE | 2018-11-20 14:30 | Infectious Diseases Prog Note ---
Assessment/Plan Assessment/Plan antibioitics : none A 1. bronchitis 2. hypertension 3. renal failure 4. pancytopenia P 1. continue off antibiotics Subjective Constitutional: Denies: fever, chills Respiratory: Denies: shortness of breath, dry cough Gastrointestinal/Abdominal: Denies: nausea, vomiting, diarrhea Musculoskeletal: Denies: pain Allergies: Coded Allergies: No Known Allergies (Unverified , 11/16/18) Objective Vital Signs Last 24 Hour Vital Signs Date Time Temp Pulse Resp B/P (MAP) Pulse Ox O2 Delivery O2 Flow Rate FiO2 11/20/18 14:24 Room Air 11/20/18 12:00 98.0 81 20 117/58 (77) 98 11/20/18 09:00 Room Air 11/20/18 08:00 79 11/20/18 08:00 98.2 82 20 139/59 (85) 100 11/20/18 04:00 81 11/20/18 04:00 98.3 86 20 134/59 (84) 99 11/20/18 00:00 90 11/20/18 00:00 99.4 97 18 131/67 (88) 98 11/19/18 21:00 Room Air 11/19/18 20:00 98.3 89 18 131/61 (84) 100 11/19/18 20:00 90 11/19/18 16:00 87 11/19/18 16:00 97.5 91 16 129/62 (84) 99 Height (Feet): 4 Height (Inches): 11.00 Weight (Pounds): 145 Respiratory/Chest: lungs clear Cardiovascular: normal rate, regular rhythm, no gallop/murmur Abdomen: soft, non tender Extremities: other - + edema Laboratory Tests Test 11/20/18 05:46 White Blood Count 2.6 K/UL (4.8-10.8) L Red Blood Count 2.41 M/UL (4.20-5.40) L Hemoglobin 7.8 G/DL (12.0-16.0) L Hematocrit 25.0 % (37.0-47.0) L Mean Corpuscular Volume 104 FL (80-99) H Mean Corpuscular Hemoglobin 32.3 PG (27.0-31.0) H Mean Corpuscular Hemoglobin Concent 31.1 G/DL (32.0-36.0) L Red Cell Distribution Width 18.0 % (11.6-14.8) H Platelet Count 84 K/UL (150-450) L Mean Platelet Volume 7.2 FL (6.5-10.1) Neutrophils (%) (Auto) % (45.0-75.0) Lymphocytes (%) (Auto) % (20.0-45.0) Monocytes (%) (Auto) % (1.0-10.0) Eosinophils (%) (Auto) % (0.0-3.0) Basophils (%) (Auto) % (0.0-2.0) Differential Total Cells Counted 100 Neutrophils % (Manual) 58 % (45-75) Lymphocytes % (Manual) 40 % (20-45) Monocytes % (Manual) 0 % (1-10) L Eosinophils % (Manual) 1 % (0-3) Basophils % (Manual) 1 % (0-2) Band Neutrophils 0 % (0-8) Platelet Estimate Decreased L Platelet Morphology Normal Hypochromasia 1+ Anisocytosis 2+ Macrocytosis 1+ Sodium Level 135 MMOL/L (136-145) L Potassium Level 5.0 MMOL/L (3.5-5.1) Chloride Level 96 MMOL/L (98-107) L Carbon Dioxide Level 30 MMOL/L (21-32) Anion Gap 9 mmol/L (5-15) Blood Urea Nitrogen 51 mg/dL (7-18) H Creatinine 6.2 MG/DL (0.55-1.30) H Estimat Glomerular Filtration Rate 7.0 mL/min (>60) Glucose Level 87 MG/DL (74-106) Calcium Level 10.4 MG/DL (8.5-10.1) H Phosphorus Level 3.8 MG/DL (2.5-4.9) Magnesium Level 2.3 MG/DL (1.8-2.4) Total Bilirubin 0.4 MG/DL (0.2-1.0) Aspartate Amino Transf (AST/SGOT) 15 U/L (15-37) Alanine Aminotransferase (ALT/SGPT) < 6 U/L (12-78) L Alkaline Phosphatase 998 U/L (46-116) H Total Protein 6.2 G/DL (6.4-8.2) L Albumin 3.0 G/DL (3.4-5.0) L Globulin 3.2 g/dL Albumin/Globulin Ratio 0.9 (1.0-2.7) L Current Medications Medications (Trade) Dose Ordered Sig/Claudy Route PRN Reason Start Time Stop Time Status Last Admin Dose Admin Acetaminophen (Tylenol) 650 mg Q6H PRN ORAL Mild Pain/Temp > 100.5 11/17/18 00:45 12/17/18 00:44 Acetaminophen/ Hydrocodone Bitart ([place] 5/325) 1 tab Q4H PRN ORAL For moderate to severe pain 11/17/18 00:45 11/24/18 00:44 11/20/18 04:34 Aspirin (ASA) 81 mg DAILY ORAL 11/17/18 09:00 12/17/18 08:59 11/17/18 09:07 Clonidine HCl (Catapres Tab) 0.1 mg Q6H PRN ORAL For High Blood Pressure 11/17/18 00:45 12/17/18 00:44 Docusate Sodium (Colace) 100 mg TID ORAL 11/17/18 18:00 12/17/18 08:59 11/20/18 13:50 Epoetin Sanya (Procrit (for ESRD on dialysis)) 10,000 units THU-THU-THU SUBQ 11/19/18 21:00 12/19/18 20:59 11/19/18 21:39 Gabapentin (Neurontin) 100 mg Q8HR ORAL 11/17/18 06:00 12/17/18 05:59 11/20/18 13:50 Heparin Sodium (Porcine) (Heparin 5000 units/ml) 5,000 units EVERY 8 HOURS SUBQ 11/19/18 06:00 12/18/18 21:59 11/20/18 05:42 Levothyroxine Sodium (Synthroid) 50 mcg DAILY@0630 ORAL 11/18/18 06:30 12/18/18 06:29 11/20/18 05:42 Pantoprazole (Protonix) 40 mg EVERY 12 HOURS ORAL 11/17/18 21:00 12/17/18 20:59 11/20/18 08:58 Sevelamer Carbonate (Renvela) 2,400 mg THREE TIMES A DAY ORAL 11/17/18 09:00 12/17/18 08:59 11/20/18 13:50 Vitamin B Complex/ Vit C/Folic Acid (Nephrovite) 1 tab DAILY ORAL 11/17/18 09:00 12/17/18 08:59 11/20/18 08:58 Jazmyn Wood MD Nov 20, 2018 14:30
--- NOTE | 2018-11-20 15:16 | Diagnostic Imaging Report ---
EXAM: US Soft Tissues Head and Neck, Thyroid CLINICAL HISTORY: MASS TECHNIQUE: Real-time ultrasound scan of the thyroid gland and soft tissues of the neck with image documentation. COMPARISON: No relevant prior studies available. FINDINGS: Left thyroid lobe: Multiple tortuous vessels throughout the bilateral thyroid lobes. Left lobe measures 2.8 x 1.4 x 1.4 cm. No enlarged or calcified nodules. Right thyroid lobe: Right lobe measures 2.9 x 2.0 x 1.5 cm. Multiple tortuous dilated vessels. No enlarged or calcified nodules. Isthmus: Thyroid isthmus has a thickness of 0.4 cm. No enlarged or calcified nodules. Lymph nodes: Unremarkable. No lymphadenopathy. IMPRESSION: Multiple tortuous vessels throughout the bilateral thyroid lobes, nonspecific. No focal solid thyroid nodules identified.
[2018-11-20 16:00] VITALS: BP 136/61
--- NOTE | 2018-11-20 16:36 | Pulmonology Progress Note ---
Assessment/Plan Problems: (1) Hypoxemia (2) DVT (deep venous thrombosis) (3) Pulmonary hypertension (4) ESRD (end stage renal disease) (5) Altered level of consciousness (6) Anemia of chronic disease (7) Hypothyroidism (8) Thyroid mass (9) Bone lesion (10) Liver lesion Assessment/Plan ASSESSMENT: The patient is a very unfortunate 53-year-old female, a [facility] resident, with a history of end-stage renal disease, status post failed transplant, polycystic kidneys; hypertension; hypothyroidism; and hip fracture presenting with altered mental status and transient hypoxemia at the facility. PROBLEM LIST: 1. Transient hypoxemia. 2. Pulmonary hypertension. 3. R CFV recannulated DVT 4. Elevated D-dimer S/P negative CT-A 5. End-stage renal disease, on dialysis. 6. History of failed renal transplant. 7. Pancytopenia with unclear etiology S/P neg prelim w/u, BMBx pending 8. Altered level of consciousness. 9. Chronic interstitial changes in the lungs, likely underlying lung disease. 10. Bronchitis. 11. Hypothyroidism. 12. Known thyroid nodule. 13. Lactic acidosis, resolved. 14. Recent hip fracture. 15. Thyroid mass 16. Multiple hepatic lesions 17. Bony lesions seen on CT chest TREATMENT PLAN: 1. Optimize pulmonary hygiene/mobilize as tolerated. 2. PRN O2. 3. Thyroid US 4. Abd US 5. GI recs 6. Bone scan 7. F/U heme-onc recs RE: pancytopenia, F/U BM Bx thursday 8. Observe off antibiotics per Infectious Disease, though with a low threshold to start antimicrobial coverage. 9. Monitor volumes, dialysis per Renal. 10. DVT prophylaxis: Hep SQ TID 11. The patient is a Full Code. Subjective Allergies: Coded Allergies: No Known Allergies (Unverified , 11/16/18) Subjective AFVSS on RA Seen by GI - liver US pending No SOB no CP no cough no wheezing no FC Objective Last 24 Hour Vital Signs Date Time Temp Pulse Resp B/P (MAP) Pulse Ox O2 Delivery O2 Flow Rate FiO2 11/20/18 14:24 Room Air 11/20/18 12:00 81 11/20/18 12:00 98.0 81 20 117/58 (77) 98 11/20/18 09:00 Room Air 11/20/18 08:00 79 11/20/18 08:00 98.2 82 20 139/59 (85) 100 11/20/18 04:00 81 11/20/18 04:00 98.3 86 20 134/59 (84) 99 11/20/18 00:00 90 11/20/18 00:00 99.4 97 18 131/67 (88) 98 11/19/18 21:00 Room Air 11/19/18 20:00 98.3 89 18 131/61 (84) 100 11/19/18 20:00 90 Intake and Output 11/19/18 11/20/18 19:00 07:00 Intake Total 480 ml 100 ml Balance 480 ml 100 ml Intake Oral 480 ml 100 ml # Voids 1 # Bowel Movements 1 General Appearance: WD/WN, no acute distress HEENT: normocephalic, atraumatic, anicteric, mucous membranes moist Respiratory/Chest: chest wall non-tender, lungs clear, normal breath sounds, no respiratory distress, no accessory muscle use Cardiovascular: normal peripheral pulses, normal rate, regular rhythm Abdomen: normal bowel sounds, soft, non tender, no organomegaly, non distended , no mass Extremities: no cyanosis, no clubbing, other - 1+ HOLLIE Laboratory Tests 11/20/18 05:46: White Blood Count 2.6L, Red Blood Count 2.41L, Hemoglobin 7.8L, Hematocrit 25.0L , Mean Corpuscular Volume 104H, Mean Corpuscular Hemoglobin 32.3H, Mean Corpuscular Hemoglobin Concent 31.1L, Red Cell Distribution Width 18.0H, Platelet Count 84L, Mean Platelet Volume 7.2, Neutrophils (%) (Auto) , Lymphocytes (%) (Auto) , Monocytes (%) (Auto) , Eosinophils (%) (Auto) , Basophils (%) (Auto) , Differential Total Cells Counted 100, Neutrophils % ( Manual) 58, Lymphocytes % (Manual) 40, Monocytes % (Manual) 0L, Eosinophils % ( Manual) 1, Basophils % (Manual) 1, Band Neutrophils 0, Platelet Estimate DecreasedL, Platelet Morphology Normal, Hypochromasia 1+, Anisocytosis 2+, Macrocytosis 1+, Sodium Level 135L, Potassium Level 5.0, Chloride Level 96L, Carbon Dioxide Level 30, Anion Gap 9, Blood Urea Nitrogen 51H, Creatinine 6.2H, Estimat Glomerular Filtration Rate 7.0, Glucose Level 87, Calcium Level 10.4H, Phosphorus Level 3.8, Magnesium Level 2.3, Total Bilirubin 0.4, Aspartate Amino Transf (AST/SGOT) 15, Alanine Aminotransferase (ALT/SGPT) < 6L, Alkaline Phosphatase 998H, Total Protein 6.2L, Albumin 3.0L, Globulin 3.2, Albumin/ Globulin Ratio 0.9L Current Medications Medications (Trade) Dose Ordered Sig/Claudy Route PRN Reason Start Time Stop Time Status Last Admin Dose Admin Acetaminophen (Tylenol) 650 mg Q6H PRN ORAL Mild Pain/Temp > 100.5 11/17/18 00:45 12/17/18 00:44 Acetaminophen/ Hydrocodone Bitart ([place] 5/325) 1 tab Q4H PRN ORAL For moderate to severe pain 11/17/18 00:45 11/24/18 00:44 11/20/18 04:34 Aspirin (ASA) 81 mg DAILY ORAL 11/17/18 09:00 12/17/18 08:59 11/17/18 09:07 Clonidine HCl (Catapres Tab) 0.1 mg Q6H PRN ORAL For High Blood Pressure 11/17/18 00:45 12/17/18 00:44 Docusate Sodium (Colace) 100 mg TID ORAL 11/17/18 18:00 12/17/18 08:59 11/20/18 13:50 Epoetin Sanya (Procrit (for ESRD on dialysis)) 10,000 units THU-THU-THU SUBQ 11/19/18 21:00 12/19/18 20:59 11/19/18 21:39 Gabapentin (Neurontin) 100 mg Q8HR ORAL 11/17/18 06:00 12/17/18 05:59 11/20/18 13:50 Heparin Sodium (Porcine) (Heparin 5000 units/ml) 5,000 units EVERY 8 HOURS SUBQ 11/19/18 06:00 12/18/18 21:59 11/20/18 05:42 Levothyroxine Sodium (Synthroid) 50 mcg DAILY@0630 ORAL 11/18/18 06:30 12/18/18 06:29 11/20/18 05:42 Pantoprazole (Protonix) 40 mg EVERY 12 HOURS ORAL 11/17/18 21:00 12/17/18 20:59 11/20/18 08:58 Sevelamer Carbonate (Renvela) 2,400 mg THREE TIMES A DAY ORAL 11/17/18 09:00 12/17/18 08:59 11/20/18 13:50 Vitamin B Complex/ Vit C/Folic Acid (Nephrovite) 1 tab DAILY ORAL 11/17/18 09:00 12/17/18 08:59 11/20/18 08:58 Adalberto Carreon MD Nov 20, 2018 16:36
--- NOTE | 2018-11-20 19:07 | General Progress Note ---
Assessment/Plan Problem List: (1) ESRD (end stage renal disease) ICD Codes: N18.6 - End stage renal disease SNOMED: 69128724 (2) Anemia of chronic disease ICD Codes: D63.8 - Anemia in other chronic diseases classified elsewhere SNOMED: 028884445 (3) Hypertensive kidney disease ICD Codes: I12.9 - Hypertensive chronic kidney disease with stage 1 through stage 4 chronic kidney disease, or unspecified chronic kidney disease SNOMED: 33112724 (4) Hypothyroidism ICD Codes: E03.9 - Hypothyroidism, unspecified SNOMED: 35532879 (5) Pulmonary hypertension ICD Codes: I27.20 - Pulmonary hypertension, unspecified SNOMED: 78498267 (6) Altered level of consciousness ICD Codes: R40.4 - Transient alteration of awareness SNOMED: 8305854 (7) Hypoxemia ICD Codes: R09.02 - Hypoxemia SNOMED: 001372358 Status: progressing Assessment/Plan esrd on hd anemia improved hypoxia improved anemia of chronic kidney disease thyroid nodule consulted dr aguilar no bleeding consulted hem /onc liver findings as well Subjective ROS Limited/Unobtainable: Yes Allergies: Coded Allergies: No Known Allergies (Unverified , 11/16/18) Objective Last 24 Hour Vital Signs Date Time Temp Pulse Resp B/P (MAP) Pulse Ox O2 Delivery O2 Flow Rate FiO2 11/20/18 16:00 98.3 86 20 136/61 (86) 98 11/20/18 16:00 88 11/20/18 14:24 Room Air 11/20/18 12:00 81 11/20/18 12:00 98.0 81 20 117/58 (77) 98 11/20/18 09:00 Room Air 11/20/18 08:00 79 11/20/18 08:00 98.2 82 20 139/59 (85) 100 11/20/18 04:00 81 11/20/18 04:00 98.3 86 20 134/59 (84) 99 11/20/18 00:00 90 11/20/18 00:00 99.4 97 18 131/67 (88) 98 11/19/18 21:00 Room Air 11/19/18 20:00 98.3 89 18 131/61 (84) 100 11/19/18 20:00 90 Intake and Output 1/11/19 1/12/19 18:59 06:59 Intake Total 480 ml 100 ml Balance 480 ml 100 ml Intake Oral 480 ml 100 ml # Voids 1 # Bowel Movements 1 Laboratory Tests 11/20/18 05:46: White Blood Count 2.6L, Red Blood Count 2.41L, Hemoglobin 7.8L, Hematocrit 25.0L , Mean Corpuscular Volume 104H, Mean Corpuscular Hemoglobin 32.3H, Mean Corpuscular Hemoglobin Concent 31.1L, Red Cell Distribution Width 18.0H, Platelet Count 84L, Mean Platelet Volume 7.2, Neutrophils (%) (Auto) , Lymphocytes (%) (Auto) , Monocytes (%) (Auto) , Eosinophils (%) (Auto) , Basophils (%) (Auto) , Differential Total Cells Counted 100, Neutrophils % ( Manual) 58, Lymphocytes % (Manual) 40, Monocytes % (Manual) 0L, Eosinophils % ( Manual) 1, Basophils % (Manual) 1, Band Neutrophils 0, Platelet Estimate DecreasedL, Platelet Morphology Normal, Hypochromasia 1+, Anisocytosis 2+, Macrocytosis 1+, Sodium Level 135L, Potassium Level 5.0, Chloride Level 96L, Carbon Dioxide Level 30, Anion Gap 9, Blood Urea Nitrogen 51H, Creatinine 6.2H, Estimat Glomerular Filtration Rate 7.0, Glucose Level 87, Calcium Level 10.4H, Phosphorus Level 3.8, Magnesium Level 2.3, Total Bilirubin 0.4, Aspartate Amino Transf (AST/SGOT) 15, Alanine Aminotransferase (ALT/SGPT) < 6L, Alkaline Phosphatase 998H, Total Protein 6.2L, Albumin 3.0L, Globulin 3.2, Albumin/ Globulin Ratio 0.9L Height (Feet): 4 Height (Inches): 11.00 Weight (Pounds): 145 Cardiovascular: normal rate Respiratory/Chest: lungs clear Abdomen: soft Mitchell Doran MD Nov 20, 2018 19:06
--- NOTE | 2018-11-20 19:33 | NUR ---
HAND-OFF: Report given to NICHO Fernandes. Patient in stable condition.
[2018-11-20 20:00] VITALS: BP 122/54
--- NOTE | 2018-11-20 20:00 | NUR ---
Received report from am nurse Vani pt is alert and upon entering pt room pt just had a bowel movement. Pt i serbian speaking butappears to understand a little malay. Pt had hd output of 2L of urine and pt hasrt arm fistula pt schedule hd mwf butpt had it th Sat. Pt is Npo after midnight for us and thyroid biospsy tor/o malignancy.pt is tele monitor which show snius rhythm in the 90's. Pt is alert and orineted x4 and pt refused flu vaccine but took pna in 2014 pt. has scd's and heparin but it was held platelets is 84.pt denies pain will monitor for pain and anyother needs pt may have.
[2018-11-21] VITALS: BP 126/56
--- NOTE | 2018-11-21 | NUR ---
Entered pt room she is sleeping appears to be resting comfortable no signs of distress noted will continue to monitor for safety otherneeds ian may have.
[2018-11-21 04:00] VITALS: BP 130/66
[2018-11-21] MEDS: Norco 5mg/325mg tab ORAL PRN (04:09)
[2018-11-21] MEDS: Heparin 5000 units/ml inj SUBQ SCH ×2 (06:00→14:00)
--- NOTE | 2018-11-21 07:00 | NUR ---
HAND-OFF: Report given to [].
--- NOTE | 2018-11-21 07:20 | NUR ---
NURSE NOTES: Report received from Camron Fernandes RN. Patient awake. AOx4. In RA, denies SOB. Pain on right hip 11/18. Patient had [place] 3hrs ago. IV not patent. Explained to Patient will have to put another IV, Patient agreed. Breakfast tray at side of bed, Patient positioned to comfort. Bed on lowest position, brakes engaged, side rails upx2. Call light within easy reach.
--- NOTE | 2018-11-21 07:30 | NUR ---
NURSE NOTES: Received 53 year old female in bed sleeping. no acute respiratory distress noted. Bed locked and in low position, side rails up X2. Call light within reach.
[2018-11-21 08:00] VITALS: BP 124/54
[2018-11-21] MEDS: Nephrovite tab (Rena-Vite) ORAL SCH (09:30)
[2018-11-21] MEDS: Docusate 100mg cap ORAL SCH ×3 (09:30→18:25)
--- NOTE | 2018-11-21 10:20 | NUR ---
NURSE NOTES: Patient's right side face is swollen. Mentioned to Patient's son yesterday 11/20/18, Son confirmed her face looks much better. Today, Patient's daughter confirmed Patient's face looks much better than the day she came in to hospital. "My mom's face looks much better, before was swollen more than this...."
--- NOTE | 2018-11-21 10:38 | Infectious Diseases Prog Note ---
Assessment/Plan Assessment/Plan A; Bronchitis likely chronic, altered mental status resolved hypothyroidism, pancytopenia, end-stage renal disease, hypertension, thyroid nodule Pulmonary HPN P: Observe off antibiotic Subjective ROS Limited/Unobtainable: No Constitutional: Reports: no symptoms Respiratory: Reports: no symptoms Cardiovascular: Reports: no symptoms Gastrointestinal/Abdominal: Reports: no symptoms Genitourinary: Reports: no symptoms Allergies: Coded Allergies: No Known Allergies (Unverified , 11/16/18) Objective Vital Signs Last 24 Hour Vital Signs Date Time Temp Pulse Resp B/P (MAP) Pulse Ox O2 Delivery O2 Flow Rate FiO2 11/21/18 08:00 93 11/21/18 08:00 98.4 91 20 124/54 (77) 97 11/21/18 04:00 97.5 90 18 130/66 (87) 98 11/21/18 04:00 94 11/21/18 00:00 91 11/21/18 00:00 98.1 87 17 126/56 (79) 97 11/20/18 21:00 Room Air 11/20/18 20:00 98 11/20/18 20:00 98.5 98 17 122/54 (76) 95 11/20/18 16:00 98.3 86 20 136/61 (86) 98 11/20/18 16:00 88 11/20/18 14:24 Room Air 11/20/18 12:00 81 11/20/18 12:00 98.0 81 20 117/58 (77) 98 Height (Feet): 4 Height (Inches): 11.00 Weight (Pounds): 147 General Appearance: no acute distress HEENT: mucous membranes moist Respiratory/Chest: lungs clear Cardiovascular: normal rate, systolic murmur Abdomen: soft, non tender Extremities: other - edema of R limbs Neurologic/Psychiatric: alert, responsive Laboratory Tests Test 11/21/18 07:28 Gamma Glutamyl Transpeptidase 40 U/L (5-85) Current Medications Medications (Trade) Dose Ordered Sig/Claudy Route PRN Reason Start Time Stop Time Status Last Admin Dose Admin Acetaminophen (Tylenol) 650 mg Q6H PRN ORAL Mild Pain/Temp > 100.5 11/17/18 00:45 12/17/18 00:44 Acetaminophen/ Hydrocodone Bitart ([place] 5/325) 1 tab Q4H PRN ORAL For moderate to severe pain 11/17/18 00:45 11/24/18 00:44 11/21/18 04:09 Aspirin (ASA) 81 mg DAILY ORAL 11/17/18 09:00 12/17/18 08:59 11/17/18 09:07 Clonidine HCl (Catapres Tab) 0.1 mg Q6H PRN ORAL For High Blood Pressure 11/17/18 00:45 12/17/18 00:44 Docusate Sodium (Colace) 100 mg TID ORAL 11/17/18 18:00 12/17/18 08:59 11/21/18 09:30 Epoetin Sanya (Procrit (for ESRD on dialysis)) 10,000 units THU-THU-THU SUBQ 11/19/18 21:00 12/19/18 20:59 11/19/18 21:39 Gabapentin (Neurontin) 100 mg Q8HR ORAL 11/17/18 06:00 12/17/18 05:59 11/21/18 07:50 Heparin Sodium (Porcine) (Heparin 5000 units/ml) 5,000 units EVERY 8 HOURS SUBQ 11/19/18 06:00 12/18/18 21:59 11/20/18 05:42 Levothyroxine Sodium (Synthroid) 50 mcg DAILY@0630 ORAL 11/18/18 06:30 12/18/18 06:29 11/20/18 05:42 Pantoprazole (Protonix) 40 mg EVERY 12 HOURS ORAL 11/17/18 21:00 12/17/18 20:59 11/21/18 09:31 Sevelamer Carbonate (Renvela) 2,400 mg THREE TIMES A DAY ORAL 11/17/18 09:00 12/17/18 08:59 11/21/18 09:31 Vitamin B Complex/ Vit C/Folic Acid (Nephrovite) 1 tab DAILY ORAL 11/17/18 09:00 12/17/18 08:59 11/21/18 09:30 Robe Elkins MD Nov 21, 2018 10:38
[2018-11-21 12:00] VITALS: BP 123/54
--- NOTE | 2018-11-21 12:55 | Pulmonology Progress Note ---
Assessment/Plan Problems: (1) Hypoxemia (2) DVT (deep venous thrombosis) (3) Pulmonary hypertension (4) ESRD (end stage renal disease) (5) Altered level of consciousness (6) Anemia of chronic disease (7) Hypothyroidism (8) Thyroid mass (9) Bone lesion (10) Liver lesion Assessment/Plan ASSESSMENT: The patient is a very unfortunate 53-year-old female, a intermediate resident, with a history of end-stage renal disease, status post failed transplant, polycystic kidneys; hypertension; hypothyroidism; and hip fracture presenting with altered mental status and transient hypoxemia at the facility. PROBLEM LIST: 1. Transient hypoxemia. 2. Pulmonary hypertension. 3. R CFV recannulated DVT 4. Elevated D-dimer S/P negative CT-A 5. End-stage renal disease, on dialysis. 6. History of failed renal transplant. 7. Pancytopenia with unclear etiology S/P neg prelim w/u, BMBx pending 8. Altered level of consciousness. 9. Chronic interstitial changes in the lungs, likely underlying lung disease. 10. Bronchitis. 11. Hypothyroidism. 12. Known thyroid nodule. 13. Lactic acidosis, resolved. 14. Recent hip fracture. 15. Thyroid mass 16. Multiple hepatic lesions 17. Bony lesions seen on CT chest TREATMENT PLAN: 1. Optimize pulmonary hygiene/mobilize as tolerated. 2. PRN O2. 3. Abd US 4. GI recs 5. Bone scan 6. F/U heme-onc recs RE: pancytopenia, F/U BM Bx thursday 7. Observe off antibiotics per Infectious Disease, though with a low threshold to start antimicrobial coverage. 8. Monitor volumes, dialysis per Renal. 9. DVT prophylaxis: Hep SQ TID 10. The patient is a Full Code. Subjective Allergies: Coded Allergies: No Known Allergies (Unverified , 11/16/18) Subjective AFVSS on RA No SOB no CP no cough no wheezing no FC Objective Last 24 Hour Vital Signs Date Time Temp Pulse Resp B/P (MAP) Pulse Ox O2 Delivery O2 Flow Rate FiO2 11/21/18 12:00 98.1 80 20 123/54 (77) 99 11/21/18 09:00 Room Air 11/21/18 08:00 93 11/21/18 08:00 98.4 91 20 124/54 (77) 97 11/21/18 04:00 97.5 90 18 130/66 (87) 98 11/21/18 04:00 94 11/21/18 00:00 91 11/21/18 00:00 98.1 87 17 126/56 (79) 97 11/20/18 21:00 Room Air 11/20/18 20:00 98 11/20/18 20:00 98.5 98 17 122/54 (76) 95 11/20/18 16:00 98.3 86 20 136/61 (86) 98 11/20/18 16:00 88 11/20/18 14:24 Room Air Intake and Output 11/20/18 11/21/18 19:00 07:00 Intake Total 772 ml 50 ml Balance 772 ml 50 ml Intake Oral 772 ml 50 ml # Bowel Movements 1 General Appearance: WD/WN, no acute distress HEENT: normocephalic, atraumatic, anicteric, mucous membranes moist Respiratory/Chest: chest wall non-tender, lungs clear, normal breath sounds, no respiratory distress, no accessory muscle use Cardiovascular: normal peripheral pulses, normal rate, regular rhythm Abdomen: normal bowel sounds, soft, non tender, no organomegaly, non distended , no mass Extremities: no cyanosis, no clubbing, other - trace HOLLIE Laboratory Tests 11/21/18 07:28: Gamma Glutamyl Transpeptidase 40 Current Medications Medications (Trade) Dose Ordered Sig/Claudy Route PRN Reason Start Time Stop Time Status Last Admin Dose Admin Acetaminophen (Tylenol) 650 mg Q6H PRN ORAL Mild Pain/Temp > 100.5 11/17/18 00:45 12/17/18 00:44 Acetaminophen/ Hydrocodone Bitart ([place] 5/325) 1 tab Q4H PRN ORAL For moderate to severe pain 11/17/18 00:45 11/24/18 00:44 11/21/18 04:09 Aspirin (ASA) 81 mg DAILY ORAL 11/17/18 09:00 12/17/18 08:59 11/17/18 09:07 Clonidine HCl (Catapres Tab) 0.1 mg Q6H PRN ORAL For High Blood Pressure 11/17/18 00:45 12/17/18 00:44 Docusate Sodium (Colace) 100 mg TID ORAL 11/17/18 18:00 12/17/18 08:59 11/21/18 09:30 Epoetin Sanya (Procrit (for ESRD on dialysis)) 10,000 units THU-THU-THU SUBQ 11/19/18 21:00 12/19/18 20:59 11/19/18 21:39 Gabapentin (Neurontin) 100 mg Q8HR ORAL 11/17/18 06:00 12/17/18 05:59 11/21/18 07:50 Heparin Sodium (Porcine) (Heparin 5000 units/ml) 5,000 units EVERY 8 HOURS SUBQ 11/19/18 06:00 12/18/18 21:59 11/20/18 05:42 Levothyroxine Sodium (Synthroid) 50 mcg DAILY@0630 ORAL 11/18/18 06:30 12/18/18 06:29 11/20/18 05:42 Pantoprazole (Protonix) 40 mg EVERY 12 HOURS ORAL 11/17/18 21:00 12/17/18 20:59 11/21/18 09:31 Sevelamer Carbonate (Renvela) 2,400 mg THREE TIMES A DAY ORAL 11/17/18 09:00 12/17/18 08:59 11/21/18 09:31 Vitamin B Complex/ Vit C/Folic Acid (Nephrovite) 1 tab DAILY ORAL 11/17/18 09:00 12/17/18 08:59 11/21/18 09:30 Adalberto Carreon MD Nov 21, 2018 12:55
--- NOTE | 2018-11-21 14:47 | General Progress Note ---
Assessment/Plan Assessment/Plan # Pancytopenia cause is yet unknown, patient is a very poor historian, and no prior labs noted in the emr or chart --> iron panel reviewed, hiv neg, hep neg --> meds reviewed, no culprits noted --> bone marrow biospy for thursday, heparin dced --> neupogen if anc <1000, hgb >7, plt >20k --> us of the abdomen is pending # Right leg dvt that has recanalized, no evidence of swelling --> given chronic and recannalized, does not need anticoag # Multiple osteolytic lesions, predominantly in T12 but also seen elsewhere, could represent brown tumors that neoplastic etiologies are not completely excludable --> consider a bone marrow biopsy given consistent pancytopenia --> bone scan pending # Thyroid mass -- thyroid us is neg --> consider ent eval --> us of the thyroid is neg # Altered level of consciousness -- could be related to pna --> abx have been started # Healthcare-associated pneumonia # ESRD nephro consulted --> Hd 3x a week # Lactic acidosis --> lactate downtrended # Hypoxic today due to pna # Dehydration, electrolyte disturbance Time of note does not reflect time of encounter Greatly appreciate consultation Subjective Constitutional: Denies: no symptoms, chills, diaphoresis, fever, malaise, weakness, other HEENT: Denies: no symptoms, eye pain, blurred vision, tearing, double vision, ear pain, ear discharge, nose pain, nose congestion, throat pain, throat swelling, mouth pain, mouth swelling, other Respiratory: Denies: no symptoms, cough, orthopnea, shortness of breath, SOB with excertion, SOB at rest, sputum, stridor, wheezing, other Gastrointestinal/Abdominal: Denies: no symptoms, abdomen distended, abdominal pain, black stools, tarry stools, blood in stool, constipated, diarrhea, difficulty swallowing, nausea, poor appetite, poor fluid intake, rectal bleeding , vomiting, other Neurologic/Psychiatric: Denies: no symptoms, anxiety, depressed, emotional problems, headache, numbness, paresthesia, pre-existing deficit, seizure, tingling, tremors, weakness, other Endocrine: Denies: no symptoms, excessive sweating, flushing, intolerance to cold, intolerance to heat, increased hunger, increased thirst, increased urine, unexplained weight gain, unexplained weight loss, other Hematologic/Lymphatic: Denies: no symptoms, anemia, easy bleeding, easy bruising, other Allergies: Coded Allergies: No Known Allergies (Unverified , 11/16/18) All Systems: reviewed and negative except above Subjective 11/18: Pt is seen by bedside, awake and comfortable, no fevers, HD today, cbc reviewed. plt 97 11/19: no major events, HD completed yesterday without issue, 2L were removed, us abd pending 11/20: us of the abd pending, seen by gi, us thyroid pending 11/21: us thyroid and also bmbx pending for tomorrow, heparin has been discontinued Objective Last 24 Hour Vital Signs Date Time Temp Pulse Resp B/P (MAP) Pulse Ox O2 Delivery O2 Flow Rate FiO2 11/21/18 12:00 88 11/21/18 12:00 98.1 80 20 123/54 (77) 99 11/21/18 09:00 Room Air 11/21/18 08:00 93 11/21/18 08:00 98.4 91 20 124/54 (77) 97 11/21/18 04:00 97.5 90 18 130/66 (87) 98 11/21/18 04:00 94 11/21/18 00:00 91 11/21/18 00:00 98.1 87 17 126/56 (79) 97 11/20/18 21:00 Room Air 11/20/18 20:00 98 11/20/18 20:00 98.5 98 17 122/54 (76) 95 11/20/18 16:00 98.3 86 20 136/61 (86) 98 11/20/18 16:00 88 Intake and Output 11/20/18 11/21/18 19:00 07:00 Intake Total 772 ml 50 ml Balance 772 ml 50 ml Intake Oral 772 ml 50 ml # Bowel Movements 1 Laboratory Tests 11/21/18 07:28: Gamma Glutamyl Transpeptidase 40 Height (Feet): 4 Height (Inches): 11.00 Weight (Pounds): 147 Objective Physical Exam General Appearance: A+O x2, NAD HEENT: normocephalic, atraumatic Neck: non-tender, normal alignment Respiratory/Chest: on 2 Lnc coarse Cardiovascular/Chest: normal peripheral pulses, normal rate Abdomen: normal bowel sounds, non tender Extremities: Limited range of motion of right hip secondary to pain, hip replacement Endy Fox MD Nov 21, 2018 14:47
--- NOTE | 2018-11-21 15:14 | Nephrology Progress Note ---
Assessment/Plan Problem List: (1) ESRD (end stage renal disease) (2) Anemia of chronic disease (3) Hypertensive kidney disease (4) Hypothyroidism Assessment ESRD on HD M W Fr - on HD about 12 years Admitted with CP and SOB Anemia of CKD HTN RENAL transplant, right hip replacement Pneumonia / Hypoxia Hypothyroidism Plan HD next 11/23 Phos binders Synthroid per consultants transfer to med surg Subjective ROS Limited/Unobtainable: No Objective Objective Last 24 Hour Vital Signs Date Time Temp Pulse Resp B/P (MAP) Pulse Ox O2 Delivery O2 Flow Rate FiO2 11/21/18 12:00 88 11/21/18 12:00 98.1 80 20 123/54 (77) 99 11/21/18 09:00 Room Air 11/21/18 08:00 93 11/21/18 08:00 98.4 91 20 124/54 (77) 97 11/21/18 04:00 97.5 90 18 130/66 (87) 98 11/21/18 04:00 94 11/21/18 00:00 91 11/21/18 00:00 98.1 87 17 126/56 (79) 97 11/20/18 21:00 Room Air 11/20/18 20:00 98 11/20/18 20:00 98.5 98 17 122/54 (76) 95 11/20/18 16:00 98.3 86 20 136/61 (86) 98 11/20/18 16:00 88 Intake and Output 11/20/18 11/21/18 19:00 07:00 Intake Total 772 ml 50 ml Balance 772 ml 50 ml Intake Oral 772 ml 50 ml # Bowel Movements 1 Laboratory Tests 11/21/18 07:28: Gamma Glutamyl Transpeptidase 40 Height (Feet): 4 Height (Inches): 11.00 Weight (Pounds): 147 General Appearance: no apparent distress Objective no change Dexter Mccall MD Nov 21, 2018 15:14
[2018-11-21 16:00] VITALS: BP 134/60
--- NOTE | 2018-11-21 17:10 | General Progress Note ---
Assessment/Plan Assessment/Plan Assessment - abnormal liver CT imaging - elevated Alk Phos - ESRD / HD - s/p failed KRT - HTN - Anemia with Heme (+) stools - hypothyroid, with thyroid nodule Recommendations - abdominal ultrasound pending - may need liver biopsy, if ultrasound abnormal - Will need EGD/Colon for OB (+) stools - defer to Dr. Rojo - push po Subjective Allergies: Coded Allergies: No Known Allergies (Unverified , 11/16/18) Subjective Feels OK no abd pain tolerating PO Objective Last 24 Hour Vital Signs Date Time Temp Pulse Resp B/P (MAP) Pulse Ox O2 Delivery O2 Flow Rate FiO2 11/21/18 12:00 88 11/21/18 12:00 98.1 80 20 123/54 (77) 99 11/21/18 09:00 Room Air 11/21/18 08:00 93 11/21/18 08:00 98.4 91 20 124/54 (77) 97 11/21/18 04:00 97.5 90 18 130/66 (87) 98 11/21/18 04:00 94 11/21/18 00:00 91 11/21/18 00:00 98.1 87 17 126/56 (79) 97 11/20/18 21:00 Room Air 11/20/18 20:00 98 11/20/18 20:00 98.5 98 17 122/54 (76) 95 Intake and Output 11/20/18 11/21/18 19:00 07:00 Intake Total 772 ml 50 ml Balance 772 ml 50 ml Intake Oral 772 ml 50 ml # Bowel Movements 1 Laboratory Tests 11/21/18 07:28: Gamma Glutamyl Transpeptidase 40, C-Reactive Protein, Quantitative 0.8 Height (Feet): 4 Height (Inches): 11.00 Weight (Pounds): 147 Objective WDWN NCAT supple CTA RRR soft ND NT no edema non focal Malcolm Kam MD Nov 21, 2018 17:10
--- NOTE | 2018-11-21 19:30 | NUR ---
HAND-OFF: Report given to NICHO Lazo.
[2018-11-21 20:00] VITALS: BP 136/62
--- NOTE | 2018-11-21 21:24 | General Progress Note ---
Assessment/Plan Problem List: (1) ESRD (end stage renal disease) ICD Codes: N18.6 - End stage renal disease SNOMED: 55117691 (2) Anemia of chronic disease ICD Codes: D63.8 - Anemia in other chronic diseases classified elsewhere SNOMED: 045597935 (3) Hypertensive kidney disease ICD Codes: I12.9 - Hypertensive chronic kidney disease with stage 1 through stage 4 chronic kidney disease, or unspecified chronic kidney disease SNOMED: 81167634 (4) Hypothyroidism ICD Codes: E03.9 - Hypothyroidism, unspecified SNOMED: 79189712 (5) Pulmonary hypertension ICD Codes: I27.20 - Pulmonary hypertension, unspecified SNOMED: 31397336 (6) Altered level of consciousness ICD Codes: R40.4 - Transient alteration of awareness SNOMED: 3298597 (7) Hypoxemia ICD Codes: R09.02 - Hypoxemia SNOMED: 753408866 Status: stable, progressing Assessment/Plan esrd on hd vitals stable anemia of chronic kidney disease thyroid nodule consulted dr aguilar consulted hem /onc liver findings as well will discuss w gi re findings Subjective ROS Limited/Unobtainable: Yes Allergies: Coded Allergies: No Known Allergies (Unverified , 11/16/18) Objective Last 24 Hour Vital Signs Date Time Temp Pulse Resp B/P (MAP) Pulse Ox O2 Delivery O2 Flow Rate FiO2 11/21/18 16:00 98.1 87 20 134/60 (84) 100 11/21/18 16:00 81 11/21/18 12:00 88 11/21/18 12:00 98.1 80 20 123/54 (77) 99 11/21/18 09:00 Room Air 11/21/18 08:00 93 11/21/18 08:00 98.4 91 20 124/54 (77) 97 11/21/18 04:00 97.5 90 18 130/66 (87) 98 11/21/18 04:00 94 11/21/18 00:00 91 11/21/18 00:00 98.1 87 17 126/56 (79) 97 Intake and Output 11/20/18 11/21/18 18:59 06:59 Intake Total 772 ml 50 ml Balance 772 ml 50 ml Intake Oral 772 ml 50 ml # Bowel Movements 1 Laboratory Tests 11/21/18 07:28: Gamma Glutamyl Transpeptidase 40, C-Reactive Protein, Quantitative 0.8 Height (Feet): 4 Height (Inches): 11.00 Weight (Pounds): 147 Neck: supple Cardiovascular: normal rate Respiratory/Chest: lungs clear Abdomen: soft Mitchell Doran MD Nov 21, 2018 21:24
--- NOTE | 2018-11-21 23:30 | NUR ---
HAND-OFF: Report given to OBI Hunt.
[2018-11-22] VITALS: BP 146/72
[2018-11-22 04:00] VITALS: BP 141/73
[2018-11-22 06:34] LABS: HEMATOCRIT 25.3 % (37.0-47.0); HEMOGLOBIN 7.8 G/DL (12.0-16.0); MEAN CORPUSCULAR VOLUME 104 FL (80-99); PLATELET COUNT 84 K/UL (150-450); RED BLOOD COUNT 2.43 M/UL (4.20-5.40); RED CELL DISTRIBUTION WIDTH 17.6 % (11.6-14.8); WHITE BLOOD COUNT 3.5 K/UL (4.8-10.8)
[2018-11-22 07:11] LABS: ALANINE AMINOTRANSFERASE 12 U/L (12-78); ALBUMIN 2.9 G/DL (3.4-5.0); ALBUMIN/GLOBULIN RATIO 0.9 (1.0-2.7); ALKALINE PHOSPHATASE 1027 U/L (46-116); ANION GAP 7 mmol/L (5-15); ASPARTATE AMINO TRANSFERASE 12 U/L (15-37); BILIRUBIN,TOTAL 0.3 MG/DL (0.2-1.0); BLOOD UREA NITROGEN 52 mg/dL (7-18); CALCIUM 10.5 MG/DL (8.5-10.1); CARBON DIOXIDE 31 MMOL/L (21-32); CHLORIDE 96 MMOL/L (98-107); PHOSPHORUS 3.7 MG/DL (2.5-4.9); SODIUM 134 MMOL/L (136-145)
--- NOTE | 2018-11-22 07:32 | NUR ---
NURSE NOTES: Received patient from NICHO Hunt. Patient is sitting in bed in semi-hall position, awake, alert and verbally responsive. Turkish speaking. Patient denied any pain at this moment. No signs and symptoms of acute distress at this time. Breathing unlabored in room air. Bed locked and in low position, side rails up X2, call light and bed side table are within reach. Bed alarm on. Will continue to monitor and follow plan of care.
[2018-11-22 08:00] VITALS: BP 151/67
[2018-11-22] MEDS: Aspirin Baby 81mg ORAL SCH (09:30)
[2018-11-22] MEDS: Nephrovite tab (Rena-Vite) ORAL SCH (09:30)
[2018-11-22] MEDS: Docusate 100mg cap ORAL SCH ×3 (09:30→17:34)
--- NOTE | 2018-11-22 09:39 | NUR ---
NURSE NOTES: Patient has BONE MARROW BIOPSY,per Dr. Fox stop Heparin and is ok to continue Aspirin.
[2018-11-22] MEDS ORDERED: Lidocaine 2% MPF 5ml Vial INJ SCH (11:00)
--- NOTE | 2018-11-22 11:17 | Infectious Diseases Prog Note ---
Assessment/Plan Assessment/Plan A; Bronchitis likely chronic, altered mental status resolved hypothyroidism, pancytopenia, end-stage renal disease, hypertension, Pulmonary HPN P: Observe off antibiotic ENT evaluation Subjective ROS Limited/Unobtainable: Yes Constitutional: Reports: no symptoms HEENT: Reports: other - swelling of right jaw angle & neck Respiratory: Reports: no symptoms Allergies: Coded Allergies: No Known Allergies (Unverified , 11/16/18) Objective Vital Signs Last 24 Hour Vital Signs Date Time Temp Pulse Resp B/P (MAP) Pulse Ox O2 Delivery O2 Flow Rate FiO2 11/22/18 08:00 97.5 92 16 151/67 (95) 93 11/22/18 04:00 98.4 84 20 11/22/18 04:00 98.4 84 20 141/73 (95) 99 11/22/18 00:00 98.3 89 18 146/72 (96) 11/21/18 21:00 Room Air 11/21/18 20:00 84 11/21/18 20:00 98.2 85 18 136/62 (86) 99 11/21/18 16:00 98.1 87 20 134/60 (84) 100 11/21/18 16:00 81 11/21/18 12:00 88 11/21/18 12:00 98.1 80 20 123/54 (77) 99 Height (Feet): 4 Height (Inches): 11.00 Weight (Pounds): 154 General Appearance: no acute distress HEENT: other - swelling of neck, R jaw angle Respiratory/Chest: lungs clear Cardiovascular: normal rate, other - AV fistula R arm Abdomen: soft, non tender Extremities: other - edema Neurologic/Psychiatric: alert, oriented x 3, responsive Laboratory Tests Test 11/22/18 05:35 White Blood Count 3.5 K/UL (4.8-10.8) L Red Blood Count 2.43 M/UL (4.20-5.40) L Hemoglobin 7.8 G/DL (12.0-16.0) L Hematocrit 25.3 % (37.0-47.0) L Mean Corpuscular Volume 104 FL (80-99) H Mean Corpuscular Hemoglobin 32.2 PG (27.0-31.0) H Mean Corpuscular Hemoglobin Concent 30.9 G/DL (32.0-36.0) L Red Cell Distribution Width 17.6 % (11.6-14.8) H Platelet Count 84 K/UL (150-450) L Mean Platelet Volume 8.4 FL (6.5-10.1) Neutrophils (%) (Auto) % (45.0-75.0) Lymphocytes (%) (Auto) % (20.0-45.0) Monocytes (%) (Auto) % (1.0-10.0) Eosinophils (%) (Auto) % (0.0-3.0) Basophils (%) (Auto) % (0.0-2.0) Neutrophils % (Manual) Pending Lymphocytes % (Manual) Pending Platelet Estimate Pending Platelet Morphology Pending Sodium Level 134 MMOL/L (136-145) L Potassium Level 5.0 MMOL/L (3.5-5.1) Chloride Level 96 MMOL/L (98-107) L Carbon Dioxide Level 31 MMOL/L (21-32) Anion Gap 7 mmol/L (5-15) Blood Urea Nitrogen 52 mg/dL (7-18) H Creatinine 6.0 MG/DL (0.55-1.30) H Estimat Glomerular Filtration Rate 7.3 mL/min (>60) Glucose Level 81 MG/DL (74-106) Calcium Level 10.5 MG/DL (8.5-10.1) H Phosphorus Level 3.7 MG/DL (2.5-4.9) Magnesium Level 2.0 MG/DL (1.8-2.4) Total Bilirubin 0.3 MG/DL (0.2-1.0) Aspartate Amino Transf (AST/SGOT) 12 U/L (15-37) L Alanine Aminotransferase (ALT/SGPT) 12 U/L (12-78) Alkaline Phosphatase 1027 U/L (46-116) H Pro-B-Type Natriuretic Peptide 2781 pg/mL (0-125) H Total Protein 6.1 G/DL (6.4-8.2) L Albumin 2.9 G/DL (3.4-5.0) L Globulin 3.2 g/dL Albumin/Globulin Ratio 0.9 (1.0-2.7) L Current Medications Medications (Trade) Dose Ordered Sig/Claudy Route PRN Reason Start Time Stop Time Status Last Admin Dose Admin Acetaminophen (Tylenol) 650 mg Q6H PRN ORAL Mild Pain/Temp > 100.5 11/17/18 00:45 12/17/18 00:44 Acetaminophen/ Hydrocodone Bitart ([place] 5/325) 1 tab Q4H PRN ORAL For moderate to severe pain 11/17/18 00:45 11/24/18 00:44 11/21/18 04:09 Aspirin (ASA) 81 mg DAILY ORAL 11/17/18 09:00 12/17/18 08:59 11/22/18 09:30 Clonidine HCl (Catapres Tab) 0.1 mg Q6H PRN ORAL For High Blood Pressure 11/17/18 00:45 12/17/18 00:44 Docusate Sodium (Colace) 100 mg TID ORAL 11/17/18 18:00 12/17/18 08:59 11/22/18 09:30 Epoetin Sanya (Procrit (for ESRD on dialysis)) 10,000 units THU-THU-THU SUBQ 11/19/18 21:00 12/19/18 20:59 11/19/18 21:39 Gabapentin (Neurontin) 100 mg Q8HR ORAL 11/17/18 06:00 12/17/18 05:59 11/22/18 07:17 Levothyroxine Sodium (Synthroid) 50 mcg DAILY@0630 ORAL 11/18/18 06:30 12/18/18 06:29 11/22/18 07:17 Lidocaine HCl (Xylocaine 2% MPF) 10 ml NOW INJ 11/22/18 11:00 11/22/18 12:00 Pantoprazole (Protonix) 40 mg EVERY 12 HOURS ORAL 11/17/18 21:00 12/17/18 20:59 11/22/18 09:30 Sevelamer Carbonate (Renvela) 2,400 mg THREE TIMES A DAY ORAL 11/17/18 09:00 12/17/18 08:59 11/22/18 09:30 Vitamin B Complex/ Vit C/Folic Acid (Nephrovite) 1 tab DAILY ORAL 11/17/18 09:00 12/17/18 08:59 11/22/18 09:30 Robe Elkins MD Nov 22, 2018 11:17
--- NOTE | 2018-11-22 11:51 | GI Progress Note ---
Assessment/Plan Problems: (1) Thyroid mass ICD Codes: E07.9 - Disorder of thyroid, unspecified SNOMED: 018628258 (2) Anemia of chronic disease ICD Codes: D63.8 - Anemia in other chronic diseases classified elsewhere SNOMED: 698184327 (3) ESRD (end stage renal disease) ICD Codes: N18.6 - End stage renal disease SNOMED: 92483468 (4) Liver lesion ICD Codes: K76.9 - Liver disease, unspecified SNOMED: 015331152 Status: unchanged Status Narrative Discussed with Dr. Rojo Assessment/Plan Assessment - abnormal liver CT imaging - elevated Alk Phos - ESRD / HD - s/p failed KRT - HTN - Anemia with Heme (+) stools - hypothyroid, with thyroid nodule Recommendations - abdominal ultrasound pending - may need liver biopsy, if ultrasound abnormal - Will need EGD/Colon for OB (+) stools, hold at this time - push po - fu labs, JASMYNE, SMA, AMA, HFE Genotype The patient was seen and examined at bedside and all new and available data was reviewed in the patients chart. I agree with the above findings, impression and plan. (Patient seen earlier today. Signature stamp does not reflect patient encounter time.). - González Rojo MD Subjective Subjective Limited Objective Last 24 Hour Vital Signs Date Time Temp Pulse Resp B/P (MAP) Pulse Ox O2 Delivery O2 Flow Rate FiO2 11/22/18 08:00 97.5 92 16 151/67 (95) 93 11/22/18 04:00 98.4 84 20 11/22/18 04:00 98.4 84 20 141/73 (95) 99 11/22/18 00:00 98.3 89 18 146/72 (96) 11/21/18 21:00 Room Air 11/21/18 20:00 84 11/21/18 20:00 98.2 85 18 136/62 (86) 99 11/21/18 16:00 98.1 87 20 134/60 (84) 100 11/21/18 16:00 81 11/21/18 12:00 88 11/21/18 12:00 98.1 80 20 123/54 (77) 99 Intake and Output 11/21/18 11/22/18 19:00 07:00 Intake Total 400 ml Output Total 0 ml Balance 400 ml Intake Oral 400 ml Output Urine Total 0 ml # Voids 1 Laboratory Tests Test 11/22/18 05:35 White Blood Count 3.5 K/UL (4.8-10.8) L Red Blood Count 2.43 M/UL (4.20-5.40) L Hemoglobin 7.8 G/DL (12.0-16.0) L Hematocrit 25.3 % (37.0-47.0) L Mean Corpuscular Volume 104 FL (80-99) H Mean Corpuscular Hemoglobin 32.2 PG (27.0-31.0) H Mean Corpuscular Hemoglobin Concent 30.9 G/DL (32.0-36.0) L Red Cell Distribution Width 17.6 % (11.6-14.8) H Platelet Count 84 K/UL (150-450) L Mean Platelet Volume 8.4 FL (6.5-10.1) Neutrophils (%) (Auto) % (45.0-75.0) Lymphocytes (%) (Auto) % (20.0-45.0) Monocytes (%) (Auto) % (1.0-10.0) Eosinophils (%) (Auto) % (0.0-3.0) Basophils (%) (Auto) % (0.0-2.0) Differential Total Cells Counted 100 Neutrophils % (Manual) 79 % (45-75) H Lymphocytes % (Manual) 15 % (20-45) L Monocytes % (Manual) 4 % (1-10) Eosinophils % (Manual) 2 % (0-3) Basophils % (Manual) 0 % (0-2) Band Neutrophils 0 % (0-8) Platelet Estimate Decreased L Platelet Morphology Normal Anisocytosis 1+ Macrocytosis 1+ Sodium Level 134 MMOL/L (136-145) L Potassium Level 5.0 MMOL/L (3.5-5.1) Chloride Level 96 MMOL/L (98-107) L Carbon Dioxide Level 31 MMOL/L (21-32) Anion Gap 7 mmol/L (5-15) Blood Urea Nitrogen 52 mg/dL (7-18) H Creatinine 6.0 MG/DL (0.55-1.30) H Estimat Glomerular Filtration Rate 7.3 mL/min (>60) Glucose Level 81 MG/DL (74-106) Calcium Level 10.5 MG/DL (8.5-10.1) H Phosphorus Level 3.7 MG/DL (2.5-4.9) Magnesium Level 2.0 MG/DL (1.8-2.4) Total Bilirubin 0.3 MG/DL (0.2-1.0) Aspartate Amino Transf (AST/SGOT) 12 U/L (15-37) L Alanine Aminotransferase (ALT/SGPT) 12 U/L (12-78) Alkaline Phosphatase 1027 U/L (46-116) H Pro-B-Type Natriuretic Peptide 2781 pg/mL (0-125) H Total Protein 6.1 G/DL (6.4-8.2) L Albumin 2.9 G/DL (3.4-5.0) L Globulin 3.2 g/dL Albumin/Globulin Ratio 0.9 (1.0-2.7) L Height (Feet): 4 Height (Inches): 11.00 Weight (Pounds): 154 General Appearance: WD/WN, no apparent distress, alert Cardiovascular: normal rate Respiratory/Chest: normal breath sounds, no respiratory distress Abdominal Exam: normal bowel sounds, non tender, soft Extremities: non-tender Vangie Briceño NP Nov 22, 2018 11:51
[2018-11-22 12:00] VITALS: BP 144/70
--- NOTE | 2018-11-22 12:10 | PATHOLOGY BONE BARROW ---
Bone Marrow Aspirate & Biopsy . PROCEDURE: Bone Marrow Aspirate and Biopsy INDICATION: Pancytopenia [employer] REPRESENTATIVE: Anastasiia Lora M.D. CONSENT: Consent was previously obtained from the patient. The risks and benefits were re-explained. The patient agreed to undergo the procedure. A TIMEOUT WAS EXECUTED: Yes PROCEDURE SUMMARY: The patient was laid in the side position. The right posterior iliac crest was prepped and draped in a sterile fashion. The crest of the posterior iliac was located, and the skin as well as surface of the bone was anesthetized with 2 % lidocaine. An aspirating needle was introduced, the bone marrow aspirate was obtained without any difficulty. This was withdrawn the coring needle was advanced into the bone cavity. A bone marrow biopsy was obtained without any complications. ESTIMATED BLOOD LOSS: Negligible REPORTS TO FOLLOW ANASTASIIA LORA Nov 22, 2018 12:10
--- NOTE | 2018-11-22 12:21 | Pulmonology Progress Note ---
Assessment/Plan Problems: (1) Hypoxemia (2) DVT (deep venous thrombosis) (3) Pulmonary hypertension (4) ESRD (end stage renal disease) (5) Altered level of consciousness (6) Anemia of chronic disease (7) Hypothyroidism (8) Thyroid mass (9) Bone lesion (10) Liver lesion Assessment/Plan ASSESSMENT: The patient is a very unfortunate 53-year-old female, a detention resident, with a history of end-stage renal disease, status post failed transplant, polycystic kidneys; hypertension; hypothyroidism; and hip fracture presenting with altered mental status and transient hypoxemia at the facility. PROBLEM LIST: 1. Transient hypoxemia. 2. Pulmonary hypertension. 3. R CFV recannulated DVT 4. Elevated D-dimer S/P negative CT-A 5. End-stage renal disease, on dialysis. 6. History of failed renal transplant. 7. Pancytopenia with unclear etiology S/P neg prelim w/u, BMBx pending 8. Altered level of consciousness. 9. Chronic interstitial changes in the lungs, likely underlying lung disease. 10. Bronchitis. 11. Hypothyroidism. 12. Known thyroid nodule. 13. Lactic acidosis, resolved. 14. Recent hip fracture. 15. Thyroid mass 16. Multiple hepatic lesions 17. Bony lesions seen on CT chest TREATMENT PLAN: 1. Optimize pulmonary hygiene/mobilize as tolerated. 2. PRN O2. 3. Abd US 4. GI recs 5. Bone scan 6. F/U heme-onc recs RE: pancytopenia, F/U BM Bx today 7. Observe off antibiotics per Infectious Disease, though with a low threshold to start antimicrobial coverage. 8. Monitor volumes, dialysis per Renal. 9. DVT prophylaxis: Hep SQ TID 10. The patient is a Full Code. Subjective Allergies: Coded Allergies: No Known Allergies (Unverified , 11/16/18) Subjective AFVSS on RA Getting BM Bx No SOB no CP no cough no wheezing no FC Objective Last 24 Hour Vital Signs Date Time Temp Pulse Resp B/P (MAP) Pulse Ox O2 Delivery O2 Flow Rate FiO2 11/22/18 08:00 97.5 92 16 151/67 (95) 93 11/22/18 04:00 98.4 84 20 11/22/18 04:00 98.4 84 20 141/73 (95) 99 11/22/18 00:00 98.3 89 18 146/72 (96) 11/21/18 21:00 Room Air 11/21/18 20:00 84 11/21/18 20:00 98.2 85 18 136/62 (86) 99 11/21/18 16:00 98.1 87 20 134/60 (84) 100 11/21/18 16:00 81 Intake and Output 11/21/18 11/22/18 19:00 07:00 Intake Total 400 ml Output Total 0 ml Balance 400 ml Intake Oral 400 ml Output Urine Total 0 ml # Voids 1 General Appearance: WD/WN, no acute distress HEENT: normocephalic, atraumatic, anicteric, mucous membranes moist Respiratory/Chest: chest wall non-tender, lungs clear, normal breath sounds, no respiratory distress, no accessory muscle use Breasts: no masses Cardiovascular: normal peripheral pulses, normal rate, regular rhythm Abdomen: normal bowel sounds, soft, non tender, no organomegaly, non distended , no mass Extremities: no cyanosis, no clubbing, other - trace edema Laboratory Tests 11/22/18 05:35: White Blood Count 3.5L, Red Blood Count 2.43L, Hemoglobin 7.8L, Hematocrit 25.3L , Mean Corpuscular Volume 104H, Mean Corpuscular Hemoglobin 32.2H, Mean Corpuscular Hemoglobin Concent 30.9L, Red Cell Distribution Width 17.6H, Platelet Count 84L, Mean Platelet Volume 8.4, Neutrophils (%) (Auto) , Lymphocytes (%) (Auto) , Monocytes (%) (Auto) , Eosinophils (%) (Auto) , Basophils (%) (Auto) , Differential Total Cells Counted 100, Neutrophils % ( Manual) 79H, Lymphocytes % (Manual) 15L, Monocytes % (Manual) 4, Eosinophils % ( Manual) 2, Basophils % (Manual) 0, Band Neutrophils 0, Platelet Estimate DecreasedL, Platelet Morphology Normal, Anisocytosis 1+, Macrocytosis 1+, Sodium Level 134L, Potassium Level 5.0, Chloride Level 96L, Carbon Dioxide Level 31, Anion Gap 7, Blood Urea Nitrogen 52H, Creatinine 6.0H, Estimat Glomerular Filtration Rate 7.3, Glucose Level 81, Calcium Level 10.5H, Phosphorus Level 3.7, Magnesium Level 2.0, Total Bilirubin 0.3, Aspartate Amino Transf (AST/SGOT) 12L, Alanine Aminotransferase (ALT/SGPT) 12, Alkaline Phosphatase 1027H, Pro-B-Type Natriuretic Peptide 2781H, Total Protein 6.1L, Albumin 2.9L, Globulin 3.2, Albumin/Globulin Ratio 0.9L Current Medications Medications (Trade) Dose Ordered Sig/Claudy Route PRN Reason Start Time Stop Time Status Last Admin Dose Admin Acetaminophen (Tylenol) 650 mg Q6H PRN ORAL Mild Pain/Temp > 100.5 11/17/18 00:45 12/17/18 00:44 Acetaminophen/ Hydrocodone Bitart (Bone Gap 5/325) 1 tab Q4H PRN ORAL For moderate to severe pain 11/17/18 00:45 11/24/18 00:44 11/21/18 04:09 Aspirin (ASA) 81 mg DAILY ORAL 11/17/18 09:00 12/17/18 08:59 11/22/18 09:30 Clonidine HCl (Catapres Tab) 0.1 mg Q6H PRN ORAL For High Blood Pressure 11/17/18 00:45 12/17/18 00:44 Docusate Sodium (Colace) 100 mg TID ORAL 11/17/18 18:00 12/17/18 08:59 11/22/18 09:30 Epoetin Sanya (Procrit (for ESRD on dialysis)) 10,000 units THU-THU-THU SUBQ 11/19/18 21:00 12/19/18 20:59 11/19/18 21:39 Gabapentin (Neurontin) 100 mg Q8HR ORAL 11/17/18 06:00 12/17/18 05:59 11/22/18 07:17 Levothyroxine Sodium (Synthroid) 50 mcg DAILY@0630 ORAL 11/18/18 06:30 12/18/18 06:29 11/22/18 07:17 Pantoprazole (Protonix) 40 mg EVERY 12 HOURS ORAL 11/17/18 21:00 12/17/18 20:59 11/22/18 09:30 Sevelamer Carbonate (Renvela) 2,400 mg THREE TIMES A DAY ORAL 11/17/18 09:00 12/17/18 08:59 11/22/18 09:30 Vitamin B Complex/ Vit C/Folic Acid (Nephrovite) 1 tab DAILY ORAL 11/17/18 09:00 2/8/19 08:59 11/22/18 09:30 Adalberto Carreon MD Nov 22, 2018 12:21
--- NOTE | 2018-11-22 12:59 | NUR ---
CASE MANAGEMENT:REVIEW 11/22/18 SI: HYPOXEMIA. ESRD. ANEMIA 97.5 92 16 151/67 93% ON RA H/H-7.8/25.3 PLT-84 BUN+52 CR+6.0 IS: PROCRIT SQ MWF HEPARIN SQ Q8HRS ASA PO QD NEURONTIN PO Q8 : TELEMETRY STATUS DCP: [facility] PLAN: BONE MARROW ASPIRATE DONE TODAY
--- NOTE | 2018-11-22 13:34 | NUR ---
Nuclear Medicine Bone Scan complete.
--- NOTE | 2018-11-22 13:49 | Nephrology Progress Note ---
Assessment/Plan Problem List: (1) ESRD (end stage renal disease) (2) Anemia of chronic disease (3) Hypertensive kidney disease (4) Hypothyroidism Assessment ESRD on HD M W Fr - on HD about 12 years Admitted with CP and SOB Anemia of CKD HTN RENAL transplant, right hip replacement Pneumonia / Hypoxia Hypothyroidism Plan HD next 11/23 Phos binders Synthroid per consultants transfer [facility] Subjective ROS Limited/Unobtainable: No Constitutional: Reports: malaise Objective Objective Last 24 Hour Vital Signs Date Time Temp Pulse Resp B/P (MAP) Pulse Ox O2 Delivery O2 Flow Rate FiO2 11/22/18 12:00 97.9 91 16 144/70 (94) 96 11/22/18 09:00 Room Air 11/22/18 08:00 97.5 92 16 151/67 (95) 93 11/22/18 04:00 98.4 84 20 11/22/18 04:00 98.4 84 20 141/73 (95) 99 11/22/18 00:00 98.3 89 18 146/72 (96) 11/21/18 21:00 Room Air 11/21/18 20:00 84 11/21/18 20:00 98.2 85 18 136/62 (86) 99 11/21/18 16:00 98.1 87 20 134/60 (84) 100 11/21/18 16:00 81 Intake and Output 11/21/18 11/22/18 19:00 07:00 Intake Total 400 ml Output Total 0 ml Balance 400 ml Intake Oral 400 ml Output Urine Total 0 ml # Voids 1 Laboratory Tests 11/22/18 05:35: White Blood Count 3.5L, Red Blood Count 2.43L, Hemoglobin 7.8L, Hematocrit 25.3L , Mean Corpuscular Volume 104H, Mean Corpuscular Hemoglobin 32.2H, Mean Corpuscular Hemoglobin Concent 30.9L, Red Cell Distribution Width 17.6H, Platelet Count 84L, Mean Platelet Volume 8.4, Neutrophils (%) (Auto) , Lymphocytes (%) (Auto) , Monocytes (%) (Auto) , Eosinophils (%) (Auto) , Basophils (%) (Auto) , Differential Total Cells Counted 100, Neutrophils % ( Manual) 79H, Lymphocytes % (Manual) 15L, Monocytes % (Manual) 4, Eosinophils % ( Manual) 2, Basophils % (Manual) 0, Band Neutrophils 0, Platelet Estimate DecreasedL, Platelet Morphology Normal, Anisocytosis 1+, Macrocytosis 1+, Sodium Level 134L, Potassium Level 5.0, Chloride Level 96L, Carbon Dioxide Level 31, Anion Gap 7, Blood Urea Nitrogen 52H, Creatinine 6.0H, Estimat Glomerular Filtration Rate 7.3, Glucose Level 81, Calcium Level 10.5H, Phosphorus Level 3.7, Magnesium Level 2.0, Total Bilirubin 0.3, Aspartate Amino Transf (AST/SGOT) 12L, Alanine Aminotransferase (ALT/SGPT) 12, Alkaline Phosphatase 1027H, Pro-B-Type Natriuretic Peptide 2781H, Total Protein 6.1L, Albumin 2.9L, Globulin 3.2, Albumin/Globulin Ratio 0.9L Height (Feet): 4 Height (Inches): 11.00 Weight (Pounds): 154 General Appearance: no apparent distress Objective no change Dexter Mccall MD Nov 22, 2018 13:49
--- NOTE | 2018-11-22 15:19 | General Progress Note ---
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 but also seen elsewhere, could represent brown tumors that neoplastic etiologies are not completely excludable --> consider a bone marrow biopsy given consistent pancytopenia --> bone scan pending # Thyroid mass -- thyroid us is neg --> consider ent eval --> us of the thyroid is neg # Altered level of consciousness -- could be related to pna --> abx have been started # Healthcare-associated pneumonia # ESRD nephro consulted --> Hd 3x a week # Lactic acidosis --> lactate downtrended # Hypoxic today due to pna # Dehydration, electrolyte disturbance Time of note does not reflect time of encounter Greatly appreciate consultation Subjective ROS Limited/Unobtainable: Yes Allergies: Coded Allergies: No Known Allergies (Unverified , 11/16/18) Subjective 11/18: Pt is seen by bedside, awake and comfortable, no fevers, HD today, cbc reviewed. plt 97 11/19: no major events, HD completed yesterday without issue, 2L were removed, us abd pending 11/20: us of the abd pending, seen by gi, us thyroid pending 11/21: us thyroid and also bmbx pending for tomorrow, heparin has been discontinued 11/22: Pt is resting in bed and calm and confused, Bone Marrow aspirate done today HD next 11/23 Objective Last 24 Hour Vital Signs Date Time Temp Pulse Resp B/P (MAP) Pulse Ox O2 Delivery O2 Flow Rate FiO2 11/22/18 12:00 97.9 91 16 144/70 (94) 96 11/22/18 09:00 Room Air 11/22/18 08:00 97.5 92 16 151/67 (95) 93 11/22/18 04:00 98.4 84 20 11/22/18 04:00 98.4 84 20 141/73 (95) 99 11/22/18 00:00 98.3 89 18 146/72 (96) 11/21/18 21:00 Room Air 11/21/18 20:00 84 11/21/18 20:00 98.2 85 18 136/62 (86) 99 11/21/18 16:00 98.1 87 20 134/60 (84) 100 11/21/18 16:00 81 Intake and Output 11/21/18 11/22/18 19:00 07:00 Intake Total 400 ml Output Total 0 ml Balance 400 ml Intake Oral 400 ml Output Urine Total 0 ml # Voids 1 Laboratory Tests 11/22/18 05:35: White Blood Count 3.5L, Red Blood Count 2.43L, Hemoglobin 7.8L, Hematocrit 25.3L , Mean Corpuscular Volume 104H, Mean Corpuscular Hemoglobin 32.2H, Mean Corpuscular Hemoglobin Concent 30.9L, Red Cell Distribution Width 17.6H, Platelet Count 84L, Mean Platelet Volume 8.4, Neutrophils (%) (Auto) , Lymphocytes (%) (Auto) , Monocytes (%) (Auto) , Eosinophils (%) (Auto) , Basophils (%) (Auto) , Differential Total Cells Counted 100, Neutrophils % ( Manual) 79H, Lymphocytes % (Manual) 15L, Monocytes % (Manual) 4, Eosinophils % ( Manual) 2, Basophils % (Manual) 0, Band Neutrophils 0, Platelet Estimate DecreasedL, Platelet Morphology Normal, Anisocytosis 1+, Macrocytosis 1+, Sodium Level 134L, Potassium Level 5.0, Chloride Level 96L, Carbon Dioxide Level 31, Anion Gap 7, Blood Urea Nitrogen 52H, Creatinine 6.0H, Estimat Glomerular Filtration Rate 7.3, Glucose Level 81, Calcium Level 10.5H, Phosphorus Level 3.7, Magnesium Level 2.0, Total Bilirubin 0.3, Aspartate Amino Transf (AST/SGOT) 12L, Alanine Aminotransferase (ALT/SGPT) 12, Alkaline Phosphatase 1027H, Pro-B-Type Natriuretic Peptide 2781H, Total Protein 6.1L, Albumin 2.9L, Globulin 3.2, Albumin/Globulin Ratio 0.9L Height (Feet): 4 Height (Inches): 11.00 Weight (Pounds): 154 Objective Physical Exam General Appearance: A+O x2, NAD HEENT: normocephalic, atraumatic Neck: non-tender, normal alignment Respiratory/Chest: on 2 Lnc coarse Cardiovascular/Chest: normal peripheral pulses, normal rate Abdomen: normal bowel sounds, non tender Extremities: Limited range of motion of right hip secondary to pain, hip replacement Endy Fox MD Nov 22, 2018 15:19
--- NOTE | 2018-11-22 15:39 | Diagnostic Imaging Report ---
Indication:Abdominal pain Technique: Grayscale and duplex Doppler imaging of the abdomen performed. Comparison: None Findings: The liver is nodular and heterogeneous with the coarsened echotexture. There are multiple cysts present within the liver particularly in the right lobe. There is ascites. Spleen is enlarged measuring between 13 and 14 cm. Patency of the portal vein is demonstrated by Doppler examination. In the area of the best hepatis and gallbladder fossa there are areas of shadowing and calcification, nature of which is not clear on this examination There are in innumerable cysts within both kidneys which appear echogenic with loss of cortical medullary distinction. Gallbladder demonstrated. There is no hydronephrosis. Demonstrated part of the pancreas is unremarkable. The aorta is moderately calcified. CBD is 4 mm. IMPRESSION: Chronic liver disease suspected with the heterogeneous appearance of the liver surface nodularity. Suspected portal hypertension given splenomegaly and ascites. Multiple cysts within the liver. Extensive calcification in the best hepatis/gallbladder fossa region. Nature of this is not known but may be vascular. Medical renal disease Atherosclerotic vascular disease.
[2018-11-22 16:00] VITALS: BP 137/57
--- NOTE | 2018-11-22 16:01 | Diagnostic Imaging Report ---
Indication: Elevated alkaline phosphatase. T12 bone lesion on CT Technique: 25 mCi of technetium 99 M-MDP was injected intravenously. A whole-body bone scan was then performed in anterior and posterior projections. Several spot images were also obtained. Comparison: None Findings: . Normal uptake is demonstrated throughout the axial skeleton. There are no focal lesions identified to indicate metastatic neoplasm. T12 is unremarkable. Impression: Negative whole body bone scan
--- NOTE | 2018-11-22 18:14 | Consultation ---
History of Present Illness General Date patient seen: Nov 22, 2018 Time patient seen: 17:45 Chief Complaint: Altered Level of ConsciousnessThyroid concerns/mass Referring physician: Mary Reason for Consultation: Evaluate size of thyroid Present Illness HPI I have been asked to evaluate thyroid for possible mass. ORTIZ done today was normal size for thyroid without nodules or specific masses. Allergies: Coded Allergies: No Known Allergies (Unverified , 11/16/18) Medication History Scheduled Magnesium Hydroxide* (Milk Of Magnesia*), 30 ML ORAL DAILY, (Reported) Na Phos,M-B/Na Phos,Di-Ba* (Fleet Enema*), 133 ML RECTAL DAILY, (Reported) Scheduled PRN Acetaminophen* (Tylenol Extra Strength*), 500 MG ORAL Q6H PRN for Mild Pain/ Temp > 100.5, (Reported) Hydrocodone Bit/Acetaminophen 5-325* (Bradford 5-325*), 1 TAB ORAL Q6H PRN for For Pain, (Reported) Miscellaneous Medications Bisacodyl (Bisacodyl), 10 MG RC, (Reported) Patient History Limited by: language barrier History Provided By: Medical Record Healthcare decision maker Resuscitation status Full Code Advanced Directive on File Yes Past Medical/Surgical History Past Medical/Surgical History: (1) Healthcare-associated pneumonia (2) Altered level of consciousness (3) Bone lesion (4) Anemia of chronic disease (5) ESRD (end stage renal disease) (6) Hypertensive kidney disease Physical Exam General Appearance: WD/WN, lethargic, overweight HEENT: normocephalic, atraumatic, PERRL, EOMI, pharynx normal, supple Neck: non-tender, normal alignment, normal inspection Last 24 Hour Vital Signs Date Time Temp Pulse Resp B/P (MAP) Pulse Ox O2 Delivery O2 Flow Rate FiO2 11/22/18 16:00 97.1 93 16 137/57 (83) 97 11/22/18 12:00 97.9 91 16 144/70 (94) 96 11/22/18 09:00 Room Air 11/22/18 08:00 97.5 92 16 151/67 (95) 93 11/22/18 04:00 98.4 84 20 11/22/18 04:00 98.4 84 20 141/73 (95) 99 11/22/18 00:00 98.3 89 18 146/72 (96) 11/21/18 21:00 Room Air 11/21/18 20:00 84 11/21/18 20:00 98.2 85 18 136/62 (86) 99 Intake and Output 11/21/18 11/22/18 19:00 07:00 Intake Total 400 ml Output Total 0 ml Balance 400 ml Intake Oral 400 ml Output Urine Total 0 ml # Voids 1 Laboratory Tests Test 11/22/18 05:35 White Blood Count 3.5 K/UL (4.8-10.8) L Red Blood Count 2.43 M/UL (4.20-5.40) L Hemoglobin 7.8 G/DL (12.0-16.0) L Hematocrit 25.3 % (37.0-47.0) L Mean Corpuscular Volume 104 FL (80-99) H Mean Corpuscular Hemoglobin 32.2 PG (27.0-31.0) H Mean Corpuscular Hemoglobin Concent 30.9 G/DL (32.0-36.0) L Red Cell Distribution Width 17.6 % (11.6-14.8) H Platelet Count 84 K/UL (150-450) L Mean Platelet Volume 8.4 FL (6.5-10.1) Neutrophils (%) (Auto) % (45.0-75.0) Lymphocytes (%) (Auto) % (20.0-45.0) Monocytes (%) (Auto) % (1.0-10.0) Eosinophils (%) (Auto) % (0.0-3.0) Basophils (%) (Auto) % (0.0-2.0) Differential Total Cells Counted 100 Neutrophils % (Manual) 79 % (45-75) H Lymphocytes % (Manual) 15 % (20-45) L Monocytes % (Manual) 4 % (1-10) Eosinophils % (Manual) 2 % (0-3) Basophils % (Manual) 0 % (0-2) Band Neutrophils 0 % (0-8) Platelet Estimate Decreased L Platelet Morphology Normal Anisocytosis 1+ Macrocytosis 1+ Sodium Level 134 MMOL/L (136-145) L Potassium Level 5.0 MMOL/L (3.5-5.1) Chloride Level 96 MMOL/L (98-107) L Carbon Dioxide Level 31 MMOL/L (21-32) Anion Gap 7 mmol/L (5-15) Blood Urea Nitrogen 52 mg/dL (7-18) H Creatinine 6.0 MG/DL (0.55-1.30) H Estimat Glomerular Filtration Rate 7.3 mL/min (>60) Glucose Level 81 MG/DL (74-106) Calcium Level 10.5 MG/DL (8.5-10.1) H Phosphorus Level 3.7 MG/DL (2.5-4.9) Magnesium Level 2.0 MG/DL (1.8-2.4) Total Bilirubin 0.3 MG/DL (0.2-1.0) Aspartate Amino Transf (AST/SGOT) 12 U/L (15-37) L Alanine Aminotransferase (ALT/SGPT) 12 U/L (12-78) Alkaline Phosphatase 1027 U/L (46-116) H Pro-B-Type Natriuretic Peptide 2781 pg/mL (0-125) H Total Protein 6.1 G/DL (6.4-8.2) L Albumin 2.9 G/DL (3.4-5.0) L Globulin 3.2 g/dL Albumin/Globulin Ratio 0.9 (1.0-2.7) L Height (Feet): 4 Height (Inches): 11.00 Weight (Pounds): 154 Medications Current Medications Medications (Trade) Dose Ordered Sig/Claudy Route PRN Reason Start Time Stop Time Status Last Admin Dose Admin Acetaminophen (Tylenol) 650 mg Q6H PRN ORAL Mild Pain/Temp > 100.5 11/17/18 00:45 12/17/18 00:44 11/22/18 12:26 Acetaminophen/ Hydrocodone Bitart (Bradford 5/325) 1 tab Q4H PRN ORAL For moderate to severe pain 11/17/18 00:45 11/24/18 00:44 11/21/18 04:09 Aspirin (ASA) 81 mg DAILY ORAL 11/17/18 09:00 12/17/18 08:59 11/22/18 09:30 Clonidine HCl (Catapres Tab) 0.1 mg Q6H PRN ORAL For High Blood Pressure 11/17/18 00:45 12/17/18 00:44 Docusate Sodium (Colace) 100 mg TID ORAL 11/17/18 18:00 12/17/18 08:59 11/22/18 17:34 Epoetin Sanya (Procrit (for ESRD on dialysis)) 10,000 units THU-THU-THU SUBQ 11/19/18 21:00 12/19/18 20:59 11/19/18 21:39 Gabapentin (Neurontin) 100 mg Q8HR ORAL 11/17/18 06:00 12/17/18 05:59 11/22/18 13:49 Levothyroxine Sodium (Synthroid) 50 mcg DAILY@0630 ORAL 11/18/18 06:30 12/18/18 06:29 11/22/18 07:17 Pantoprazole (Protonix) 40 mg EVERY 12 HOURS ORAL 11/17/18 21:00 12/17/18 20:59 11/22/18 09:30 Sevelamer Carbonate (Renvela) 2,400 mg THREE TIMES A DAY ORAL 11/17/18 09:00 12/17/18 08:59 11/22/18 17:34 Vitamin B Complex/ Vit C/Folic Acid (Nephrovite) 1 tab DAILY ORAL 11/17/18 09:00 12/17/18 08:59 11/22/18 09:30 Assessment/Plan Problem List: (1) Thyroid mass ICD Codes: E07.9 - Disorder of thyroid, unspecified SNOMED: 926399269 (2) Healthcare-associated pneumonia ICD Codes: J18.9 - Pneumonia, unspecified organism SNOMED: 957945194 (3) Anemia of chronic disease ICD Codes: D63.8 - Anemia in other chronic diseases classified elsewhere SNOMED: 795961409 (4) ESRD (end stage renal disease) ICD Codes: N18.6 - End stage renal disease SNOMED: 89738419 (5) Hypothyroidism ICD Codes: E03.9 - Hypothyroidism, unspecified SNOMED: 95763040 Status: stable Assessment/Plan 1. No thyroid nodule on exam or ORTIZ of thyroid. 2. labs for hypothyroid not in chart-suggest they be done as outpt and followed up by food production associate or PMD. Thank you for asking my involvement in the care and treatment of this pt. Paulo Jin MD Nov 22, 2018 18:14
--- NOTE | 2018-11-22 19:18 | NUR ---
NURSE NOTES: Received pt. and report from NICHO Wolff. Observe pt. using bedside commode with ENTRY LEVEL MARKETING ASSISTANT assist. Pt. is A/Ox4. superintendent communications is placed, IV site is intact, asymptomatic, patent, bed is in the lowest position and locked, and call light within reach. No acute distress noted at this time. Will continue plan of care.
--- NOTE | 2018-11-22 19:24 | NUR ---
HAND-OFF: Report given to NICHO Diaz.
[2018-11-22 20:00] VITALS: BP 146/71
--- NOTE | 2018-11-22 20:36 | General Progress Note ---
Assessment/Plan Problem List: (1) ESRD (end stage renal disease) ICD Codes: N18.6 - End stage renal disease SNOMED: 72139353 (2) Anemia of chronic disease ICD Codes: D63.8 - Anemia in other chronic diseases classified elsewhere SNOMED: 968128923 (3) Hypertensive kidney disease ICD Codes: I12.9 - Hypertensive chronic kidney disease with stage 1 through stage 4 chronic kidney disease, or unspecified chronic kidney disease SNOMED: 69243703 (4) Hypothyroidism ICD Codes: E03.9 - Hypothyroidism, unspecified SNOMED: 30309378 (5) Pulmonary hypertension ICD Codes: I27.20 - Pulmonary hypertension, unspecified SNOMED: 29519035 (6) Altered level of consciousness ICD Codes: R40.4 - Transient alteration of awareness SNOMED: 9549882 (7) Hypoxemia ICD Codes: R09.02 - Hypoxemia SNOMED: 534493521 Assessment/Plan esrd on hd vitals stable anemia of chronic kidney disease no thyroid nodule dc in am Subjective ROS Limited/Unobtainable: Yes Allergies: Coded Allergies: No Known Allergies (Unverified , 11/16/18) Objective Last 24 Hour Vital Signs Date Time Temp Pulse Resp B/P (MAP) Pulse Ox O2 Delivery O2 Flow Rate FiO2 11/22/18 16:00 97.1 93 16 137/57 (83) 97 11/22/18 12:00 97.9 91 16 144/70 (94) 96 11/22/18 09:00 Room Air 11/22/18 08:00 97.5 92 16 151/67 (95) 93 11/22/18 04:00 98.4 84 20 11/22/18 04:00 98.4 84 20 141/73 (95) 99 11/22/18 00:00 98.3 89 18 146/72 (96) 11/21/18 21:00 Room Air Intake and Output 11/21/18 11/22/18 19:00 07:00 Intake Total 400 ml Output Total 0 ml Balance 400 ml Intake Oral 400 ml Output Urine Total 0 ml # Voids 1 Laboratory Tests 11/22/18 05:35: White Blood Count 3.5L, Red Blood Count 2.43L, Hemoglobin 7.8L, Hematocrit 25.3L , Mean Corpuscular Volume 104H, Mean Corpuscular Hemoglobin 32.2H, Mean Corpuscular Hemoglobin Concent 30.9L, Red Cell Distribution Width 17.6H, Platelet Count 84L, Mean Platelet Volume 8.4, Neutrophils (%) (Auto) , Lymphocytes (%) (Auto) , Monocytes (%) (Auto) , Eosinophils (%) (Auto) , Basophils (%) (Auto) , Differential Total Cells Counted 100, Neutrophils % ( Manual) 79H, Lymphocytes % (Manual) 15L, Monocytes % (Manual) 4, Eosinophils % ( Manual) 2, Basophils % (Manual) 0, Band Neutrophils 0, Platelet Estimate DecreasedL, Platelet Morphology Normal, Anisocytosis 1+, Macrocytosis 1+, Sodium Level 134L, Potassium Level 5.0, Chloride Level 96L, Carbon Dioxide Level 31, Anion Gap 7, Blood Urea Nitrogen 52H, Creatinine 6.0H, Estimat Glomerular Filtration Rate 7.3, Glucose Level 81, Calcium Level 10.5H, Phosphorus Level 3.7, Magnesium Level 2.0, Total Bilirubin 0.3, Aspartate Amino Transf (AST/SGOT) 12L, Alanine Aminotransferase (ALT/SGPT) 12, Alkaline Phosphatase 1027H, Pro-B-Type Natriuretic Peptide 2781H, Total Protein 6.1L, Albumin 2.9L, Globulin 3.2, Albumin/Globulin Ratio 0.9L Height (Feet): 4 Height (Inches): 11.00 Weight (Pounds): 154 Cardiovascular: normal rate Respiratory/Chest: lungs clear Mitchell Doran MD Nov 22, 2018 20:36
[2018-11-22] MEDS: Epogen (for ESRD on dialysis) SUBQ SCH (21:40)
[2018-11-23] VITALS: BP 127/84
[2018-11-23 04:00] VITALS: BP 142/67
--- NOTE | 2018-11-23 07:29 | NUR ---
HAND-OFF: Report given to NICHO Wolff. Pt. is in stable condition. Plan of care endorsed.
--- NOTE | 2018-11-23 07:30 | NUR ---
NURSE NOTES: Received patient from NICHO Diaz. Patient is resting in bed, sleeping. No signs and symptoms of acute distress at this time. Breathing unlabored in room air. Bed locked and in low position, side rails up X2, call light and bed side table within reach. Patient needs to get transfer to Med- Surg, we are waiting for bed at this time. Will continue to monitor and follow plan of care.
[2018-11-23 07:49] LABS: HEMATOCRIT 25.5 % (37.0-47.0); HEMOGLOBIN 8.1 G/DL (12.0-16.0); MEAN CORPUSCULAR VOLUME 103 FL (80-99); PLATELET COUNT 88 K/UL (150-450); RED BLOOD COUNT 2.47 M/UL (4.20-5.40); RED CELL DISTRIBUTION WIDTH 17.1 % (11.6-14.8); WHITE BLOOD COUNT 3.6 K/UL (4.8-10.8)
[2018-11-23 08:00] VITALS: BP 149/68
[2018-11-23 08:09] LABS: ALANINE AMINOTRANSFERASE 10 U/L (12-78); ALBUMIN 2.8 G/DL (3.4-5.0); ALBUMIN/GLOBULIN RATIO 0.9 (1.0-2.7); ALKALINE PHOSPHATASE 984 U/L (46-116); ANION GAP 9 mmol/L (5-15); ASPARTATE AMINO TRANSFERASE 17 U/L (15-37); BILIRUBIN,TOTAL 0.4 MG/DL (0.2-1.0); BLOOD UREA NITROGEN 63 mg/dL (7-18); CALCIUM 10.4 MG/DL (8.5-10.1); CARBON DIOXIDE 30 MMOL/L (21-32); CHLORIDE 96 MMOL/L (98-107); CREATININE 6.9 MG/DL (0.55-1.30); POTASSIUM 5.6 MMOL/L (3.5-5.1); SODIUM 135 MMOL/L (136-145)
[2018-11-23] MEDS: Docusate 100mg cap ORAL SCH ×2 (08:33→13:18)
[2018-11-23] MEDS: Aspirin Baby 81mg ORAL SCH ×2 (08:33→08:37)
[2018-11-23] MEDS: Nephrovite tab (Rena-Vite) ORAL SCH (08:33)
--- NOTE | 2018-11-23 09:20 | NUR ---
*-* DISCHARGE PLANNING PATIENT HAS BEEN REFERRED BACK TO: [facility] P:[phone] F:[phone]
--- NOTE | 2018-11-23 09:35 | NUR ---
*-* DISCHARGE PLANNED PATIENT IS DISCHARGED BACK TO: [facility] ROOM# 120-D SKILLED T:[phone] FOR NURSE TO NURSE REPORT [facility] HAS BEEN ARRANGED FOR CREDIT CONTROL CLERK AT 1030AM S/W NEENA [id number] Addendum: 11/23/18 at 0944 by MIRTA ESTRELLA CM SPOKE TO FAMILY MEMBER SIENNA GÓMEZ LETTING HER KNOW PT (MOM) WAS BEING DISCHARGE BACK TO [facility] TODAY.
--- NOTE | 2018-11-23 10:15 | Nephrology Progress Note ---
Assessment/Plan Problem List: (1) ESRD (end stage renal disease) (2) Anemia of chronic disease (3) Hypertensive kidney disease (4) Hypothyroidism Assessment ESRD on HD M W Fr - on HD about 12 years Admitted with CP and SOB Anemia of CKD HTN RENAL transplant, right hip replacement Pneumonia / Hypoxia Hypothyroidism Plan HD next 11/23 in process Phos binders Synthroid per consultants transfer to med surg ? DC after HD today Subjective ROS Limited/Unobtainable: No Objective Objective Last 24 Hour Vital Signs Date Time Temp Pulse Resp B/P (MAP) Pulse Ox O2 Delivery O2 Flow Rate FiO2 11/23/18 09:00 Room Air 11/23/18 08:00 97.2 88 16 149/68 (95) 97 11/23/18 04:00 98.0 86 18 142/67 (92) 98 11/23/18 00:00 98.0 100 20 127/84 (98) 99 11/22/18 21:00 Room Air 11/22/18 20:00 97.7 92 17 146/71 (96) 96 11/22/18 16:00 97.1 93 16 137/57 (83) 97 11/22/18 12:00 97.9 91 16 144/70 (94) 96 Intake and Output 11/22/18 11/23/18 19:00 07:00 Intake Total 240 ml 200 ml Output Total 0 ml Balance 240 ml 200 ml Intake Oral 240 ml 200 ml Output Urine Total 0 ml # Voids 3 # Bowel Movements 2 1 Laboratory Tests 11/23/18 06:50: White Blood Count 3.6L, Red Blood Count 2.47L, Hemoglobin 8.1L, Hematocrit 25.5L , Mean Corpuscular Volume 103H, Mean Corpuscular Hemoglobin 32.9H, Mean Corpuscular Hemoglobin Concent 31.9L, Red Cell Distribution Width 17.1H, Platelet Count 88L, Mean Platelet Volume 8.4, Neutrophils (%) (Auto) , Lymphocytes (%) (Auto) , Monocytes (%) (Auto) , Eosinophils (%) (Auto) , Basophils (%) (Auto) , Differential Total Cells Counted 100, Neutrophils % ( Manual) 73, Lymphocytes % (Manual) 23, Monocytes % (Manual) 2, Eosinophils % ( Manual) 2, Basophils % (Manual) 0, Band Neutrophils 0, Platelet Estimate DecreasedL, Platelet Morphology Normal, Hypochromasia 1+, Anisocytosis 1+, Macrocytosis 1+, Sodium Level 135L, Potassium Level 5.6H, Chloride Level 96L, Carbon Dioxide Level 30, Anion Gap 9, Blood Urea Nitrogen 63H, Creatinine 6.9H, Estimat Glomerular Filtration Rate 6.2, Glucose Level 85, Calcium Level 10.4H, Total Bilirubin 0.4, Aspartate Amino Transf (AST/SGOT) 17, Alanine Aminotransferase (ALT/SGPT) 10L, Alkaline Phosphatase 984H, Total Protein 5.9L, Albumin 2.8L, Globulin 3.1, Albumin/Globulin Ratio 0.9L, Anti-Nuclear Antibody Screen [Pending], SmRNP Antibodies [Pending], F-Actin IgG Antibody [Pending] Height (Feet): 4 Height (Inches): 11.00 Weight (Pounds): 153 General Appearance: no apparent distress Cardiovascular: normal rate Respiratory/Chest: decreased breath sounds Abdomen: soft Objective no change Dexter Mccall MD Nov 23, 2018 10:15
--- NOTE | 2018-11-23 10:50 | NUR ---
NURSE NOTES: Called to [facility] and report given to NICHO Powell.
--- NOTE | 2018-11-23 11:45 | NUR ---
NURSE NOTES: Patient is done with hemodialysis , her vital sign stable, They took out 1.5 liter of fluid.
[2018-11-23 12:00] VITALS: BP 120/57
--- NOTE | 2018-11-23 12:22 | Infectious Diseases Prog Note ---
Assessment/Plan Assessment/Plan A; Bronchitis likely chronic, altered mental status resolved hypothyroidism, pancytopenia, end-stage renal disease, hypertension, Pulmonary HPN ? Vascular narrowing in head & neck P: Observe off antibiotic Agree with discharge Case was D/W PMD Subjective ROS Limited/Unobtainable: No Constitutional: Reports: no symptoms HEENT: Reports: other - swelling R lower jaw & neck Cardiovascular: Reports: no symptoms Gastrointestinal/Abdominal: Reports: no symptoms Genitourinary: Reports: no symptoms Allergies: Coded Allergies: No Known Allergies (Unverified , 11/16/18) Objective Vital Signs Last 24 Hour Vital Signs Date Time Temp Pulse Resp B/P (MAP) Pulse Ox O2 Delivery O2 Flow Rate FiO2 11/23/18 12:00 97.2 82 17 120/57 (78) 97 11/23/18 09:00 Room Air 11/23/18 08:00 97.2 88 16 149/68 (95) 97 11/23/18 04:00 98.0 86 18 142/67 (92) 98 11/23/18 00:00 98.0 100 20 127/84 (98) 99 11/22/18 21:00 Room Air 11/22/18 20:00 97.7 92 17 146/71 (96) 96 11/22/18 16:00 97.1 93 16 137/57 (83) 97 Height (Feet): 4 Height (Inches): 11.00 Weight (Pounds): 153 General Appearance: no acute distress HEENT: mucous membranes moist, other - edema of R jaw angle & neck Respiratory/Chest: lungs clear Cardiovascular: normal rate Abdomen: soft, non tender Extremities: other - edema of arms Neurologic/Psychiatric: alert, oriented x 3, responsive Laboratory Tests Test 11/23/18 06:50 White Blood Count 3.6 K/UL (4.8-10.8) L Red Blood Count 2.47 M/UL (4.20-5.40) L Hemoglobin 8.1 G/DL (12.0-16.0) L Hematocrit 25.5 % (37.0-47.0) L Mean Corpuscular Volume 103 FL (80-99) H Mean Corpuscular Hemoglobin 32.9 PG (27.0-31.0) H Mean Corpuscular Hemoglobin Concent 31.9 G/DL (32.0-36.0) L Red Cell Distribution Width 17.1 % (11.6-14.8) H Platelet Count 88 K/UL (150-450) L Mean Platelet Volume 8.4 FL (6.5-10.1) Neutrophils (%) (Auto) % (45.0-75.0) Lymphocytes (%) (Auto) % (20.0-45.0) Monocytes (%) (Auto) % (1.0-10.0) Eosinophils (%) (Auto) % (0.0-3.0) Basophils (%) (Auto) % (0.0-2.0) Differential Total Cells Counted 100 Neutrophils % (Manual) 73 % (45-75) Lymphocytes % (Manual) 23 % (20-45) Monocytes % (Manual) 2 % (1-10) Eosinophils % (Manual) 2 % (0-3) Basophils % (Manual) 0 % (0-2) Band Neutrophils 0 % (0-8) Platelet Estimate Decreased L Platelet Morphology Normal Hypochromasia 1+ Anisocytosis 1+ Macrocytosis 1+ Sodium Level 135 MMOL/L (136-145) L Potassium Level 5.6 MMOL/L (3.5-5.1) H Chloride Level 96 MMOL/L (98-107) L Carbon Dioxide Level 30 MMOL/L (21-32) Anion Gap 9 mmol/L (5-15) Blood Urea Nitrogen 63 mg/dL (7-18) H Creatinine 6.9 MG/DL (0.55-1.30) H Estimat Glomerular Filtration Rate 6.2 mL/min (>60) Glucose Level 85 MG/DL (74-106) Calcium Level 10.4 MG/DL (8.5-10.1) H Total Bilirubin 0.4 MG/DL (0.2-1.0) Aspartate Amino Transf (AST/SGOT) 17 U/L (15-37) Alanine Aminotransferase (ALT/SGPT) 10 U/L (12-78) L Alkaline Phosphatase 984 U/L (46-116) H Total Protein 5.9 G/DL (6.4-8.2) L Albumin 2.8 G/DL (3.4-5.0) L Globulin 3.1 g/dL Albumin/Globulin Ratio 0.9 (1.0-2.7) L Anti-Nuclear Antibody Screen Pending SmRNP Antibodies Pending F-Actin IgG Antibody Pending Current Medications Medications (Trade) Dose Ordered Sig/Claudy Route PRN Reason Start Time Stop Time Status Last Admin Dose Admin Acetaminophen (Tylenol) 650 mg Q6H PRN ORAL Mild Pain/Temp > 100.5 11/17/18 00:45 12/17/18 00:44 11/22/18 12:26 Acetaminophen/ Hydrocodone Bitart (Rogers 5/325) 1 tab Q4H PRN ORAL For moderate to severe pain 11/17/18 00:45 11/24/18 00:44 11/21/18 04:09 Aspirin (ASA) 81 mg DAILY ORAL 11/17/18 09:00 12/17/18 08:59 11/22/18 09:30 Clonidine HCl (Catapres Tab) 0.1 mg Q6H PRN ORAL For High Blood Pressure 11/17/18 00:45 12/17/18 00:44 Docusate Sodium (Colace) 100 mg TID ORAL 11/17/18 18:00 12/17/18 08:59 11/23/18 08:33 Epoetin Sanya (Procrit (for ESRD on dialysis)) 10,000 units THU-THU-THU SUBQ 11/19/18 21:00 12/19/18 20:59 11/22/18 21:40 Gabapentin (Neurontin) 100 mg Q8HR ORAL 11/17/18 06:00 12/17/18 05:59 11/23/18 05:57 Levothyroxine Sodium (Synthroid) 50 mcg DAILY@0630 ORAL 11/18/18 06:30 12/18/18 06:29 11/23/18 05:57 Pantoprazole (Protonix) 40 mg EVERY 12 HOURS ORAL 11/17/18 21:00 12/17/18 20:59 11/23/18 08:33 Sevelamer Carbonate (Renvela) 2,400 mg THREE TIMES A DAY ORAL 11/17/18 09:00 12/17/18 08:59 11/23/18 08:33 Vitamin B Complex/ Vit C/Folic Acid (Nephrovite) 1 tab DAILY ORAL 11/17/18 09:00 12/17/18 08:59 11/23/18 08:33 Roeb Elkins MD Nov 23, 2018 12:22
--- NOTE | 2018-11-23 13:39 | GI Progress Note ---
Assessment/Plan Problems: (1) Thyroid mass ICD Codes: E07.9 - Disorder of thyroid, unspecified SNOMED: 513635204 (2) Anemia of chronic disease ICD Codes: D63.8 - Anemia in other chronic diseases classified elsewhere SNOMED: 742693170 (3) ESRD (end stage renal disease) ICD Codes: N18.6 - End stage renal disease SNOMED: 07736247 (4) Liver lesion ICD Codes: K76.9 - Liver disease, unspecified SNOMED: 406970302 Status: unchanged Status Narrative Discussed with Dr. Rojo Assessment/Plan Assessment - abnormal liver CT imaging - elevated Alk Phos - ESRD / HD - s/p failed KRT - HTN - Anemia with Heme (+) stools - hypothyroid, with thyroid nodule -Abdominal ultrasound reviewed Chronic liver disease suspected with the heterogeneous appearance of the liver surface nodularity. Suspected portal hypertension given splenomegaly and ascites. Multiple cysts within the liver. Extensive calcification in the best hepatis/gallbladder fossa region. Nature of this is not known but may be vascular. Medical renal disease Atherosclerotic vascular disease. Recommendations - may need liver biopsy, if ultrasound abnormal - Will need EGD/Colon for OB (+) stools, hold at this time - push po - fu labs, JASMYNE, SMA, AMA, HFE Genotype -Follow-up oncology recommendations Outpatient follow-up Discharge planning The patient was seen and examined at bedside and all new and available data was reviewed in the patients chart. I agree with the above findings, impression and plan. (Patient seen earlier today. Signature stamp does not reflect patient encounter time.). - González Rojo MD Subjective Subjective Limited Objective Last 24 Hour Vital Signs Date Time Temp Pulse Resp B/P (MAP) Pulse Ox O2 Delivery O2 Flow Rate FiO2 11/23/18 12:00 97.2 82 17 120/57 (78) 97 11/23/18 09:00 Room Air 11/23/18 08:00 97.2 88 16 149/68 (95) 97 11/23/18 04:00 98.0 86 18 142/67 (92) 98 11/23/18 00:00 98.0 100 20 127/84 (98) 99 11/22/18 21:00 Room Air 11/22/18 20:00 97.7 92 17 146/71 (96) 96 11/22/18 16:00 97.1 93 16 137/57 (83) 97 Intake and Output 11/22/18 11/23/18 19:00 07:00 Intake Total 240 ml 200 ml Output Total 0 ml Balance 240 ml 200 ml Intake Oral 240 ml 200 ml Output Urine Total 0 ml # Voids 3 # Bowel Movements 2 1 Laboratory Tests Test 11/23/18 06:50 White Blood Count 3.6 K/UL (4.8-10.8) L Red Blood Count 2.47 M/UL (4.20-5.40) L Hemoglobin 8.1 G/DL (12.0-16.0) L Hematocrit 25.5 % (37.0-47.0) L Mean Corpuscular Volume 103 FL (80-99) H Mean Corpuscular Hemoglobin 32.9 PG (27.0-31.0) H Mean Corpuscular Hemoglobin Concent 31.9 G/DL (32.0-36.0) L Red Cell Distribution Width 17.1 % (11.6-14.8) H Platelet Count 88 K/UL (150-450) L Mean Platelet Volume 8.4 FL (6.5-10.1) Neutrophils (%) (Auto) % (45.0-75.0) Lymphocytes (%) (Auto) % (20.0-45.0) Monocytes (%) (Auto) % (1.0-10.0) Eosinophils (%) (Auto) % (0.0-3.0) Basophils (%) (Auto) % (0.0-2.0) Differential Total Cells Counted 100 Neutrophils % (Manual) 73 % (45-75) Lymphocytes % (Manual) 23 % (20-45) Monocytes % (Manual) 2 % (1-10) Eosinophils % (Manual) 2 % (0-3) Basophils % (Manual) 0 % (0-2) Band Neutrophils 0 % (0-8) Platelet Estimate Decreased L Platelet Morphology Normal Hypochromasia 1+ Anisocytosis 1+ Macrocytosis 1+ Sodium Level 135 MMOL/L (136-145) L Potassium Level 5.6 MMOL/L (3.5-5.1) H Chloride Level 96 MMOL/L (98-107) L Carbon Dioxide Level 30 MMOL/L (21-32) Anion Gap 9 mmol/L (5-15) Blood Urea Nitrogen 63 mg/dL (7-18) H Creatinine 6.9 MG/DL (0.55-1.30) H Estimat Glomerular Filtration Rate 6.2 mL/min (>60) Glucose Level 85 MG/DL (74-106) Calcium Level 10.4 MG/DL (8.5-10.1) H Total Bilirubin 0.4 MG/DL (0.2-1.0) Aspartate Amino Transf (AST/SGOT) 17 U/L (15-37) Alanine Aminotransferase (ALT/SGPT) 10 U/L (12-78) L Alkaline Phosphatase 984 U/L (46-116) H Total Protein 5.9 G/DL (6.4-8.2) L Albumin 2.8 G/DL (3.4-5.0) L Globulin 3.1 g/dL Albumin/Globulin Ratio 0.9 (1.0-2.7) L Anti-Nuclear Antibody Screen Pending SmRNP Antibodies Pending F-Actin IgG Antibody Pending Height (Feet): 4 Height (Inches): 11.00 Weight (Pounds): 153 General Appearance: WD/WN, no apparent distress, alert Cardiovascular: normal rate Respiratory/Chest: normal breath sounds, no respiratory distress Abdominal Exam: normal bowel sounds, non tender, soft Extremities: non-tender Vangie Briceño NP Nov 23, 2018 13:39
--- NOTE | 2018-11-23 13:50 | NUR ---
NURSE NOTES: Patient is discharged per Dr. Doran's order. All discharge instruction explained to patient. IV access removed, Heart monitor removed and returned to surveillance system monitor. ID band removed and placed in shredder. Patient had no belonging. Report given to Sherry in [facility] and also to [facility]. Patient left the hospital in stable condition and with [facility].
--- NOTE | 2018-11-23 17:00 | General Progress Note ---
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 but also seen elsewhere, could represent brown tumors that neoplastic etiologies are not completely excludable --> consider a bone marrow biopsy given consistent pancytopenia --> bone scan pending # Thyroid mass -- thyroid us is neg --> consider ent eval --> us of the thyroid is neg # Altered level of consciousness -- could be related to pna --> abx have been started # Healthcare-associated pneumonia # ESRD nephro consulted --> Hd 3x a week # Lactic acidosis --> lactate downtrended # Hypoxic today due to pna # Dehydration, electrolyte disturbance Time of note does not reflect time of encounter Greatly appreciate consultation Subjective Constitutional: Denies: no symptoms, chills, diaphoresis, fever, malaise, weakness, other HEENT: Denies: no symptoms, eye pain, blurred vision, tearing, double vision, ear pain, ear discharge, nose pain, nose congestion, throat pain, throat swelling, mouth pain, mouth swelling, other Cardiovascular: Denies: no symptoms, chest pain, edema, irregular heart rate, lightheadedness, palpitations, syncope, other Respiratory: Denies: no symptoms, cough, orthopnea, shortness of breath, SOB with excertion, SOB at rest, sputum, stridor, wheezing, other Neurologic/Psychiatric: Denies: no symptoms, anxiety, depressed, emotional problems, headache, numbness, paresthesia, pre-existing deficit, seizure, tingling, tremors, weakness, other Endocrine: Denies: no symptoms, excessive sweating, flushing, intolerance to cold, intolerance to heat, increased hunger, increased thirst, increased urine, unexplained weight gain, unexplained weight loss, other Hematologic/Lymphatic: Denies: no symptoms, anemia, easy bleeding, easy bruising, other Allergies: Coded Allergies: No Known Allergies (Unverified , 11/16/18) Subjective 11/18: Pt is seen by bedside, awake and comfortable, no fevers, HD today, cbc reviewed. plt 97 11/19: no major events, HD completed yesterday without issue, 2L were removed, us abd pending 11/20: us of the abd pending, seen by gi, us thyroid pending 11/21: us thyroid and also bmbx pending for tomorrow, heparin has been discontinued 11/22: Pt is resting in bed and calm and confused, Bone Marrow aspirate done today HD next 11/23 11/23: Pt is seen by bedside, awake and comfortable, received HD today, tolerated well. Objective Last 24 Hour Vital Signs Date Time Temp Pulse Resp B/P (MAP) Pulse Ox O2 Delivery O2 Flow Rate FiO2 11/23/18 12:00 97.2 82 17 120/57 (78) 97 11/23/18 09:00 Room Air 11/23/18 08:00 97.2 88 16 149/68 (95) 97 11/23/18 04:00 98.0 86 18 142/67 (92) 98 11/23/18 00:00 98.0 100 20 127/84 (98) 99 11/22/18 21:00 Room Air 11/22/18 20:00 97.7 92 17 146/71 (96) 96 Intake and Output 11/22/18 11/23/18 19:00 07:00 Intake Total 240 ml 200 ml Output Total 0 ml Balance 240 ml 200 ml Intake Oral 240 ml 200 ml Output Urine Total 0 ml # Voids 3 # Bowel Movements 2 1 Laboratory Tests 11/23/18 06:50: White Blood Count 3.6L, Red Blood Count 2.47L, Hemoglobin 8.1L, Hematocrit 25.5L , Mean Corpuscular Volume 103H, Mean Corpuscular Hemoglobin 32.9H, Mean Corpuscular Hemoglobin Concent 31.9L, Red Cell Distribution Width 17.1H, Platelet Count 88L, Mean Platelet Volume 8.4, Neutrophils (%) (Auto) , Lymphocytes (%) (Auto) , Monocytes (%) (Auto) , Eosinophils (%) (Auto) , Basophils (%) (Auto) , Differential Total Cells Counted 100, Neutrophils % ( Manual) 73, Lymphocytes % (Manual) 23, Monocytes % (Manual) 2, Eosinophils % ( Manual) 2, Basophils % (Manual) 0, Band Neutrophils 0, Platelet Estimate DecreasedL, Platelet Morphology Normal, Hypochromasia 1+, Anisocytosis 1+, Macrocytosis 1+, Sodium Level 135L, Potassium Level 5.6H, Chloride Level 96L, Carbon Dioxide Level 30, Anion Gap 9, Blood Urea Nitrogen 63H, Creatinine 6.9H, Estimat Glomerular Filtration Rate 6.2, Glucose Level 85, Calcium Level 10.4H, Total Bilirubin 0.4, Aspartate Amino Transf (AST/SGOT) 17, Alanine Aminotransferase (ALT/SGPT) 10L, Alkaline Phosphatase 984H, Total Protein 5.9L, Albumin 2.8L, Globulin 3.1, Albumin/Globulin Ratio 0.9L, Anti-Nuclear Antibody Screen [Pending], SmRNP Antibodies [Pending], F-Actin IgG Antibody [Pending] Height (Feet): 4 Height (Inches): 11.00 Weight (Pounds): 153 Objective Physical Exam General Appearance: A+O x2, NAD HEENT: normocephalic, atraumatic Neck: non-tender, normal alignment Respiratory/Chest: on 2 Lnc coarse Cardiovascular/Chest: normal peripheral pulses, normal rate Abdomen: normal bowel sounds, non tender Extremities: Limited range of motion of right hip secondary to pain, hip replacement Endy Fox MD Nov 23, 2018 17:00
--- NOTE | 2018-11-24 13:33 | Discharge Summary ---
Discharge Summary Discharge Summary _ DATE OF ADMISSION: 11/16/2018 DATE OF DISCHARGE: 11/23/2018 DISCHARGED BY: REASON FOR ADMISSION: 53 years old female, resident of [facility] facility, with past medical history of end-stage renal disease, on hemodialysis, hypertension, recent history of right hip fracture, hypothyroidism, presented with lethargy for the last 3 days and episode of hypoxia for 1 day. According to the [facility] notes, patient was desaturated to 80%. Per retail asset protection specialist pulse oximetry was 90% at all times. Patient was alert and oriented x1 only, but was able to answer very simple questions. She felt short of breath. Upon evaluation blood pressure was slightly elevated 166/88 ,pulse oximetry was stable with supplemental oxygen. Laboratory workup revealed WBC 3.5, hemoglobin 8.8, hematocrit 28.1. Platelets 98. Coagulation profile was stable. Chemistry showed BUN 46, creatinine 5.3. Lactic acid 2.3. Troponin negative. EKG revealed normal sinus rhythm. No acute ischemic changes. ProBNP 3750. Alkaline phosphatase 1175. CT of the head revealed no acute intracranial bleeding or mass-effect. Cortical volume loss out of proportion to patient's age. Chest x-ray revealed mild bilateral interstitial disease , and given presence of central bronchial wall thickening, probably chronic. Negative for infiltrate or effusion. Patient admitted to telemetry floor for further management . CONSULTANTS: pulmonary ID specialist Dr. Munoz GI specialist Dr. Rojo power mule operator Dr. Mccall neck cutter/oncologist Dr. Fox ENT specialist Dr. Jin [facility] COURSE: Patient admitted to telemetry floor. Supplemental oxygen provided as needed to keep oximetry above 92%. Pulmonary toilet provided as needed. Echocardiogram revealed preserved ejection fraction 60-65% with mild left ventricular hypertrophy. No evidence of wall motion abnormality. Right ventricular systolic pressure of 51 consistent with moderate pulmonary hypertension . Bronchitis likely chronic. Infectious disease doctor recommended to observe patient off antibiotics. Blood culture were negative. Influenza screen test was negative. Patient remained afebrile. Noted elevated d-dimer. Venous duplex bilateral lower extremity revealed recanalized chronic thrombus in common femoral vein right lower extremity and patent deep venous system in left lower extremity. DVT prophylaxis provided. No need for anticoagulation for recanalized thrombus. CT angiogram of the chest revealed no evidence of acute pulmonary emboli or other acute thoracic vascular pathology. Faint areas of ground glass opacity within both lower lungs noted. 17 mm right lower pole thyroid mass . Diffuse osteoporosis, probably reflecting renal osteodystrophy. Multiple osteolytic lesions, predominantly in T12 but also seen elsewhere, could represent brown tumors but t neoplastic etiologies were not completely excludable. Innumerable hepatic cysts as well as subcentimeter low-attenuation hepatic lesions which probably represent benign simple cysts. Evidence of anasarca , small bilateral pleural effusions and ascitic fluid . ENT specialist seen patient for evaluation of thyroid mass. No thyroid mass was found on thyroid ultrasound. Thyroid function test can be done as an outpatient with further follow-up by manager of development or primary care provider. Bone scan was done due to elevated alkaline phosphatase for evaluation of T12 osteolytic bone lesion , seen on CTA chest. Bone scan was negative. Hemodialysis was arranged as per power mule operator with close monitoring of volumes and renal parameters. Electrolytes and renal parameters were closely monitored and corrected as needed. Helmet Hat Puncher followed. Patient with pancytopenia of unclear etiology. Counts were closely monitored. Neupogen was indicated only if absolutely neutrophil count fall below 1000. Hemoglobin and hematocrit were closely monitored with goal to keep hemoglobin above 7. Hepatitis panel was negative. HIV test was nonreactive. Heparin discontinued. Patient undergone bone marrow aspiration and biopsy due to pancytopenia of unclear etiology on 11/22. Cytometry findings were nonspecific , but possibly representing a left myeloid shift or low-grade myelodysplasia in an appropriate clinical setting. Prior to discharge WBC 3.6 hemoglobin 8.1 hematocrit 25.5 and platelets 88. Abdominal ultrasound revealed suspicion for chronic liver disease, given echogenic appearance of the liver surface nodularity. Suspected portal hypertension given splenomegaly and ascites. Medical renal disease noted. GI especially closely followed. GI recommended liver biopsy. Patient will need EGD/Colonoscopy due to guaiac stool being positive, but at this time procedure was deferred. JASMYNE, SMA, AMA, HFE Genotype all were ordered, results pending. Outpatient follow-up with GI specialist recommended. Patient clinically stabilized. Pulse oximetry stable on room air. Mental status back to baseline. Patient was ready for [facility] for continuation of care. 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 DISCHARGE INSTRUCTIONS: [facility] was [facility] to the [facility] facility. Follow up with medical doctor at the facility. I have been assigned to dictate discharge summary for this account. I was not involved in the patient's management. Flavia Mann NP Nov 24, 2018 13:33
== END 2018-11-23 13:50 | DRG 190 ==
LOC: EDBD 16:59 → EMR 19:46 → 2E 19:49 → EDBEDREQ 20:17 → EDBEDREQSVC 20:17 → EDBEDREQ 22:58
PROC: 5A1D70Z Performance of Urinary Filtration, Intermittent, Less than 6 Hours Per Day (ICD-10-PCS; principal; 2018-11-18)
PROC: 07DR3ZX Extraction of Iliac Bone Marrow, Percutaneous Approach, Diagnostic (ICD-10-PCS; 2018-11-22)
DX: J42 Unspecified chronic bronchitis (principal); N18.6 End stage renal disease; E87.2 Acidosis; D61.818 Other pancytopenia; T86.12 Kidney transplant failure; Q61.3 Polycystic kidney, unspecified; I12.0 Hypertensive chronic kidney disease with stage 5 chronic kidney disease or end stage renal disease; J84.9 Interstitial pulmonary disease, unspecified; I82.511 Chronic embolism and thrombosis of right femoral vein; R09.02 Hypoxemia; R41.82 Altered mental status, unspecified; Z99.2 Dependence on renal dialysis; Z96.641 Presence of right artificial hip joint; Y95 Nosocomial condition; E86.0 Dehydration; E03.9 Hypothyroidism, unspecified; I34.0 Nonrheumatic mitral (valve) insufficiency; I36.1 Nonrheumatic tricuspid (valve) insufficiency; D75.89 Other specified diseases of blood and blood-forming organs; D63.1 Anemia in chronic kidney disease; I27.20 Pulmonary hypertension, unspecified; E87.8 Other disorders of electrolyte and fluid balance, not elsewhere classified; K76.9 Liver disease, unspecified; M89.9 Disorder of bone, unspecified; E04.1 Nontoxic single thyroid nodule; Z79.82 Long term (current) use of aspirin; Z90.49 Acquired absence of other specified parts of digestive tract; F41.9 Anxiety disorder, unspecified; E07.9 Disorder of thyroid, unspecified; M81.0 Age-related osteoporosis without current pathological fracture; N25.0 Renal osteodystrophy
CPT/HCPCS: 36415; 36600; 70450; 71045; 71275; 76536; 76700; 78306; 80053; 82270; 82378; 82550; 82607; 82728; 82746; 82803; 82977; 83010; 83036; 83540; 83550; 83605; 83615; 83735; 83880; 84100; 84439; 84443; 84484; 84550; 85007; 85025; 85379; 85610; 85660; 86039; 86140; 86235; 86703; 86705; 86709; 86710; 86803; 87040; 87081; 87340; 93005; 93306; 93970; 99285